=== PATIENT | female | born 1960 | race Caucasian/White ===

== ENCOUNTER 2018-03-01 08:02 | Inpatient (IN) | payer MEDICARE, OTHER ==
[2018-03-01] VITALS (7 sets, daily range): BP systolic 99–124; BP diastolic 62–69
[~2018-03-01] VITALS: Ht 335.3 cm; Wt 79.4 kg
[~2018-03-01 08:02] MED LIST: GABAPENTIN400 MG PO; ISORDIL40 MG PO; LOPRESSOR25 MG PO; METFORMIN HCL500 M2 PO; ZESTRIL10 MG PO
--- OUTSIDE RECORDS SUMMARY | 2018-03-01 08:05 | XMS REPORT | Continuity of Care Document ---
Author Author [facility] Interface Address Unknown Phone Unavailable Problems Problem Status Onset Date Classification Date Reported Comments Source UNK Active 12/04/2016 [facility] N32.1 CT ABD/PEL WITH IV Active 10/27/2016 [facility] SEPTIC SHOCK DUE TO URINARY TRACT INFECT Active 09/15/2016 [facility] ABNORMAL LABS Active 09/15/2016 [facility] CVA Active 08/02/2016 [facility] Anemia Active Problem 10/10/2017 [facility] Anxiety Active Problem 10/10/2017 [facility] Brain injury Active Problem 10/10/2017 [facility] 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 [facility] Stroke Active Problem 10/10/2017 [facility] Diabetes Active Problem 10/10/2017 [facility] GERD (<span ID="[id number]">Confirmed</span>) Active Problem 10/10/2017 [facility] Hypotension Active Problem 10/10/2017 [facility] Presence of indwelling urinary catheter Active Problem 10/10/2017 [facility] Colovesical fistula Active Problem 10/10/2017 [facility] SEVERE SEPSIS WITH SEPTIC SHOCK Active [facility] GASTROINTESTINAL HEMORRHAGE, UNSPECIFIED Active [facility] ACUTE KIDNEY FAILURE, UNSPECIFIED Active [facility] Medications Medication Details Route Status Patient Instructions Ordering Provider Order Date Source Rocephin 1,000 mg, Route: IM, ONCE, Dosing Weight 75, kg, Start date: 09/20/17 13:50:00 CDT, Stop date: 09/20/17 13:50:00 CDT Inactive 09/[facility] sugammadex (ANES) Route: IV, Drug form: SOLN, ONCE, Stop date: 01/24/17 9:43:00 CDT Inactive 01/24/2017 [facility] ondansetron (ANES) Route: IV, Drug form: INJ, ONCE, Stop date: 01/24/17 9:24:00 CDT Inactive 01/24/2017 [facility] neostigmine (ANES) Route: IV, Drug form: INJ, ONCE, Stop date: 01/24/17 9:24:00 CDT Inactive 01/24/2017 [facility] glycopyrrolate (ANES) Route: IV, Drug form: INJ, ONCE, Stop date: 01/24/17 9:24:00 CDT Inactive 01/24/2017 [facility] rocuronium (ANES) Route: IV, Drug form: INJ, ONCE, Stop date: 01/24/17 9:24:00 CDT Inactive 01/24/2017 [facility] lidocaine (ANES) Route: IV, Drug form: INJ, ONCE, Stop date: 01/24/17 9:24:00 CDT Inactive 01/24/2017 [facility] propofol (ANES) Route: IV, Drug form: INJ, ONCE, Stop date: 01/24/17 9:24:00 CDT Inactive 01/24/2017 [facility] fentaNYL (ANES) Route: IV, Drug form: INJ, ONCE, Stop date: 01/24/17 9:24:00 CDT Inactive 01/24/2017 [facility] midazolam (ANES) Route: IV, Drug form: SOLN, ONCE, Stop date: 01/24/17 9:24:00 CDT Inactive 01/24/2017 [facility] famotidine (ANES) Route: IV, Drug form: INJ, ONCE, Stop date: 01/24/17 9:24:00 CDT Inactive 01/24/2017 [facility] Acetaminophen 300 MG / Codeine Phosphate 30 MG Oral Tablet [Tylenol with Codeine #3] 2 tab, PO, Q6H, PRN Pain Score 4-6, # 30 tab, 0 Refill(s) Active 01/24/2017 [facility] Acetaminophen 325 MG / Hydrocodone Bitartrate 5 MG Oral Tablet 1 tab, Route: PO, Dosing Weight 71.818, kg, Q4H, PRN Pain Score 4-6, Start date: 01/24/17 9:17:00 CDT, Duration: 30 day, Stop date: 02/23/17 9:16:00 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 Inactive 01/24/2017 [facility] Hydromorphone 0.3 mg, Route: IVP, Q3H, Dosing Weight 71.818, kg, PRN Pain Score 4-6, Start date: 01/24/17 9:17:00 CDT, Duration: 30 day, Stop date: 02/23/17 9:16:00 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 Inactive 01/24/2017 [facility] ceFAZolin (ANES) (ANES) Route: IV, Drug form: INJ, Start date: 01/24/17 8:40:00 CDT, Stop date: 01/24/17 9:40:00 CDT Inactive 01/24/2017 [facility] ciprofloxacin (ANES) (ANES) Route: IV, Drug form: INJ, Start date: 01/24/17 8:40:00 CDT, Stop date: 01/24/17 9:40:00 CDT Inactive 01/24/2017 [facility] LR 1000 mL INJ (ANES) Route: IV, Total Volume: 1,000, Start date: 01/24/17 8:30:00 CDT, Stop date: 01/24/17 9:30:00 CDT Inactive 01/24/2017 [facility] Albuterol 0.833 MG/ML / Ipratropium [place] 0.167 MG/ML Inhalant Solution 3 mL, Route: NEB, Dosing Weight 71.818, kg, ONCE, STAT, Start date: 01/24/17 8:30:00 CDT, Stop date: 01/24/17 8:30:00 CDT Inactive 01/24/2017 [facility] Calcium Chloride 0.0014 MEQ/ML / Potassium Chloride 0.004 MEQ/ML / Sodium Chloride 0.103 MEQ/ML / Sodium Lactate 0.028 MEQ/ML Injectable Solution 1,000 mL, Rate: 25 ml/hr, Infuse over: 40 hr, Route: IV, Dosing Weight 71.818 kg, Total Volume: 1,000, Start date: 01/24/17 8:30:00 CDT, Duration: 30 day, Stop date: 02/23/17 8:29:00 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 Inactive 01/24/2017 [facility] gabapentin 300 MG Oral Capsule 300 mg=1 cap, PO, TID, # 90 cap, 0 Refill(s) Active 01/22/2017 [facility] Omnipaque 300 100 mL, Route: IV, Drug Form: SOLN, ONCE, Start date: 11/08/16 9:28:00 CDT, Stop date: 11/08/16 9:28:00 CDTNotes: (Same as:Omnipaque 300). WASTE: F/P - Black; E - Municipal Trash Bin Inactive 11/08/2016 [facility] Sulfamethoxazole 400 MG / Trimethoprim 80 MG Oral Tablet [Bactrim] 1 tab, PO, BID, X 14 day, # 28 tab, 0 Refill(s) Active 09/22/2016 [facility] Sulfamethoxazole 800 MG / Trimethoprim 160 MG Oral Tablet [Bactrim] 1 tab, PO, BID, drink plenty of fluids take w/ food, X 14 day, # 28 tab, 0 Refill(s) Inactive 09/22/2016 [facility] potassium chloride 20 mEq, 100 mL, Route: IVPB, Drug form: INJ, Q2H, Dosing Weight 71, kg, Total dose=40 mEq, Start date: 09/22/16 6:00:00 CDT, Duration: 2 doses or times, Stop date: 09/22/16 8:00:00 CDTNotes: (Same as : KCL) Infuse no faster than 10 mEq/hr if given peripherally. Inactive 09/22/2016 [facility] Magnesium Sulfate 3 gm, 6 mL, Route: IV, ONCE, Dosing Weight 71, kg, Start date: 09/22/16 5:20:00 CDT, Stop date: 09/22/16 5:20:00 CDTNotes: (Same as: MgSO4) WASTE: F/P - Sink; E - Municipal Trash Bin MEDICATION W ASTE Product Size: 1000 mg Product Wasted: ___ mg Inactive 09/22/2016 [facility] potassium chloride 20 mEq, 100 mL, Route: IVPB, Drug form: INJ, Q2H, Dosing Weight 71, kg, Total dose=40 mEq, Start date: 09/21/16 8:00:00 CDT, Duration: 2 doses or times, Stop date: 09/21/16 10:00:00 CDTNotes: (Same a s: KCL) Infuse no faster than 10 mEq/hr if given peripherally. Inactive 09/21/2016 [facility] Sodium Chloride 0.154 MEQ/ML Injectable Solution 1,000 mL, Rate: 25 ml/hr, Infuse over: 40 hr, Route: IV, Dosing Weight 71 kg, Total Volume: 1,000, Start date: 09/21/16 7:45:00 CDT, Duration: 30 day, Stop date: 10/21/16 7:44:00 CDT Inactive 09/21/2016 [facility] Miguelytely 4,000 ml, Route: PO, Drug Form: PDR/REC, Dosing Weight 71, kg, ONCE, Start date: 09/20/16 15:00:00 CDT, Duration: 1 doses or times, Stop date: 09/20/16 15:00:00 CDTNotes: (polyethylene glycol electrolyte solution 4 Liter bottle) (Same as: Dustin Colyte) Inactive 09/20/2016 [facility] Docusate Sodium 100 MG Oral Capsule [Colace] 100 mg, 1 cap, Route: PO, Drug form: CAP, BID, Dosing Weight 71, kg, Start date: 09/20/16 9:00:00 CDT, Duration: 30 day, Stop date: 10/19/16 17:00:00 CDTNotes: (Same as: Colace) (Do Not Crush) No Longer Active 09/20/2016 [facility] Magnesium Sulfate 2 gm, 50 mL, Route: IVPB, Drug form: INJ, ONCE, Dosing Weight 71, kg, Start date: 09/20/16 5:32:00 CDT, Stop date: 09/20/16 5:32:00 CDTNotes: WASTE: F/P - Sink; E - Municipal Trash Bin Inactive 09/20/2016 [facility] Golytely 4,000 ml, Route: PO, Drug Form: PDR/REC, Dosing Weight 71, kg, ONCE, Start date: 09/19/16 13:10:00 CDT, Duration: 1 doses or times, Stop date: 09/19/16 13:10:00 CDTNotes: (polyethylene glycol electrolyte solution 4 Liter bottle) (Same as: Juaquinly, Colyte) Inactive 09/19/2016 [facility] Lovenox 40 mg, 0.4 mL, Route: SUB-Q, Drug form: INJ, [id number], Dosing Weight 71, kg, Start date: 09/19/16 12:00:00 CDT, Duration: 30 day, Stop date: 10/18/16 12:00:00 CDTNotes: (Same as: Lovenox) No Longer Active 09/19/2016 [facility] Magnesium Sulfate 2 gm, Route: IVPB, Drug form: INJ, ONCE, Dosing Weight 71, kg, Start date: 09/19/16 11:29:00 CDT, Duration: 2 hr, Stop date: 09/19/16 11:29:00 CDT Inactive 09/19/2016 [facility] magnesium sulfate 1 gm, 100 mL, Route: IVPB, Drug form: INJ, Q1H, Start date: 09/19/16 11:00:00 CDT, Duration: 3 doses or times, Stop date: 09/19/16 13:00:00 CDTNotes: WASTE: F/P - Sink; E - Municipal Trash Bin Inactive 09/19/2016 [facility] Potassium Chloride 1.33 MEQ/ML Oral Solution 40 mEq, 2 tab, Route: PO, Drug form: ERTAB, ONCE, Dosing Weight 71, kg, Start date: 09/19/16 8:55:00 CDT, Stop date: 09/19/16 8:55:00 CDT Inactive 09/19/2016 [facility] Magnesium Sulfate 3 gm, Route: IV, ONCE, Dosing Weight 71, kg, Start date: 09/19/16 8:55:00 CDT, Stop date: 09/19/16 8:55:00 CDT Inactive 09/19/2016 [facility] Lipitor 10 mg, 1 tab, Route: PO, Drug form: TAB, Bedtime, Dosing Weight 71, kg, Start date: 09/18/16 21:00:00 CDT, Duration: 30 day, Stop date: 10/17/16 21:00:00 CDTNotes: (Same As: Lipitor) No Longer Active 09/19/2016 [facility] pantoprazole 40 mg, 1 tab, Route: PO, Drug form: ECTAB, Before Dinner, Dosing Weight 71, kg, Start date: 09/18/16 16:30:00 CDT, Duration: 30 day, Stop date: 10/17/16 16:30:00 CDTNotes: Tablet should not be chewed or crushed. (Same as: Protonix) No Longer Active 09/18/2016 [facility] Restoril 15 mg, 1 cap, Route: PO, Drug form: CAP, Bedtime, Dosing Weight 71, kg, PRN Sleep, Start date: 09/18/16 16:24:00 CDT, Duration: 30 day, Stop date: 10/18/16 16:23:00 CDTNotes: (Same As: Restoril) No Longer Active 09/18/2016 [facility] Ceftriaxone 1 gm, Route: IVPB, Drug form: PDR/INJ, [id number], Dosing Weight 71, kg, Start date: 09/18/16 10:00:00 CDT, Duration: 8 day, Stop date: 09/25/16 10:00:00 CDT, ABX Indication: Urinary Tract Infection Inactive 09/18/2016 [facility] Keflex 500 mg, Route: PO, Drug form: CAP, [id number], Dosing Weight 71, kg, Start date: 09/18/16 10:00:00 CDT, Duration: 8 day, Stop date: 09/25/16 22:00:00 CDT Inactive 09/18/2016 [facility] sodium chloride 0.9% 1000 ml INJ 1,000 mL 1,000 mL, Rate: 70 ml/hr, Infuse over: 14.3 hr, Route: IV, Dosing Weight 71 kg, Total Volume: 1,000, Start date: 09/18/16 9:23:00 CDT, Stop date: 10/18/16 9:22:00 CDT No Longer Active 09/18/2016 [facility] Aspirin 81 mg, 1 tab, Route: PO, Drug form: ECTAB, Daily, Dosing Weight 71, kg, Priority: NOW, Start date: 09/18/16 9:17:00 CDT, Duration: 30 day, Stop date: 10/18/16 9:00:00 CDTNotes: Do not crush or chew. (Same As: Ecotrin) No Longer Active 09/18/2016 [facility] Famotidine 20 mg, 1 tab, Route: PO, Drug form: TAB, Q12H, Dosing Weight 71, kg, Start date: 09/18/16 9:00:00 CDT, Duration: 30 day, Stop date: 10/17/16 21:00:00 CDTNotes: (Same as: Pepcid) Inactive 09/18/2016 [facility] Morphine 2 mg, 1 mL, Route: IVP, Drug form: INJ, Q3H, Dosing Weight 71, kg, PRN Pain Score 7-10, Start date: 09/17/16 21:42:00 CDT, Duration: 30 day, Stop date: 10/17/16 21:41:00 CDT, pain score 1-3 if po pain m eds fail or pt not tolerating poNotes: (Same as:MORPhine Sulfate) No Longer Active 09/18/2016 [facility] Acetaminophen 325 MG / Hydrocodone Bitartrate 10 MG Oral Tablet 1 tab, Route: PO, Drug Form: TAB, Dosing Weight 71, kg, Q4H, PRN Pain Score 6-10, Start date: 09/17/16 21:42:00 CDT, Duration: 30 day, Stop date: 10/17/16 21:41:00 CDTNotes: Do not exceed 4gm/day of acetaminophen. (Same as: Tyrone 325/10) No Longer Active 09/18/2016 [facility] Acetaminophen 325 MG / Hydrocodone Bitartrate 5 MG Oral Tablet 1 tab, Route: PO, Drug Form: TAB, Dosing Weight 71, kg, Q4H, PRN Pain Score 1-5, Start date: 09/17/16 21:42:00 CDT, Duration: 30 day, Stop date: 10/17/16 21:41:00 CDTNotes: (Same as: Tyrone 325/5) Do not exceed 4gm/day of acetaminophen. No Longer Active 09/18/2016 [facility] Ondansetron 4 mg, 2 mL, Route: IVP, Drug form: INJ, Q6H, Dosing Weight 71, kg, PRN Nausea & Vomiting, Start date: 09/17/16 21:42:00 CDT, Duration: 30 day, Stop date: 10/17/16 21:41:00 CDTNotes: (Same as: Zofran) MEDICATION WASTE Product Size: 4 mg Product Wasted: ___ mg No Longer Active 09/18/2016 [facility] Magnesium Oxide 800 mg, 2 tab, Route: PO, Drug form: TAB, PRN, Dosing Weight 71, kg, PRN Abnormal Lab Result, FOR ICU USE ONLY, Start date: 09/17/16 8:43:00 CDT, Duration: 30 day, Stop date: 10/17/16 8:42:00 CDTNotes: (Same as: Mag-Ox 400) Magnesium oxide [id number] elemental magnesium Dose=____mg magnesium oxide (___mg elemental magnesium) No Longer Active 09/17/2016 [facility] Calcium Carbonate 500 MG Chewable Tablet 500 mg, 1 tab, Route: PO, Drug form: CHEWTAB, PRN, Dosing Weight 71, kg, PRN Abnormal Lab Result, FOR ICU USE ONLY, Start date: 09/17/16 8:43:00 CDT, Duration: 30 day, Stop date: 10/17/16 8:42:00 CDTNotes: (Same As: Tums) Calcium Carbonate 500 fh=068 mg elemental calcium Dose= mg calcium carbonate ( mg elemental calcium) No Longer Active 09/17/2016 [facility] Calcium Gluconate 1 gm, 50 mL, Route: IVPB, Drug form: INJ, PRN, Dosing Weight 71, kg, PRN Abnormal Lab Result, Start date: 09/17/16 8:43:00 CDT, Duration: 30 day, Stop date: 10/17/16 8:42:00 CDT, FOR ICU USE ONLYNotes: WASTE: F/P - Sink; E - Municipal Trash Bin No Longer Active 09/17/2016 [facility] potassium phosphate + sodium chloride 0.9% INJ 250 mL 45 mmol, 15 mL, Route: IVPB, PRN, Dosing Weight 71, kg, PRN Abnormal Lab Result, Start date: 09/17/16 8:43:00 CDT, Duration: 30 day, Stop date: 10/17/16 8:42:00 CDT, FOR ICU USE ONLYNotes: (Same as: K Phosphate.) 1 mMol phoshate has 1.47 mEq potassium Infuse over 4 hours No Longer Active 09/17/2016 [facility] potassium phosphate-sodium phosphate 250 mg-280 mg-160 mg oral powder for reconstitution 2 pkt, Route: PO, Drug Form: PDR/REC, Dosing Weight 71, kg, PRN, PRN Abnormal Lab Result, FOR ICU USE ONLY, Start date: 09/17/16 8:43:00 CDT, Duration: 30 day, Stop date: 10/17/16 8:42:00 CDTNotes: (Same as: Phos-NaK) Each 1.5 gm pkt has 250mg phosphorous. Mix w/2.5oz water and stir. No Longer Active 09/17/2016 [facility] Magnesium Sulfate 2 gm, 50 mL, Route: IVPB, Drug form: INJ, PRN, Dosing Weight 71, kg, PRN Abnormal Lab Result, Start date: 09/17/16 8:43:00 CDT, Duration: 30 day, Stop date: 10/17/16 8:42:00 CDT, FOR ICU USE ONLYNotes: WASTE: F/P - Sink; E - Municipal Trash Bin No Longer Active 09/17/2016 [facility] sodium phosphate + D5W 250 mL 30 mmol, 10 mL, Route: IVPB, PRN, Dosing Weight 71, kg, PRN Abnormal Lab Result, Start date: 09/17/16 8:43:00 CDT, Duration: 30 day, Stop date: 10/17/16 8:42:00 CDT, FOR ICU USE ONLY No Longer Active 09/17/2016 [facility] potassium chloride 20 mEq, 15 mL, Route: NJ, Drug form: LIQ, PRN, Dosing Weight 71, kg, PRN Abnormal Lab Result, Start date: 09/17/16 8:43:00 CDT, Duration: 30 day, Stop date: 10/17/16 8:42:00 CDT, FOR ICU USE ONLYNotes: (Same as: Potassium Chloride) No Longer Active 09/17/2016 [facility] cefepime 1 gm, Route: IVPB, [id number], Dosing Weight 72.727, kg, (CrCl 10 - 29 ml/min), Start date: 09/16/16 22:00:00 CDT, Duration: 10 day, Stop date: 09/25/16 22:00:00 CDT, ABX Indication: Genital Tract InfectionNotes: (Same As: Maxipime) MEDICATION WASTE Product Size: 1000 mg Product Wasted: ___ mg No Longer Active 09/17/2016 [facility] Zofran 4 mg, 2 mL, Route: IVP, Drug form: INJ, Q8H, Dosing Weight 71, kg, PRN Nausea, Start date: 09/16/16 18:17:00 CDT, Duration: 30 day, Stop date: 10/16/16 18:16:00 CDTNotes: (Same as: Zofran) MEDICATION WASTE Product Size: 4 mg Product Wasted: ___ mg No Longer Active 09/16/2016 [facility] Saline Flush 0.9% 10 ml, Route: IVP, Drug Form: INJ, Dosing Weight 72.727, kg, Q12H, Start date: 09/16/16 9:00:00 CDT, Duration: 30 day, Stop date: 10/15/16 21:00:00 CDTNotes: (Same as: BD Posiflush) No Longer Active 09/16/2016 [facility] Aspirin 300 mg, 1 supp, Route: NH, Drug form: SUPP, Q24H, Dosing Weight 72.727, kg, Start date: 09/16/16 0:00:00 CDT, Duration: 30 day, Stop date: 10/15/16 0:00:00 CDTNotes: Refrigerate. No Longer Active 09/16/2016 [facility] Saline Flush 0.9% 10 ml, Route: IVP, Drug Form: INJ, Dosing Weight 72.727, kg, PRN, PRN Line Flush, Start date: 09/15/16 23:37:00 CDT, Duration: 30 day, Stop date: 10/15/16 23:36:00 CDTNotes: (Same as: BD Posiflush) No Longer Active 09/16/2016 [facility] Nystatin 100 UNT/MG Topical Powder 1 appl, Route: TOP, PRN, Drug form: PWDR, PRN For Fungal Prophylaxis, Start date: 09/15/16 23:37:00 CDT, Duration: 30 day, Stop date: 10/15/16 23:36:00 CDTNotes: (Same as:Mycostatin, Nilstat) For external use only. No Longer Active 09/16/2016 [facility] Metformin hydrochloride 500 MG Oral Tablet 500 mg=1 tab, PO, BID, 0 Refill(s) Active 09/16/2016 [facility] Senna 8.6 mg oral tablet 17.2 mg=2 tab, PO, BID, PRN as needed for constipation, 0 Refill(s) Active 09/16/2016 [facility] Ondansetron 4 MG Oral Tablet [Zofran] 4 mg=1 tab, PO, Q6H, PRN Nausea & Vomiting, 0 Refill(s) Active 09/16/2016 [facility] Acetaminophen 300 MG / Codeine Phosphate 30 MG Oral Tablet [Tylenol with Codeine #3] 2 tab, PO, Q6H, PRN Pain Score 4-6, 0 Refill(s) Active 09/16/2016 [facility] Temazepam 15 MG Oral Capsule [Restoril] 15 mg=1 cap, PO, Bedtime, PRN as needed for sleep, 0 Refill(s) Active 09/16/2016 [facility] pantoprazole 40 mg oral enteric coated tablet 40 mg=1 tab, PO, Daily, 0 Refill(s) Active 09/16/2016 [facility] lisinopril 5 mg oral tablet 5 mg=1 tab, PO, Daily, 0 Refill(s) Active 09/16/2016 [facility] atorvastatin 10 MG Oral Tablet [Lipitor] 10 mg=1 tab, PO, Bedtime, 0 Refill(s) Active 09/16/2016 [facility] Insulin Lispro 100 UNT/ML Injectable Solution See Special Instructions, SUB-Q, TID-Before Meals, Check blood sugar before breakfast, lunch, and dinner, and inject correction doses: Inject 2 unit if Sugar 150-199, Inject 4 units if Sugar 200-249, Inject 6 units if Sugar 250-299, Inject 8 units if... Active 09/16/2016 [facility] bisacodyl 10 mg rectal suppository 10 mg=1 supp, NH, Daily, 0 Refill(s) Active 09/16/2016 [facility] citalopram 20 mg oral tablet 20 mg=1 tab, PO, Bedtime, 0 Refill(s) Active 09/16/2016 [facility] baclofen 10 mg oral tablet 10 mg=1 tab, PO, TID, 0 Refill(s) Active 09/16/2016 [facility] Aspirin 81 MG Chewable Tablet 81 mg=1 tab, PO, Daily, 0 Refill(s) Active 09/16/2016 [facility] Acetaminophen 650 mg, PO, Q6H, PRN Pain 1-3/Temp > 100.4 F, 0 Refill(s) Active 09/16/2016 [facility] sodium bicarbonate 8.4% additive 150 mEq + D5W 1,000 mL 1,000 mL, Rate: 150 ml/hr, Infuse over: 7.7 hr, Route: IV, Dosing Weight 72.727 kg, Total Volume: 1,150, Priority: STAT, Start date: 09/15/16 22:52:00 CDT, Duration: 30 day, Stop date: 10/15/16 22:51:00 CDTNotes: (sodium bicarb 8.4% (1 mEq/ml) 50 ml VL) No Longer Active 09/16/2016 [facility] Fentanyl 50 microgram, Route: IV, ONCE, Dosing Weight 72.727, kg, Start date: 09/15/16 22:45:00 CDT, Stop date: 09/15/16 22:45:00 CDT Inactive 09/16/2016 [facility] Norepinephrine 8 mg, 8 mL, Rate: Titrate, Start Dose: 0.1 microgram/kg/min, Titration: 0.05 microgram/kg/min every 2 - 5 minutes, Goal(s): MAP >=65 mmHg, Max Dose: 1 microgram/kg/min, Route: IV, Dosing Weight 72.727 kg, Total Volume: 250, Start date: 09/15/16 21:52...Notes: Not for direct administration - DILUTE. Protect from light. (Same as:Levophed). Administer by either central venous catheter or peripherally-inserted central catheter (PICC) line. No Longer Active 09/16/2016 [facility] Sodium Chloride 0.154 MEQ/ML Injectable Solution 1,000 mL, 1,000 ml/hr, Infuse Over: 1 hr, Route: IV, 1,000, Drug form: INJ, ONCE, Priority: STAT, Dosing Weight 72.727 kg, Start date: 09/15/16 21:39:00 CDT, Duration: 1 doses or times, Stop date: 09/15/16 21:39:00 CDT Inactive 09/16/2016 [facility] Sodium Chloride 0.154 MEQ/ML Injectable Solution 500 mL, 500 ml/hr, Infuse Over: 1 hr, Route: IV, 500, Drug form: INJ, ONCE, Priority: STAT, Dosing Weight 72.727 kg, Start date: 09/15/16 21:11:00 CDT, Duration: 1 doses or times, Stop date: 09/15/16 21:11:00 CDT Inactive 09/16/2016 [facility] Aspirin 81 mg, 1 tab, Route: PO, Drug form: ECTAB, ONCE, Dosing Weight 72.727, kg, Priority: STAT, Start date: 09/15/16 20:57:00 CDT, Stop date: 09/15/16 20:57:00 CDTNotes: Do not crush or chew. (Same As: Ecotrin) Inactive 09/16/2016 [facility] cefepime 1 gm, Route: IVPB, ONCE, Dosing Weight 72.727, kg, Priority: STAT, Start date: 09/15/16 20:57:00 CDT, Duration: 1 doses or times, Stop date: 09/15/16 20:57:00 CDT, ABX Indication: Urinary Tract Infectio nNotes: (Same As: Maxipime) MEDICATION WASTE Product Size: 1000 mg Product Wasted: ___ mg Inactive 09/16/2016 [facility] Sodium Chloride 0.154 MEQ/ML Injectable Solution 500 mL, 500 ml/hr, Infuse Over: 1 hr, Route: IV, 500, Drug form: INJ, ONCE, Priority: STAT, Dosing Weight 72.727 kg, Start date: 09/15/16 20:48:00 CDT, Duration: 1 doses or times, Stop date: 09/15/16 20:48:00 CDT Inactive 09/16/2016 [facility] sodium chloride 0.9% INJ 250 mL 250 mL, Rate: Sleeping Car Porter for use with blood product administration., Dosing Weight 72.727, kg, Route: IV, Total Volume: 250, Priority: Routine, Start Date: 09/15/16 19:59:00 CDT, Duration: 1 day, Stop date: 09/16/16 19:58:00 CDT, Replace Every: 24 hr No Longer Active 09/16/2016 [facility] pantoprazole 80 mg, Route: IVP, Drug form: INJ, ONCE, Dosing Weight 72.727, kg, Priority: STAT, Start date: 09/15/16 19:57:00 CDT, Stop date: 09/15/16 19:57:00 CDTNotes: For IV push reconstitute with 10 ml 0.9% sodi um chloride and push over 2 minutes. (Same as: Protonix) Inactive 09/16/2016 [facility] Sodium Chloride 0.154 MEQ/ML Injectable Solution 100 mL, Rate: 10 ml/hr, Infuse over: 10 hr, Route: IV, Dosing Weight 72.727 kg, Total Volume: 100, Start date: 09/15/16 19:57:00 CDT, Duration: 72 hr, Stop date: 09/18/16 19:56:00 CDT No Longer Active 09/16/2016 [facility] Saline Flush 0.9% 10 mL, Route: IVP, Drug Form: INJ, Dosing Weight 72.727, kg, PRN, PRN Line Flush, Start date: 09/15/16 19:57:00 CDT, Duration: 30 day, Stop date: 10/15/16 19:56:00 CDTNotes: (Same as: BD Posiflush) No Longer Active 09/16/2016 [facility] {3 (5000 MG Miconazole Nitrate 40 MG/ML Prefilled Applicator) / 1 (9000 MG) (Miconazole Nitrate 20 MG/ML Vaginal Cream) } Pack 1 appl, VAG, Bedtime, 0 Refill(s) Active 09/15/2016 [facility] Fluconazole 150 MG Oral Tablet [Diflucan] 150 mg=1 tab, PO, Daily, 0 Refill(s) Active 09/14/2016 [facility] Allergies, Adverse Reactions, Alerts Substance Category Reaction Severity Reaction type Status Date Reported Comments Source Immunizations Immunization Date Given Site Status Last Updated Comments Source Results Order Name Results Value Reference Range Date Interpretation Comments Source ELECTROLYTES AGAP 11.1 meq/L 10.0 - 20.0 01/22/2017 [facility] ELECTROLYTES eGFR 102 mL/min/1.73m2 01/22/2017 Result Comment: The eGFR is calculated using the CKD-EPI formula. In most young, healthy individuals the eGFR will be >90 mL/min/1.73m2. The eGFR declines with age. An eGFR of 60-89 may be normal in some populations, particularly the elderly, for whom the CKD-EPI formula has not been extensively validated. Use of the eGFR is not recommended in the following populations: Individuals with unstable creatinine concentrations, including patients and those with serious co-morbid conditions. Patients with extremes in muscle mass or diet. The data above are obtained from the National Kidney Disease Education Program (NKDEP) which additionally recommends that when the eGFR is used in patients with extremes of body mass index for purposes of drug dosing, the eGFR should be multiplied by the estimated BMI. [facility] ELECTROLYTES Chloride Lvl 104 meq/L 95 - 109 01/22/2017 [facility] ELECTROLYTES Potassium Lvl 4.1 meq/L 3.5 - 5.1 01/22/2017 [facility] ELECTROLYTES Calcium Lvl 9.3 mg/dL 8.5 - 10.5 01/22/2017 [facility] ELECTROLYTES CO2 28 meq/L 24 - 32 01/22/2017 [facility] ELECTROLYTES Glucose Lvl 119 mg/dL 70 - 99 01/22/2017 [facility] ELECTROLYTES BUN 10 mg/dL 7 - 22 01/22/2017 [facility] ELECTROLYTES Sodium Lvl 139 meq/L 135 - 145 01/22/2017 [facility] ELECTROLYTES Creatinine Lvl 0.61 mg/dL 0.50 - 1.40 01/22/2017 [facility] HEMATOLOGY Monocytes # 0.3 K/CMM 0.0 - 0.8 01/22/2017 [facility] HEMATOLOGY Segs-Bands # 4.0 K/CMM 1.5 - 8.1 01/22/2017 [facility] HEMATOLOGY Lymphocytes # 1.8 K/CMM 1.0 - 5.5 01/22/2017 [facility] HEMATOLOGY Eosinophils # 0.3 K/CMM 0.0 - 0.5 01/22/2017 [facility] HEMATOLOGY Basophils # 0.1 K/CMM 0.0 - 0.2 01/22/2017 [facility] HEMATOLOGY Basophils 1.1 % 0.0 - 1.0 01/22/2017 [facility] HEMATOLOGY Eosinophils 5.3 % 0.0 - 4.0 01/22/2017 [facility] HEMATOLOGY Lymphocytes 27.0 % 20.0 - 40.0 01/22/2017 [facility] HEMATOLOGY Monocytes 5.1 % 2.0 - 12.0 01/22/2017 [facility] HEMATOLOGY Segs 61.5 % 45.0 - 75.0 01/22/2017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 Hg) 76 01/24/2017 [facility] Respitory Rate 16 01/24/2017 [facility] Heart Rate 60 01/24/2017 [facility] Systolic (mm Hg) 132 01/24/2017 [facility] Diastolic (mm Hg) 68 01/24/2017 [facility] Respitory Rate 15 01/24/2017 [facility] Systolic (mm Hg) 123 01/24/2017 [facility] Diastolic (mm Hg) 57 01/24/2017 [facility] Heart Rate 72 01/22/2017 [facility] Temperature Oral (F) 97.4 F 01/22/2017 [facility] Height 180.34 cm 01/22/2017 [facility] Weight 71.818 01/22/2017 [facility] BMI Calculated 22.08 01/22/2017 [facility] Heart Rate 90 09/22/2016 [facility] Respitory Rate 18 09/22/2016 [facility] Systolic (mm Hg) 107 09/22/2016 [facility] Diastolic (mm Hg) 66 09/22/2016 [facility] Temperature Oral (F) 98.3 F 09/22/2016 [facility] Respitory Rate 18 09/22/2016 [facility] Heart Rate 101 09/22/2016 [facility] Systolic (mm Hg) 114 09/22/2016 [facility] Diastolic (mm Hg) 74 09/22/2016 [facility] Temperature Oral (F) 98.9 F 09/22/2016 [facility] Temperature Oral (F) 98.1 F 09/22/2016 [facility] Systolic (mm Hg) 127 09/22/2016 [facility] Diastolic (mm Hg) 74 09/22/2016 [facility] Heart Rate 100 09/22/2016 [facility] Respitory Rate 18 09/22/2016 [facility] Weight 71 09/16/2016 [facility] BMI Calculated 24.57 09/16/2016 [facility] Height 170 cm 09/16/2016 [facility] BMI Calculated 25.11 09/16/2016 [facility] Weight 72.727 09/16/2016 [facility] Height 170.18 cm 09/16/2016 [facility] Encounters Location Location Details Encounter Type Encounter Number Reason For Visit Attending Provider ADM Date DC Date Status Source [facility] Inpatient [id number] Manuel Maynardlaura 09/16/2016 09/23/2016 [facility] Outpatient [id number] Nareshjordana Foremanchad 11/08/2016 11/09/2016 [facility] Day Surgery [id number] Cole Jenningsrodo 01/24/2017 01/24/2017 [facility] Outpatient [id number] [facility] 07/04/2017 [facility] U[facility] Outpatient [id number] [facility] 07/04/2017 07/05/2017 [facility] Out[facility] [id number] PROCEDURE ROOM 2 08/09/2017 Active [facility] [id number] PROCEDURE ROOM 1 08/09/2017 Active [facility] Outpatient [id number] [facility] 08/09/2017 Active [facility] U[facility] Outpatient [id number] [facility] 08/09/2017 08/10/2017 [facility] Urology [facility] Outpatient [id number] [facility] 08/09/2017 08/10/2017 [facility] U[facility] Outpatient [id number] [facility] 08/09/2017 08/10/2017 [facility] Outpatient [id number] PROCEDURE ROOM 2 09/20/2017 Active [facility] Outpatient [id number] PROCEDURE ROOM 1 09/20/2017 Active [facility] Outpatient [id number] [facility] 09/20/2017 Active [facility] [id number] [facility] 09/20/2017 09/21/2017 [facility] Urology [facility] Outpatient [id number] [facility] 09/20/2017 09/21/2017 [facility] [id number] [facility] 09/20/2017 09/21/2017 [facility] Outpatient [id number] [facility] 11/29/2017 [facility] [id number] [facility] 12/06/2017 Active [facility] Outpatient [id number] [facility] 12/06/2017 Active [facility] Outpatient [id number] [facility] 03/14/2018 Active [facility] Procedures Procedure Code Date Perfomer Comments Source Colonoscopy [id number] [facility] Cystoscopy [id number] [facility] Esophagogastroduodenoscopy [id number] [facility] Hysterectomy [id number] [facility] Insertion of coronary artery stent [id number] [facility] Placement of stent [id number] [facility] Tonsillectomy [id number] [facility] Colonoscopy [id number] [facility] [id number] [facility] Esophagogastroduodenoscopy [id number] [facility] Hysterectomy [id number] [facility] Insertion of coronary artery stent [id number] [facility] Placement of stent [id number] [facility] Tonsillectomy [id number] [facility]
--- OUTSIDE RECORDS SUMMARY | 2018-03-01 08:06 | XMS REPORT ---
Author Author [facility] Address Unknown Phone Unavailable Care Team Providers Care An/Syq 13 Nav/C2 Operator Name Role Phone Unavailable Unavailable Problems This patient has no known problems. Allergies, Adverse Reactions, Alerts This patient has no known allergies or adverse reactions. Medications This patient has no known medications. Encounters Start Date/Time End Date/Time Encounter Type Admission Type Attending [facility] Care Facility Care Department Encounter ID 2016-08-02 14:23:00 Inpatient [facility] [id number] 2016-08-29 00:00:00 2016-08-29 00:00:00 Outpatient [facility] [id number] 2016-07-28 01:01:19 2016-07-28 01:01:19 Emergency [facility] [id number]
--- OUTSIDE RECORDS SUMMARY | 2018-03-01 08:06 | XMS REPORT | Summary of Care ---
Author Author [facility] Organization [facility] Address Unknown Phone Unavailable Encounter HQ Chandanr_amor(FIN) [id number] Date(s): 08/09/17 - 08/09/17 [facility] [address], [address] [place] [address] [phone] Discharge Disposition: Home or Self Care Attending Physician: Sven Dove MD Vital Signs No data available for this section Problem List Condition Effective Dates Status Health Status Informant Anemia(Confirmed) Active Anxiety(Confirmed) Active 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 Stroke(Confirmed) Active Diabetes(Confirmed) Active GERD Active (gastroesophageal reflux disease)(Confirmed) Hypotension(Confirme Active d) Presence of Active indwelling urinary catheter(Confirmed) Colovesical Active fistula(Confirmed) 1left side Allergies, Adverse Reactions, Alerts Substance Reaction Severity Status NKDA Active Medications No data available for this section Results No data available for this section Immunizations No data available for this section Procedures Procedure Date Related Diagnosis Body Site Status Colonoscopy Completed Cystoscopy Completed Esophagogastroduodenoscopy Completed Hysterectomy Completed Insertion of coronary artery stent Completed Placement of stent Completed Tonsillectomy Completed Social History Social History Type Response Alcohol Past Smoking Status Never smoker; Exposure to Tobacco Smoke None; Cigarette Smoking Last 365 Days No; Reg Smoking Cessation Counseling No entered on: 07/04/17 Assessment and Plan No data available for this section
--- OUTSIDE RECORDS SUMMARY | 2018-03-01 08:06 | XMS REPORT | Summary of Care ---
Author Author [facility] Organization [facility] Address Unknown Phone Unavailable Encounter BRENDA Healy(PEACE) [id number] Date(s): 01/24/17 - 01/24/17 [facility] [address] [place] [address]- [phone] Discharge Disposition: Home or Self Care Attending Physician: Naresh Barksdale MD Referring Physician: Cole Tyson MD Vital Signs 1 2 3 Most recent to oldest [Reference Range]: 180.34 cm (01/22/17 9:33 AM) Height 97.4 DegF (01/22/17 11:16 AM) Temperature Oral [96.4-99.1 DegF] 135/76 mmHg (01/24/17 11:00 AM) 132/68 mmHg (01/24/17 10:15 AM) 123/57 mmHg (01/24/17 10:05 AM) Blood Pressure [90-140/60-90 mmHg] 14 BRMIN (01/24/17 11:00 AM) 16 BRMIN (01/24/17 10:15 AM) 15 BRMIN (01/24/17 10:05 AM) Respiratory Rate [14-20 BRMIN] 62 bpm (01/24/17 11:00 AM) 60 bpm (01/24/17 10:15 AM) 72 bpm (01/22/17 11:16 AM) Peripheral Pulse Rate [60-100 bpm] 71.818 kg (01/22/17 9:33 AM) Weight 22.08 m2 (01/22/17 9:33 AM) Body Mass Index Problem List Condition Effective Dates Status Health Status Informant Anemia(Confirmed) Active Anxiety(Confirmed) Active 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 Stroke(Confirmed) Active Diabetes(Confirmed) Active GERD Active (gastroesophageal reflux disease)(Confirmed) Hypotension(Confirme Active d) Presence of Active indwelling urinary catheter(Confirmed) Colovesical Active fistula(Confirmed) 1left side Allergies, Adverse Reactions, Alerts Substance Reaction Severity Status NKDA Active Medications acetaminophen-hydrocodone 325 mg-5 mg oral tablet 1 tab, Route: PO, Dosing Weight 71.818, kg, Q4H, PRN Pain Score 4-6, Start date: 01/24/17 9:17:00 CDT, Duration: 30 day, Stop date: 02/23/17 9:16:00 N[employer]PER GR[employer]ER Start Date: 01/24/17 Stop Date: 01/24/17 Status: Discontinued albuterol-ipratropium 2.5-0.5 mg inhalation solution 3 mL, Route: NEB, Dosing Weight 71.818, kg, ONCE, STAT, Start date: 01/24/17 8:3 0:00 CDT, Stop date: 01/24/17 8:30:00 CDT Start Date: 01/24/17 Stop Date: 01/24/17 Status: Discontinued ceFAZolin (ANES) (ANES) Route: IV, Drug form: INJ, Start date: 01/24/17 8:40:00 CDT, Stop date: 01/24/17 9:40:00 CDT Start Date: 01/24/17 Stop Date: 01/24/17 Status: Completed ciprofloxacin (ANES) (ANES) Route: IV, Drug form: INJ, Start date: 01/24/17 8:40:00 CDT, Stop date: 01/24/17 9:40:00 CDT Start Date: 01/24/17 Stop Date: 01/24/17 Status: Completed famotidine (ANES) Route: IV, Drug form: INJ, ONCE, Stop date: 01/24/17 9:24:00 CDT Start Date: 01/24/17 Stop Date: 01/24/17 Status: Completed fentaNYL (ANES) Route: IV, Drug form: INJ, ONCE, Stop date: 01/24/17 9:24:00 CDT Start Date: 01/24/17 Stop Date: 01/24/17 Status: Completed gabapentin 300 mg oral capsule 300 mg=1 cap, PO, TID, # 90 cap, 0 Refill(s) Start Date: 01/22/17 Status: Ordered glycopyrrolate (ANES) Route: IV, Drug form: INJ, ONCE, Stop date: 01/24/17 9:24:00 CDT Start Date: 01/24/17 Stop Date: 01/24/17 Status: Completed hydromorphone 0.3 mg, Route: IVP, Q3H, Dosing Weight 71.818, kg, PRN Pain Score 4-6, Start ida e: 01/24/17 9:17:00 CDT, Duration: 30 day, Stop date: 02/23/17 9:16:00 NAPPER GRINDER Start Date: 01/24/17 Stop Date: 01/24/17 Status: Discontinued Lactated Ringers Injection IV 1000 mL 1,000 mL, Rate: 25 ml/hr, Infuse over: 40 hr, Route: IV, Dosing Weight 71.818 kg , Total Volume: 1,000, Start date: 01/24/17 8:30:00 CDT, Duration: 30 day, Stop date: 02/23/17 8:29:00 N[employer]PER GRINDER Start Date: 01/24/17 Stop Date: 01/24/17 Status: Discontinued lidocaine (ANES) Route: IV, Drug form: INJ, ONCE, Stop date: 01/24/17 9:24:00 CDT Start Date: 01/24/17 Stop Date: 01/24/17 Status: Completed LR 1000 mL INJ (ANES) Route: IV, Total Volume: 1,000, Start date: 01/24/17 8:30:00 CDT, Stop date: 03/02 9:30:00 CDT Start Date: 01/24/17 Stop Date: 01/24/17 Status: Completed midazolam (ANES) Route: IV, Drug form: SOLN, ONCE, Stop date: 01/24/17 9:24:00 CDT Start Date: 01/24/17 Stop Date: 01/24/17 Status: Completed neostigmine (ANES) Route: IV, Drug form: INJ, ONCE, Stop date: 01/24/17 9:24:00 CDT Start Date: 01/24/17 Stop Date: 01/24/17 Status: Completed ondansetron (ANES) Route: IV, Drug form: INJ, ONCE, Stop date: 01/24/17 9:24:00 CDT Start Date: 01/24/17 Stop Date: 01/24/17 Status: Completed propofol (ANES) Route: IV, Drug form: INJ, ONCE, Stop date: 01/24/17 9:24:00 CDT Start Date: 01/24/17 Stop Date: 01/24/17 Status: Completed rocuronium (ANES) Route: IV, Drug form: INJ, ONCE, Stop date: 01/24/17 9:24:00 CDT Start Date: 01/24/17 Stop Date: 01/24/17 Status: Completed sugammadex (ANES) Route: IV, Drug form: SOLN, ONCE, Stop date: 01/24/17 9:43:00 CDT Start Date: 01/24/17 Stop Date: 01/24/17 Status: Completed Tylenol with Codeine #3 oral tablet 2 tab, PO, Q6H, PRN Pain Score 4-6, # 30 tab, 0 Refill(s) Start Date: 01/24/17 Stop Date: 02/01/17 Status: Ordered Results BLOOD BANK RESULTS Most recent to 1 oldest [Reference Range]: ABO/Rh B POS *Unknown* (01/22/17 10:14 AM) Antibody Scrn Negative (01/22/17 10:14 AM) ELECTROLYTES Most recent to 1 oldest [Reference Range]: Sodium Lvl [135-145 139 mEq/L mEq/L] (01/22/17 10:15 AM) Potassium Lvl 4.1 mEq/L [3.5-5.1 mEq/L] (01/22/17 10:15 AM) Chloride Lvl [95-109 104 mEq/L mEq/L] (01/22/17 10:15 AM) CO2 [24-32 mEq/L] 28 mEq/L (01/22/17 10:15 AM) AGAP [10.0-20.0 11.1 mEq/L mEq/L] (01/22/17 10:15 AM) CHEM PANEL Most recent to 1 oldest [Reference Range]: Creatinine Lvl 0.61 mg/dL [0.50-1.40 mg/dL] (01/22/17 10:15 AM) eGFR 102 mL/min/1.73m2 1 *NA* (01/22/17 10:15 AM) BUN [7-22 mg/dL] 10 mg/dL (01/22/17 10:15 AM) Glucose Lvl [70-99 119 mg/dL mg/dL] *HI* (01/22/17 10:15 AM) Calcium Lvl 9.3 mg/dL [8.5-10.5 mg/dL] (01/22/17 10:15 AM) 1Result Comment: The eGFR is calculated using the [...] from the National Kidney Disease Education Program ( NKDEP) which additionally recommends that when the eGFR is used in patients with extremes of body mass index for purposes of drug dosing, the eGFR should be mul tiplied by the estimated BMI. URINE AND STOOL Most recent to 1 oldest [Reference Range]: UA Turbidity [Clear] Marked *ABN* (01/22/17 10:15 AM) UA Color [Yellow] Yellow *NA* (01/22/17 10:15 AM) UA pH [5.0-8.0] 5.0 (01/22/17 10:15 AM) UA Spec Grav 1.017 [<=1.030] (01/22/17 10:15 AM) UA Glucose [Negative Negative mg/dL mg/dL] *NA* (01/22/17 10:15 AM) UA Blood [Negative] Small *ABN* (01/22/17 10:15 AM) UA Ketones [Negative Negative mg/dL mg/dL] *NA* (01/22/17 10:15 AM) UA Protein [Negative 30 mg/dL mg/dL] *ABN* (01/22/17 10:15 AM) UA Urobilinogen <=1.0 mg/dL [0.1-1.0 mg/dL] *NA* (01/22/17 10:15 AM) UA Bili [Negative] Negative *NA* (01/22/17 10:15 AM) UA Leuk Est Large [Negative] *ABN* (01/22/17 10:15 AM) UA Nitrite Negative [Negative] (01/22/17 10:15 AM) UA WBC [0-5 /HPF] >182 /HPF *HI* (01/22/17 10:15 AM) UA RBC [0-2 /HPF] 22 /HPF *HI* (01/22/17 10:15 AM) UA Sq Epi [Few /LPF] Occasional /LPF *NA* (01/22/17 10:15 AM) UA Hyal Cast [0-2 3 /LPF /LPF] *HI* (01/22/17 10:15 AM) UA Mucus [None Seen Few /LPF /LPF] *NA* (01/22/17 10:15 AM) UA [place] Yeast [None Occasional /HPF Seen /HPF] *ABN* (01/22/17 10:15 AM) HEMATOLOGY Most recent to 1 oldest [Reference Range]: WBC [3.7-10.4 K/CMM] 6.6 K/CMM (01/22/17 10:15 AM) RBC [4.20-5.40 4.10 M/CMM M/CMM] *LOW* (01/22/17 10:15 AM) Hgb [12.0-16.0 g/dL] 11.2 g/dL *LOW* (01/22/17 10:15 AM) Hct [36.0-48.0 %] 32.8 % *LOW* (01/22/17 10:15 AM) MCV [80.0-98.0 fL] 79.9 fL *LOW* (01/22/17 10:15 AM) MCH [27.0-31.0 pg] 27.3 pg (01/22/17 10:15 AM) MCHC [32.0-36.0 34.2 g/dL g/dL] (01/22/17 10:15 AM) RDW [11.5-14.5 %] 13.8 % (01/22/17 10:15 AM) Platelet [133-450 270 K/CMM K/CMM] (01/22/17 10:15 AM) MPV [7.4-10.4 fL] 7.8 fL (01/22/17 10:15 AM) Segs [45.0-75.0 %] 61.5 % (01/22/17 10:15 AM) Lymphocytes 27.0 % [20.0-40.0 %] (01/22/17 10:15 AM) Monocytes [2.0-12.0 5.1 % %] (01/22/17 10:15 AM) Eosinophils [0.0-4.0 5.3 % %] *HI* (01/22/17 10:15 AM) Basophils [0.0-1.0 1.1 % %] *HI* (01/22/17 10:15 AM) Segs-Bands # 4.0 K/CMM [1.5-8.1 K/CMM] (01/22/17 10:15 AM) Lymphocytes # 1.8 K/CMM [1.0-5.5 K/CMM] (01/22/17 10:15 AM) Monocytes # [0.0-0.8 0.3 K/CMM K/CMM] (01/22/17 10:15 AM) Eosinophils # 0.3 K/CMM [0.0-0.5 K/CMM] (01/22/17 10:15 AM) Basophils # [0.0-0.2 0.1 K/CMM K/CMM] (01/22/17 10:15 AM) PT [12.0-14.7 14.6 seconds seconds] (01/22/17 10:15 AM) INR [0.85-1.17] 1.12 (01/22/17 10:15 AM) PTT [22.9-35.8 35.4 seconds seconds] (01/22/17 10:15 AM) Immunizations No data available for this section Procedures Procedure Date Related Diagnosis Body Site Colonoscopy Cystoscopy Esophagogastroduodenoscopy Hysterectomy Insertion of coronary artery stent Placement of stent Tonsillectomy Social History Social History Type Response Alcohol Past Smoking Status Former smoker; Exposure to Tobacco Smoke None; Cigarette Smoking Last 365 Days No; Reg Smoking Cessation Counseling No Assessment and Plan No data available for this section
--- OUTSIDE RECORDS SUMMARY | 2018-03-01 08:06 | XMS REPORT | Summary of Care ---
Demographics Address [address] [place] [address] Preferred Language Unknown Marital Status Unknown Latter Day Affiliation Zoroastrianism Race Other Additional Race(s) Ethnic Group Non- Author Author [facility] Organization [facility] Address Unknown Phone Unavailable Encounter HQ Monet(FIN) [id number] Date(s): 07/04/17 - 07/04/17 [facility] [address] [facility], [address] [place] [address] [phone] Discharge Disposition: Home or Self Care Attending Physician: Sven Dove MD Vital Signs Most recent to 1 oldest [Reference Range]: Height 180.34 cm (07/04/17 2:13 PM) Blood Pressure 125/65 mmHg [90-140/60-90 mmHg] (07/04/17 2:13 PM) Peripheral Pulse 80 bpm Rate [60-100 bpm] (07/04/17 2:13 PM) Weight 75 kg (07/04/17 2:13 PM) Body Mass Index 23.06 m2 (07/04/17 2:13 PM) Problem List Condition Effective Dates Status Health [...]
--- OUTSIDE RECORDS SUMMARY | 2018-03-01 08:06 | XMS REPORT | Summary of Care ---
Author Author [facility] Organization [facility] Address Unknown Phone Unavailable Encounter HQ Chandanr_amor(FIN) [id number] Date(s): 09/20/17 - 09/20/17 [facility] [address], [address] [place] [address] [phone] Discharge Disposition: Home or Self Care Attending [...]
--- OUTSIDE RECORDS SUMMARY | 2018-03-01 08:06 | XMS REPORT | Summary of Care ---
Demographics Address [address] [place] [address]- Preferred Language Tajik Marital Status Single Christian Affiliation Scientologist Race Other Ethnic Group /Latin Author Author [facility] Organization [facility] Address Unknown Phone Unavailable Encounter BRENDA Healy(PEACE) [id number] Date(s): 09/15/16 - 09/22/16 [facility] [address] [place] [address]- [phone] Discharge Disposition: [facility] Attending Physician: Manuel Farley MD Admitting Physician: Manuel Farley MD Vital Signs 1 2 3 Most recent to oldest [Reference Range]: 170 cm (09/16/16 1:09 AM) 170.18 cm (09/15/16 7:24 PM) Height 79.864 kg (09/22/16 4:54 AM) 74.4 kg (09/17/16 8:02 AM) 71 kg (09/16/16 6:38 AM) Current Weight 98.3 DegF (09/22/16 4:02 PM) 98.9 DegF (09/22/16 12:28 PM) 98.1 DegF (09/22/16 8:17 AM) Temperature Oral [96.4-99.1 DegF] 107/66 mmHg (09/22/16 4:02 PM) 114/74 mmHg (09/22/16 12:28 PM) 127/74 mmHg (09/22/16 8:17 AM) Blood Pressure [90-140/60-90 mmHg] 18 BRMIN (09/22/16 4:02 PM) 18 BRMIN (09/22/16 12:28 PM) 18 BRMIN (09/22/16 8:17 AM) Respiratory Rate [14-20 BRMIN] 90 bpm (09/22/16 4:02 PM) 101 bpm *HI* (09/22/16 12:28 PM) 100 bpm (09/22/16 8:17 AM) Peripheral Pulse Rate [60-100 bpm] 71 kg (09/16/16 1:09 AM) 72.727 kg (09/15/16 7:24 PM) Weight 24.57 m2 (09/16/16 1:09 AM) 25.11 m2 (09/15/16 7:24 PM) Body Mass Index Problem List Condition Effective Dates Status Health Status Informant Anemia(Confirmed) Active Anxiety(Confirmed) Resolved Brain Resolved injury(Confirmed) Stroke(Confirmed) Active Diabetes(Confirmed) Resolved GERD Resolved (gastroesophageal reflux disease)(Confirmed) Hypotension(Confirme Active d) Allergies, Adverse Reactions, Alerts Substance Reaction Severity Status NKDA Active Medications acetaminophen 650 mg, PO, Q6H, PRN Pain 1-3/Temp > 100.4 F, 0 Refill(s) Start Date: 09/15/16 Status: Ordered acetaminophen-hydrocodone 325 mg-10 mg oral tablet 1 tab, Route: PO, Drug Form: TAB, Dosing Weight 71, kg, Q4H, PRN Pain Score 6-10 , Start date: 09/17/16 21:42:00 CDT, Duration: 30 day, Stop date: 10/17/16 21:41 :00 CDT Notes: Do not exceed 4gm/day of acetaminophen. (Same as: [place] 325/10) Start Date: 09/17/16 Stop Date: 09/22/16 Status: Discontinued acetaminophen-hydrocodone 325 mg-5 mg oral tablet 1 tab, Route: PO, Drug Form: TAB, Dosing Weight 71, kg, Q4H, PRN Pain Score 1-5, Start date: 09/17/16 21:42:00 CDT, Duration: 30 day, Stop date: 10/17/16 21:41: 00 CDT Notes: (Same as: [place] 325/5) Do not exceed 4gm/day of acetaminophen. Start Date: 09/17/16 Stop Date: 09/22/16 Status: Discontinued aspirin 300 mg, 1 supp, Route: NE, Drug form: SUPP, Q24H, Dosing Weight 72.727, kg, Star t date: 09/16/16 0:00:00 CDT, Duration: 30 day, Stop date: 10/15/16 0:00:00 CDT Notes: Refrigerate. Start Date: 09/16/16 Stop Date: 09/18/16 Status: Discontinued aspirin 81 mg, 1 tab, Route: PO, Drug form: ECTAB, Daily, Dosing Weight 71, kg, Priority : NOW, Start date: 09/18/16 9:17:00 CDT, Duration: 30 day, Stop date: 10/18/16 9 :00:00 CDT Notes: Do not crush or chew.(Same As: Ecotrin) Start Date: 09/18/16 Stop Date: 09/22/16 Status: Discontinued aspirin 81 mg, 1 tab, Route: PO, Drug form: ECTAB, ONCE, Dosing Weight 72.727, kg, Prior ity: STAT, Start date: 09/15/16 20:57:00 CDT, Stop date: 09/15/16 20:57:00 CDT Notes: Do not crush or chew.(Same As: Ecotrin) Start Date: 09/15/16 Stop Date: 09/15/16 Status: Completed aspirin 81 mg tablet, chewable 81 mg=1 tab, PO, Daily, 0 Refill(s) Start Date: 09/15/16 Status: Ordered baclofen 10 mg oral tablet 10 mg=1 tab, PO, TID, 0 Refill(s) Start Date: 09/15/16 Status: Ordered Bactrim DS 800 mg- 160 mg oral tablet 1 tab, PO, BID, drink plenty of fluids take w/ food, X 14 day, # 28 tab, 0 Refi ll(s) Start Date: 09/22/16 Stop Date: 09/22/16 Status: Discontinued Bactrim SS 400 mg-80 mg oral tablet 1 tab, PO, BID, X 14 day, # 28 tab, 0 Refill(s) Start Date: 09/22/16 Stop Date: 10/06/16 Status: Ordered bisacodyl 10 mg rectal suppository 10 mg=1 supp, NE, Daily, 0 Refill(s) Start Date: 09/15/16 Status: Ordered calcium carbonate 500 mg (200 mg elemental calcium) oral tablet 500 mg, 1 tab, Route: PO, Drug form: CHEWTAB, PRN, Dosing Weight 71, kg, PRN Abn ormal Lab Result, FOR ICU USE ONLY, Start date: 09/17/16 8:43:00 CDT, Duration: 30 day, Stop date: 10/17/16 8:42:00 CDT Notes: (Same As: Tums)Calcium Carbonate 500 hm=579 mg elemental calcium Dose=_ mg calcium carbonate ( mg elemental calcium) Start Date: 09/17/16 Stop Date: 09/18/16 Status: Discontinued calcium carbonate 500 mg (200 mg elemental calcium) oral tablet 1,000 mg, 2 tab, Route: PO, Drug form: CHEWTAB, PRN, Dosing Weight 71, kg, PRN A bnormal Lab Result, FOR ICU USE ONLY, Start date: 09/17/16 8:43:00 CDT, Duration : 30 day, Stop date: 10/17/16 8:42:00 CDT Notes: (Same As: Tums)Calcium Carbonate 500 bb=446 mg elemental calcium Dose=_ mg calcium carbonate ( mg elemental calcium) Start Date: 09/17/16 Stop Date: 09/18/16 Status: Discontinued calcium gluconate 1 gm, 50 mL, Route: IVPB, Drug form: INJ, PRN, Dosing Weight 71, kg, PRN Abnorma l Lab Result, Start date: 09/17/16 8:43:00 CDT, Duration: 30 day, Stop date: 07/31 8:42:00 CDT, FOR ICU USE ONLY Notes: WASTE: F/P - Sink; E - Municipal Trash Bin Start Date: 09/17/16 Stop Date: 09/18/16 Status: Discontinued cefepime + sodium chloride 0.9% INJ 100 mL 1 gm, Route: IVPB, [id number], Dosing Weight 72.727, kg, (CrCl 10 - 29 ml/min), Sta rt date: 09/16/16 22:00:00 CDT, Duration: 10 day, Stop date: 09/25/16 22:00:00 C DT, ABX Indication: Genital Tract Infection Notes: (Same As: Maxipime) MEDICATION WASTE Product Size: 1000 mgProduc t Wasted: ___ mg Start Date: 09/16/16 Stop Date: 09/18/16 Status: Discontinued cefepime + sodium chloride 0.9% INJ 100 mL 1 gm, Route: IVPB, ONCE, Dosing Weight 72.727, kg, Priority: STAT, Start date: 0 09/15/16 20:57:00 CDT, Duration: 1 doses or times, Stop date: 09/15/16 20:57:00 C DT, ABX Indication: Urinary Tract Infection Notes: (Same As: Maxipime) MEDICATION WASTE Product Size: 1000 mgProduc t Wasted: ___ mg Start Date: 09/15/16 Stop Date: 09/15/16 Status: Completed cefTRIAXone 1 gm, Route: IVPB, Drug form: PDR/INJ, [id number], Dosing Weight 71, kg, Start date : 09/18/16 10:00:00 CDT, Duration: 8 day, Stop date: 09/25/16 10:00:00 CDT, ABX Indication: Urinary Tract Infection Start Date: 09/18/16 Stop Date: 09/18/16 Status: Canceled cefTRIAXone + sodium chloride 0.9% INJ 100 mL 1 gm, Route: IVPB, [id number], Dosing Weight 71, kg, Start date: 09/18/16 10:00:00 CDT, Duration: 8 day, Stop date: 09/25/16 10:00:00 CDT, ABX Indication: Urinary Tract Infection Notes: (Same As: Rocephin).Use with 100 mL NS and infuse over 30 min MEDICA TION WASTE Product Size: 1000 mgProduct Wasted: ___ mg Start Date: 09/18/16 Stop Date: 09/22/16 Status: Discontinued citalopram 20 mg oral tablet 20 mg=1 tab, PO, Bedtime, 0 Refill(s) Start Date: 09/15/16 Status: Ordered Colace 100 mg oral capsule 100 mg, 1 cap, Route: PO, Drug form: CAP, BID, Dosing Weight 71, kg, Start date: 09/20/16 9:00:00 CDT, Duration: 30 day, Stop date: 10/19/16 17:00:00 CDT Notes: (Same as: Colace) (Do Not Crush) Start Date: 09/20/16 Stop Date: 09/22/16 Status: Discontinued Diflucan 150 mg oral tablet 150 mg=1 tab, PO, Daily, 0 Refill(s) Start Date: 09/14/16 Stop Date: 09/19/16 Status: Ordered famotidine 20 mg, 1 tab, Route: PO, Drug form: TAB, Q12H, Dosing Weight 71, kg, Start date: 09/18/16 9:00:00 CDT, Duration: 30 day, Stop date: 10/17/16 21:00:00 CDT Notes: (Same as: Pepcid) Start Date: 09/18/16 Stop Date: 09/18/16 Status: Discontinued fentaNYL 50 microgram, Route: IV, ONCE, Dosing Weight 72.727, kg, Start date: 09/15/16 22 :45:00 CDT, Stop date: 09/15/16 22:45:00 CDT Start Date: 09/15/16 Stop Date: 09/15/16 Status: Completed GoLYTELY 4,000 ml, Route: PO, Drug Form: PDR/REC, Dosing Weight 71, kg, ONCE, Start date: 09/19/16 13:10:00 CDT, Duration: 1 doses or times, Stop date: 09/19/16 13:10:00 CDT Notes: (polyethylene glycol electrolyte solution 4 Liter bottle) (Same as: Bull Kee) Start Date: 09/19/16 Stop Date: 09/19/16 Status: Completed GoLYTELY 4,000 ml, Route: PO, Drug Form: PDR/REC, Dosing Weight 71, kg, ONCE, Start date: 09/20/16 15:00:00 CDT, Duration: 1 doses or times, Stop date: 09/20/16 15:00:00 CDT Notes: (polyethylene glycol electrolyte solution 4 Liter bottle) (Same as: Col Vidhyayte) Start Date: 09/20/16 Stop Date: 09/20/16 Status: Completed Humalog 100 units/mL - (Medium CD) See Special Instructions, SUB-Q, TID-Before Meals, Check blood sugar before bryson kfast, lunch, and dinner, and inject correction doses: Inject 2 unit if Sugar 15 0-199, Inject 4 units if Sugar 200-249, Inject 6 units if Sugar 250-299, Inject 8 units if... Start Date: 09/15/16 Status: Ordered Keflex 500 mg, Route: PO, Drug form: CAP, [id number], Dosing Weight 71, kg, Start date: 10:00:00 CDT, Duration: 8 day, Stop date: 09/25/16 22:00:00 CDT Start Date: 09/18/16 Stop Date: 09/18/16 Status: Canceled Lipitor 10 mg, 1 tab, Route: PO, Drug form: TAB, Bedtime, Dosing Weight 71, kg, Start da te: 09/18/16 21:00:00 CDT, Duration: 30 day, Stop date: 10/17/16 21:00:00 CDT Notes: (Same As: Lipitor) Start Date: 09/18/16 Stop Date: 09/22/16 Status: Discontinued Lipitor 10 mg oral tablet 10 mg=1 tab, PO, Bedtime, 0 Refill(s) Start Date: 09/15/16 Status: Ordered lisinopril 5 mg oral tablet 5 mg=1 tab, PO, Daily, 0 Refill(s) Start Date: 09/15/16 Status: Ordered Lovenox 40 mg, 0.4 mL, Route: SUB-Q, Drug form: INJ, [id number], Dosing Weight 71, kg, Sta rt date: 09/19/16 12:00:00 CDT, Duration: 30 day, Stop date: 10/18/16 12:00:00 C DT Notes: (Same as: Lovenox) Start Date: 09/19/16 Stop Date: 09/22/16 Status: Discontinued magnesium oxide 800 mg, 2 tab, Route: PO, Drug form: TAB, PRN, Dosing Weight 71, kg, PRN Abnorma l Lab Result, FOR ICU USE ONLY, Start date: 09/17/16 8:43:00 CDT, Duration: 30 d ay, Stop date: 10/17/16 8:42:00 CDT Notes: (Same as: Mag-Ox 400)Magnesium oxide [id number] elemental magnesiumDose= ____mg magnesium oxide (___mg elemental magnesium) Start Date: 09/17/16 Stop Date: 09/18/16 Status: Discontinued magnesium sulfate 1 gm, 100 mL, Route: IVPB, Drug form: INJ, Q1H, Start date: 09/19/16 11:00:00 CD T, Duration: 3 doses or times, Stop date: 09/19/16 13:00:00 CDT Notes: WASTE: F/P - Sink; E - Municipal Trash Bin Start Date: 09/19/16 Stop Date: 09/19/16 Status: Completed magnesium sulfate 2 gm, 50 mL, Route: IVPB, Drug form: INJ, PRN, Dosing Weight 71, kg, PRN Abnorma l Lab Result, Start date: 09/17/16 8:43:00 CDT, Duration: 30 day, Stop date: 07/31 8:42:00 CDT, FOR ICU USE ONLY Notes: WASTE: F/P - Sink; E - Municipal Trash Bin Start Date: 09/17/16 Stop Date: 09/18/16 Status: Discontinued magnesium sulfate 2 gm in Water 50 ml 2 gm, 50 mL, Route: IVPB, Drug form: INJ, ONCE, Dosing Weight 71, kg, Start date : 09/20/16 5:32:00 CDT, Stop date: 09/20/16 5:32:00 CDT Notes: WASTE: F/P - Sink; E - Municipal Trash Bin Start Date: 09/20/16 Stop Date: 09/20/16 Status: Completed magnesium sulfate 2 gm in Water 50 ml 3 gm, Route: IV, ONCE, Dosing Weight 71, kg, Start date: 09/19/16 8:55:00 CDT, S top date: 09/19/16 8:55:00 CDT Start Date: 09/19/16 Stop Date: 09/19/16 Status: Deleted magnesium sulfate 2 gm in Water 50 ml + sodium chloride 0.9% INJ 100 mL 3 gm, 6 mL, Route: IV, ONCE, Dosing Weight 71, kg, Start date: 09/22/16 5:20:00 CDT, Stop date: 09/22/16 5:20:00 CDT Notes: (Same as: MgSO4)WASTE: F/P - Sink; E - Municipal Trash Bin MEDICATIO N WASTE Product Size: 1000 mgProduct Wasted: ___ mg Start Date: 09/22/16 Stop Date: 09/22/16 Status: Completed magnesium sulfate 2gm / NS 50ml (premixed) 2 gm, Route: IVPB, Drug form: INJ, ONCE, Dosing Weight 71, kg, Start date: 09/19 11:29:00 CDT, Duration: 2 hr, Stop date: 09/19/16 11:29:00 CDT Start Date: 09/19/16 Stop Date: 09/19/16 Status: Discontinued metFORMIN 500 mg oral tablet 500 mg=1 tab, PO, BID, 0 Refill(s) Start Date: 09/15/16 Status: Ordered miconazole 4%-2% vaginal cream 1 appl, VAG, Bedtime, 0 Refill(s) Start Date: 09/14/16 Stop Date: 09/17/16 Status: Ordered morphine Sulfate 2 mg, 1 mL, Route: IVP, Drug form: INJ, Q3H, Dosing Weight 71, kg, PRN Pain Scor e 7-10, Start date: 09/17/16 21:42:00 CDT, Duration: 30 day, Stop date: 10/17/16 21:41:00 CDT, pain score 1-3 if po pain meds fail or pt not tolerating po Notes: (Same as:MORPhine Sulfate) Start Date: 09/17/16 Stop Date: 09/22/16 Status: Discontinued norepinephrine 4 mg/4 ml inj 8 mg + D5W 242 mL 8 mg, 8 mL, Rate: Titrate, Start Dose: 0.1 microgram/kg/min, Titration: 0.05 pradeep rogram/kg/min every 2 - 5 minutes, Goal(s): MAP >=65 mmHg, Max Dose: 1 microgram/kg/min, Route: IV, Dosing Weight 72.727 kg, Total Volume: 250, Start date: 09/15/16 21:52... Notes: Not for direct administration - DILUTE. Protect from light. (Same as:Levo phed). Administer by either central venous catheter or peripherally-inserted jason tral catheter (PICC) line. Start Date: 09/15/16 Stop Date: 09/18/16 Status: Discontinued NS (Bolus) IV 1,000 mL, 1,000 ml/hr, Infuse Over: 1 hr, Route: IV, 1,000, Drug form: INJ, ONCE , Priority: STAT, Dosing Weight 72.727 kg, Start date: 09/15/16 21:39:00 CDT, Du ration: 1 doses or times, Stop date: 09/15/16 21:39:00 CDT Start Date: 09/15/16 Stop Date: 09/15/16 Status: Completed NS (Bolus) IV 500 mL, 500 ml/hr, Infuse Over: 1 hr, Route: IV, 500, Drug form: INJ, ONCE, Prio rity: STAT, Dosing Weight 72.727 kg, Start date: 09/15/16 20:48:00 CDT, Duration : 1 doses or times, Stop date: 09/15/16 20:48:00 CDT Start Date: 09/15/16 Stop Date: 09/15/16 Status: Completed NS (Bolus) IV 500 mL, 500 ml/hr, Infuse Over: 1 hr, Route: IV, 500, Drug form: INJ, ONCE, Prio rity: STAT, Dosing Weight 72.727 kg, Start date: 09/15/16 21:11:00 CDT, Duration : 1 doses or times, Stop date: 09/15/16 21:11:00 CDT Start Date: 09/15/16 Stop Date: 09/15/16 Status: Completed nystatin topical 100,000 units/g powder 1 appl, Route: TOP, PRN, Drug form: PWDR, PRN For Fungal Prophylaxis, Start date : 09/15/16 23:37:00 CDT, Duration: 30 day, Stop date: 10/15/16 23:36:00 CDT Notes: (Same as:Mycostatin, Nilstat) For external use only. Start Date: 09/15/16 Stop Date: 09/22/16 Status: Discontinued ondansetron 4 mg, 2 mL, Route: IVP, Drug form: INJ, Q6H, Dosing Weight 71, kg, PRN Nausea & Vomiting, Start date: 09/17/16 21:42:00 CDT, Duration: 30 day, Stop date: 10/17 21:41:00 CDT Notes: (Same as: Zofran) MEDICATION WASTE Product Size: 4 mgProduct Was kin: ___ mg Start Date: 09/17/16 Stop Date: 09/22/16 Status: Discontinued pantoprazole 80 mg, Route: IVP, Drug form: INJ, ONCE, Dosing Weight 72.727, kg, Priority: STA T, Start date: 09/15/16 19:57:00 CDT, Stop date: 09/15/16 19:57:00 CDT Notes: For IV push reconstitute with 10 ml 0.9% sodium chloride and push over 2 minutes. (Same as: Protonix) Start Date: 09/15/16 Stop Date: 09/15/16 Status: Completed pantoprazole 40 mg, 1 tab, Route: PO, Drug form: ECTAB, Before Dinner, Dosing Weight 71, kg, Start date: 09/18/16 16:30:00 CDT, Duration: 30 day, Stop date: 10/17/16 16:30:0 0 CDT Notes: Tablet should not be chewed or crushed.(Same as: Protonix) Start Date: 09/18/16 Stop Date: 09/22/16 Status: Discontinued pantoprazole 40 mg oral enteric coated tablet 40 mg=1 tab, PO, Daily, 0 Refill(s) Start Date: 09/15/16 Status: Ordered pantoprazole 80 mg + sodium chloride 0.9% INJ 100 mL 100 mL, Rate: 10 ml/hr, Infuse over: 10 hr, Route: IV, Dosing Weight 72.727 kg, Total Volume: 100, Start date: 09/15/16 19:57:00 CDT, Duration: 72 hr, Stop date : 09/18/16 19:56:00 CDT Start Date: 09/15/16 Stop Date: 09/18/16 Status: Discontinued potassium chloride 20 mEq, 100 mL, Route: IVPB, Drug form: INJ, Q2H, Dosing Weight 71, kg, Total do se=40 mEq, Start date: 09/22/16 6:00:00 CDT, Duration: 2 doses or times, Stop da te: 09/22/16 8:00:00 CDT Notes: (Same as: KCL) Infuse no faster than 10 mEq/hr if given peripherally. Start Date: 09/22/16 Stop Date: 09/22/16 Status: Completed potassium chloride 20 mEq, 100 mL, Route: IVPB, Drug form: INJ, Q2H, Dosing Weight 71, kg, Total do se=40 mEq, Start date: 09/21/16 8:00:00 CDT, Duration: 2 doses or times, Stop da te: 09/21/16 10:00:00 CDT Notes: (Same as: KCL) Infuse no faster than 10 mEq/hr if given peripherally. Start Date: 09/21/16 Stop Date: 09/21/16 Status: Completed potassium chloride 20 mEq, 15 mL, Route: NJ, Drug form: LIQ, PRN, Dosing Weight 71, kg, PRN Abnorma l Lab Result, Start date: 09/17/16 8:43:00 CDT, Duration: 30 day, Stop date: 07/31 8:42:00 CDT, FOR ICU USE ONLY Notes: (Same as: Potassium Chloride) Start Date: 09/17/16 Stop Date: 09/18/16 Status: Discontinued potassium chloride 20 mEq, 1 tab, Route: PO, Drug form: ERTAB, PRN, Dosing Weight 71, kg, PRN Abnor mal Lab Result, Start date: 09/17/16 8:43:00 CDT, Duration: 30 day, Stop date: 0 10/17/16 8:42:00 CDT, FOR ICU USE ONLY Notes: (Same as: K-Dur 20)"Do Not Crush" With food and full glass of water Start Date: 09/17/16 Stop Date: 09/18/16 Status: Discontinued potassium chloride 20 mEq, 100 mL, Route: IVPB, Drug form: INJ, PRN, Dosing Weight 71, kg, PRN Abno rmal Lab Result, Via central line, Start date: 09/17/16 8:43:00 CDT, Duration: 3 0 day, Stop date: 10/17/16 8:42:00 CDT, FOR ICU USE ONLY Notes: (Same as: KCL) Infuse no faster than 10 mEq/hr if given peripherally. Start Date: 09/17/16 Stop Date: 09/18/16 Status: Discontinued potassium chloride 10 mEq, 100 mL, Route: IVPB, Drug form: INJ, PRN, Dosing Weight 71, kg, PRN Abno rmal Lab Result, Via peripheral line, Start date: 09/17/16 8:43:00 CDT, Duration : 30 day, Stop date: 10/17/16 8:42:00 CDT, FOR ICU USE ONLY Notes: Infuse at a rate of 10 mEq/hr.(Same as: KCL) Start Date: 09/17/16 Stop Date: 09/18/16 Status: Discontinued potassium chloride 20 mEq oral tablet, extended release 40 mEq, 2 tab, Route: PO, Drug form: ERTAB, ONCE, Dosing Weight 71, kg, Start da te: 09/19/16 8:55:00 CDT, Stop date: 09/19/16 8:55:00 CDT Start Date: 09/19/16 Stop Date: 09/19/16 Status: Completed potassium phosphate + sodium chloride 0.9% INJ 250 mL 45 mmol, 15 mL, Route: IVPB, PRN, Dosing Weight 71, kg, PRN Abnormal Lab Result, Start date: 09/17/16 8:43:00 CDT, Duration: 30 day, Stop date: 10/17/16 8:42:00 CDT, FOR ICU USE ONLY Notes: (Same as: K Phosphate.) 1 mMol phoshate has 1.47 mEq potassium Infuse o irma 4 hours Start Date: 09/17/16 Stop Date: 09/18/16 Status: Discontinued potassium phosphate + sodium chloride 0.9% INJ 250 mL 15 mmol, 5 mL, Route: IVPB, PRN, Dosing Weight 71, kg, PRN Abnormal Lab Result, Start date: 09/17/16 8:43:00 CDT, Duration: 30 day, Stop date: 10/17/16 8:42:00 CDT, FOR ICU USE ONLY Notes: (Same as: K Phosphate.) 1 mMol phoshate has 1.47 mEq potassium Infuse o irma 4 hours Start Date: 09/17/16 Stop Date: 09/18/16 Status: Discontinued potassium phosphate + sodium chloride 0.9% INJ 250 mL 30 mmol, 10 mL, Route: IVPB, PRN, Dosing Weight 71, kg, PRN Abnormal Lab Result, Start date: 09/17/16 8:43:00 CDT, Duration: 30 day, Stop date: 10/17/16 8:42:00 CDT, FOR ICU USE ONLY Notes: (Same as: K Phosphate.) 1 mMol phoshate has 1.47 mEq potassium Infuse o irma 4 hours Start Date: 09/17/16 Stop Date: 09/18/16 Status: Discontinued potassium phosphate-sodium phosphate 250 mg-280 mg-160 mg oral powder for recons titution 2 pkt, Route: PO, Drug Form: PDR/REC, Dosing Weight 71, kg, PRN, PRN Abnormal La b Result, FOR ICU USE ONLY, Start date: 09/17/16 8:43:00 CDT, Duration: 30 day, Stop date: 10/17/16 8:42:00 CDT Notes: (Same as: Phos-NaK) Each 1.5 gm pkt has 250mg phosphorous. Mix w/2.5oz w ater and stir. Start Date: 09/17/16 Stop Date: 09/18/16 Status: Discontinued Restoril 15 mg, 1 cap, Route: PO, Drug form: CAP, Bedtime, Dosing Weight 71, kg, PRN Slee p, Start date: 09/18/16 16:24:00 CDT, Duration: 30 day, Stop date: 10/18/16 16:2 3:00 CDT Notes: (Same As: Restoril) Start Date: 09/18/16 Stop Date: 09/22/16 Status: Discontinued Restoril 15 mg oral capsule 15 mg=1 cap, PO, Bedtime, PRN as needed for sleep, 0 Refill(s) Start Date: 09/15/16 Status: Ordered Saline Flush 0.9% 10 mL, Route: IVP, Drug Form: INJ, Dosing Weight 72.727, kg, PRN, PRN Line Flush , Start date: 09/15/16 19:57:00 CDT, Duration: 30 day, Stop date: 10/15/16 19:56 :00 CDT Notes: (Same as: BD Posiflush) Start Date: 09/15/16 Stop Date: 09/22/16 Status: Discontinued Saline Flush 0.9% 10 ml, Route: IVP, Drug Form: INJ, Dosing Weight 72.727, kg, Q12H, Start date: 0 09/16/16 9:00:00 CDT, Duration: 30 day, Stop date: 10/15/16 21:00:00 CDT Notes: (Same as: BD Posiflush) Start Date: 09/16/16 Stop Date: 09/22/16 Status: Discontinued Saline Flush 0.9% 10 ml, Route: IVP, Drug Form: INJ, Dosing Weight 72.727, kg, PRN, PRN Line Flush , Start date: 09/15/16 23:37:00 CDT, Duration: 30 day, Stop date: 10/15/16 23:36 :00 CDT Notes: (Same as: BD Posiflush) Start Date: 09/15/16 Stop Date: 09/22/16 Status: Discontinued Senna 8.6 mg oral tablet 17.2 mg=2 tab, PO, BID, PRN as needed for constipation, 0 Refill(s) Start Date: 09/15/16 Status: Ordered sodium bicarbonate 8.4% additive 150 mEq + D5W 1,000 mL 1,000 mL, Rate: 150 ml/hr, Infuse over: 7.7 hr, Route: IV, Dosing Weight 72.727 kg, Total Volume: 1,150, Priority: STAT, Start date: 09/15/16 22:52:00 CDT, Dura tion: 30 day, Stop date: 10/15/16 22:51:00 CDT Notes: (sodium bicarb 8.4% (1 mEq/ml) 50 ml VL) Start Date: 09/15/16 Stop Date: 09/18/16 Status: Discontinued Sodium Chloride 0.9% (Bolus) IV 1,000 mL, 1000 ml/hr, Infuse Over: 1 hr, Route: IV, 1,000, Drug form: INJ, ONCE, Priority: STAT, Dosing Weight 72.727 kg, Start date: 09/15/16 19:57:00 CDT, Dur ation: 1 doses or times, Stop date: 09/15/16 19:57:00 CDT Start Date: 09/15/16 Stop Date: 09/15/16 Status: Completed sodium chloride 0.9% 1000 ml INJ 1,000 mL 1,000 mL, Rate: 25 ml/hr, Infuse over: 40 hr, Route: IV, Dosing Weight 71 kg, To jimmie Volume: 1,000, Start date: 09/21/16 7:45:00 CDT, Duration: 30 day, Stop date : 10/21/16 7:44:00 CDT Start Date: 09/21/16 Stop Date: 09/21/16 Status: Discontinued sodium chloride 0.9% 1000 ml INJ 1,000 mL 1,000 mL, Rate: 70 ml/hr, Infuse over: 14.3 hr, Route: IV, Dosing Weight 71 kg, Total Volume: 1,000, Start date: 09/18/16 9:23:00 CDT, Stop date: 10/18/16 9:22: 00 CDT Start Date: 09/18/16 Stop Date: 09/21/16 Status: Voided With Results sodium chloride 0.9% INJ 250 mL 250 mL, Rate: Manuscript Reader for use with blood product administration., Dosing Weight 72.727, kg, Route: IV, Total Volume: 250, Priority: Routine, Start Date: 7 19:59:00 CDT, Duration: 1 day, Stop date: 09/16/16 19:58:00 CDT, Replace Every : 24 hr Start Date: 09/15/16 Stop Date: 09/16/16 Status: Completed sodium phosphate + D5W 250 mL 30 mmol, 10 mL, Route: IVPB, PRN, Dosing Weight 71, kg, PRN Abnormal Lab Result, Start date: 09/17/16 8:43:00 CDT, Duration: 30 day, Stop date: 10/17/16 8:42:00 CDT, FOR ICU USE ONLY Start Date: 09/17/16 Stop Date: 09/18/16 Status: Discontinued sodium phosphate + D5W 250 mL 45 mmol, 15 mL, Route: IVPB, PRN, Dosing Weight 71, kg, PRN Abnormal Lab Result, Start date: 09/17/16 8:43:00 CDT, Duration: 30 day, Stop date: 10/17/16 8:42:00 CDT, FOR ICU USE ONLY Start Date: 09/17/16 Stop Date: 09/18/16 Status: Discontinued sodium phosphate + D5W 250 mL 15 mmol, 5 mL, Route: IVPB, PRN, Dosing Weight 71, kg, PRN Abnormal Lab Result, Start date: 09/17/16 8:43:00 CDT, Duration: 30 day, Stop date: 10/17/16 8:42:00 CDT, FOR ICU USE ONLY Start Date: 09/17/16 Stop Date: 09/18/16 Status: Discontinued Tylenol with Codeine #3 oral tablet 2 tab, PO, Q6H, PRN Pain Score 4-6, 0 Refill(s) Start Date: 09/15/16 Status: Ordered Zofran 4 mg, 2 mL, Route: IVP, Drug form: INJ, Q8H, Dosing Weight 71, kg, PRN Nausea, S tart date: 09/16/16 18:17:00 CDT, Duration: 30 day, Stop date: 10/16/16 18:16:00 CDT Notes: (Same as: Zofran) MEDICATION WASTE Product Size: 4 mgProduct Was kin: ___ mg Start Date: 09/16/16 Stop Date: 09/17/16 Status: Voided With Results Zofran 4 mg oral tablet 4 mg=1 tab, PO, Q6H, PRN Nausea & Vomiting, 0 Refill(s) Start Date: 09/15/16 Status: Ordered Results BLOOD BANK RESULTS 1 2 3 Most recent to oldest [Reference Range]: B POS *Unknown* (09/15/16 8:12 PM) ABO/Rh Negative (09/15/16 8:12 PM) Antibody Scrn Product available (09/15/16 10:59 PM) Product available 1 (09/15/16 7:59 PM) RBC product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 09/15 21:30----[id number]--- 09/15 21:00----[id number]--- 09/15 20:59----[id number]--- 24 Hr Tmax: 98.6F (37.00c) at 09/15 19:39Vital Signs are the last 5 in the past 48 hours. Gen: mild dstress HEENT: protecting airway Neuro:lethargy Cardio: [id number] Pulm: LCTAB Abd: nonspecific TTP : gold with very cloudy urine Ext: contracture RUE 24hr Labs 09/15 2153 Lactic Acid Lvl0.6 09/15 2056 Occult Bld StlPositive UA ColorGreen UA TurbidityMarked UA Spec Grav1.014 UA pH7.0 UA Mabqhnj185 UA GlucoseNegative UA KetonesTrace UA BiliNegative UA BloodModerate UA Urobilinogen<=1.0 UA NitritePositive UA Leuk EstSmall UA RBC32 H UA AGU957 H UA BacteriaFew UA Sq EpiOccasional 09/16 2011 ABO/RhB POS Antibody ScrnNegative XM EXM InterpCompatible XM EXM InterpCompatible Sodium Wdg514 L Potassium Lvl5.5 H Chloride Lvl97 CO216 L AGAP21.5 H Glucose Lvl95 Creatinine Lvl2.50 H BUN64 H B/C Ratio26 H Total Protein7.1 Albumin Lvl2.3 L Globulin4.8 H A/G Ratio0.5 L Calcium Lvl8.9 ALT31 AST34 Alk Lzvm167 Bili Total0.5 eGFR21 Lipase Gma183 Troponin-I0.48 H WBC14.2 H RBC2.82 L Hgb7.4 L Hct22.1 L MCV78.6 L MCH26.2 L MCHC33.3 RDW16.6 H Kihyfgtx741 MPV7.1 L Segs84.3 H Monocytes7.0 Lymphocytes7.3 L Eosinophils1.1 Basophils0.3 Segs-Bands #11.9 H Lymphocytes #1.0 Monocytes #1.0 H Eosinophils #0.2 Microcyte1+ PT17.0 H INR1.36 H PTT36.7 H 09/15 1958 RBC productProduct available Impression 1. Septic shock 2. UTI 3. Metabolic encephalopathy 4. Trop release probably type 2 NSTEMI 5. LILI with hyperkalemia 6. Anemia with + FOB 7. Acidosis Plan - ICU care - start bicarb gtt - pressors to maintain MAP>=65mmHg - panculture and start braod spectrum abx - ASA NE, serial trop, echo - PPI gtt - transfuse 2 units PRBCs - propylactic measures CCM time exclusive of procedures is 42 min
--- OUTSIDE RECORDS SUMMARY | 2018-03-01 08:06 | XMS REPORT | Summary of Care ---
Author Author [facility] Organization [facility] Address Unknown Phone Unavailable Encounter HQ Chandanr_amor(FIN) [id number] Date(s): 09/20/17 - 09/20/17 [facility] U[facility] [address], [address] [place] [address] [phone] Discharge Disposition: Home or Self Care Attending [...]
--- OUTSIDE RECORDS SUMMARY | 2018-03-01 08:06 | XMS REPORT | Summary of Care ---
Author Author [facility] Organization [facility] U[facility] Address Unknown Phone Unavailable Encounter HQ Monet(FIN) [id number] Date(s): 09/20/17 - 09/20/17 [facility] [address] [facility] [address], [address] [place] [phone] Discharge Disposition: Home or Self Care Attending [...] Substance Reaction Severity Status NKDA Active Medications Rocephin 1,000 mg, Route: IM, ONCE, Dosing Weight 75, kg, Start date: 09/20/17 13:50:00 C DT, Stop date: 09/20/17 13:50:00 CDT Start Date: 09/20/17 Stop Date: 09/20/17 Status: Completed Results No data available for this section [...]
--- OUTSIDE RECORDS SUMMARY | 2018-03-01 08:06 | XMS REPORT | Summary of Care ---
Author Author [facility] Urology [facility] Organization [facility] Urology [facility] Address Unknown Phone Unavailable Encounter HQ Chandanr_amor(FIN) [id number] Date(s): 08/09/17 - 08/09/17 [facility] Urology [facility] [address], [address] [place] [address] [phone] Discharge Disposition: Home or Self Care Attending [...]
--- OUTSIDE RECORDS SUMMARY | 2018-03-01 08:06 | XMS REPORT | Summary of Care ---
Author Author [facility] Unknown Address [facility] Phone Unavailable Care Team Providers Care Board Worker Name Role Phone RAMYA GARCÍA M.D. Unavailable Unavailable DIANELYS TRAMMELL MD Unavailable Unavailable Unavailable Unavailable Functional Status Name Dates Details Functional status health issues are not documented Status: Name Dates Details Cognitive status health issues are not documented Status: Problems Name Dates Details Peripheral vascular disease (443.9, I73.9) Status: Active Extremity pain (729.5, M79.609) Status: Active Peripheral vascular disease (443.9, I73.9) Status: Active Medications Name Dates Details Insulin Purified Lente (Pork) 100 U/ML SUSP Active MetFORMIN HCl - 500 MG Oral Tablet * Refills: 0 Active Pravastatin Sodium 40 MG Oral Tablet * Refills: 0 Active Lisinopril 10 MG Oral Tablet * Refills: 0 Active Gabapentin 800 MG Tab (OR) - 61186_Deactivated * Refills: 0 Active Tricor 48 MG Oral Tablet * Refills: 0 Active Citalopram Hydrobromide 20 MG Oral Tablet * Refills: 0 Active Allergies and Adverse Reactions Name Dates Details No Known Drug Allergies (Allergy) Status: Active Past Medical History Name Dates Details History of Diabetes mellitus (250.00, E11.9) Status: Resolved 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 History of hyperlipidemia (V12.29, Z86.39) Status: Resolved History of Stroke syndrome Status: Resolved Past myocardial infarction (412, I25.2) Status: Resolved Procedures Procedure Dates Details History of Hysterectomy Completed History of Tonsillectomy Completed Immunization Name Dates Details Immunizations not documented Social History Name Dates Details - Status: Name Dates Details Current every day smoker Vital Signs Date Test Result Details No Known Vitals to report Results Date Description Value Details Results not documented Plan of Care Name Dates Details Planned Observations Planned Goals not documented Planned Encounters Appointment; RAMYA GARCÍA M.D. On: 19-Feb-2018 9:30 Interventions Provided Instructions* Patient Specific Education Given; Done: 19 Feb 2018 Plan* I evaluated Ms. Thompson today for Instructions Name Dates Details Instructions not documented Encounters Appointment; ASKENASY, RADHA Encounter Diagnosis: Problem not documented On: 19-Sep-2016 17:00 Appointment; ASKENASY, RADHA Encounter Diagnosis: Problem not documented On: 20-Sep-2016 14:30 Appointment; ASKENASY, RADHA Encounter Diagnosis: Problem not documented On: 21-Sep-2016 16:45 Appointment; ASKENASY, RADHA Encounter Diagnosis: Problem not documented On: 24-Oct-2016 10:45 Appointment; ASKENASY, RADHA Encounter Diagnosis: Problem not documented On: 28-Nov-2016 10:15 Appointment; ASKENASY, RADHA Encounter Diagnosis: Problem not documented On: 24-Jan-2017 8:30 Appointment; RAMYA GARCÍA M.D. Encounter Diagnosis: Problem not documented On: 19-Feb-2018 9:30
--- OUTSIDE RECORDS SUMMARY | 2018-03-01 08:06 | XMS REPORT | Summary of Care ---
Author Author [facility] Urology [facility] Organization [facility] Urology [facility] Address Unknown Phone Unavailable Encounter HQ Maximo_amor(FIN) [id number] Date(s): 08/09/17 - 08/09/17 [facility] Urology [facility] [address], [address] [place] [address] [phone] Discharge Disposition: Home or Self Care Attending [...]
--- OUTSIDE RECORDS SUMMARY | 2018-03-01 08:06 | XMS REPORT | Summary of Care ---
Author Author [facility] Organization [facility] Address Unknown Phone Unavailable Encounter BRENDA Healy(PEACE) [id number] Date(s): 11/08/16 - 11/08/16 [facility] [address] [place] [address]- Discharge Disposition: Home or Self Care Attending Physician: Naresh Barksdale MD Referring Physician: Naresh Barksdale MD Vital Signs No data available for this section Problem List Condition Effective Dates Status Health Status Informant Anemia(Confirmed) Active Anxiety(Confirmed) Resolved Brain Resolved injury(Confirmed) Stroke(Confirmed) Active Diabetes(Confirmed) Resolved GERD Resolved (gastroesophageal reflux disease)(Confirmed) Hypotension(Confirme Active d) Allergies, Adverse Reactions, Alerts Substance Reaction Severity Status NKDA Active Medications Omnipaque 300 100 mL, Route: IV, Drug Form: SOLN, ONCE, Start date: 11/08/16 9:28:00 CDT, Stop date: 11/08/16 9:28:00 CDT Notes: (Same as:Omnipaque 300).WASTE: F/P - Black; E - Municipal Trash Bin Start Date: 11/08/16 Stop Date: 11/08/16 Status: Completed Results CHEM PANEL Most recent to 1 oldest [Reference Range]: eGFR 103 mL/min/1.73m2 1 *NA* (11/08/16 8:56 AM) POC Creatinine 0.6 mg/dL [0.5-1.4 mg/dL] (11/08/16 8:56 AM) 1Result Comment: The eGFR is calculated [...] be mul tiplied by the estimated BMI. Immunizations No data available for this section Procedures No data available for this section Social History Social History Type Response Smoking Status Never smoker; Exposure to Tobacco Smoke None; Cigarette Smoking Last 365 Days No; Reg Smoking Cessation Counseling No Assessment and Plan No data available for this section
[2018-03-01] MEDS ORDERED: METOPROLOL TARTRATE INJ 1 MG/ML VIAL ONE (08:36)
[2018-03-01] MEDS ORDERED: ONDANSETRON HCL INJ 2 MG/ML VIAL ONE ×2 (08:38→17:22)
[2018-03-01] MEDS ORDERED: MORPHINE SULFATE 2 MG/ML SYR ONE (08:38)
[2018-03-01] MEDS ORDERED: MORPHINE SULFATE 2 MG/ML SYR IV STA (08:47)
[2018-03-01] MEDS ORDERED: ONDANSETRON HCL INJ 2 MG/ML VIAL IV STA (08:47)
[2018-03-01] MEDS ORDERED: SODIUM CHLORIDE 0.9% 1000ML 1,000 ML IV STA (09:00)
[2018-03-01] MEDS ORDERED: METOPROLOL TARTRATE INJ 1 MG/ML VIAL IV ONE (09:00)
[2018-03-01 09:12] LABS: BASOPHILS # (AUTO) 0.1 (0.0-0.1); BASOPHILS % 0.4 % (0.0-1.0); EOSINOPHILS # (AUTO) 0.3 (0.0-0.4); EOSINOPHILS % 2.2 % (0.0-6.0); LYMPHOCYTES # (AUTO) 2.3 (1.0-3.2); LYMPHOCYTES % 14.5 % (18.0-39.1); MEAN CORPUSCULAR HEMOGLOBIN 25.1 pg (28-32); MEAN CORPUSCULAR VOLUME 80.9 fL (81-99); MONOCYTES # (AUTO) 0.7 (0.2-0.8); MONOCYTES % 4.3 % (4.4-11.3); NEUTROPHILS # (AUTO) 12.3 (2.1-6.9); NEUTROPHILS % 78.2 % (38.7-80.0); PLATELET COUNT 535 x10e3/uL (140-360); RED BLOOD COUNT 3.83 x10e6/uL (3.6-5.1); RED CELL DISTRIBUTION WIDTH 15.3 % (11.7-14.4)
[2018-03-01 09:15] LABS: HEMOGLOBIN 9.6 g/dL (12.0-16.0)
[2018-03-01 09:26] LABS: ALANINE AMINOTRANSFERASE 10 IU/L (0-55); ALBUMIN 3.3 g/dL (3.5-5.0); ALBUMIN/GLOBULIN RATIO 0.6 (0.8-2.0); ALKALINE PHOSPHATASE 93 IU/L (40-150); ANION GAP 20.2 mmol/L (8-16); BLOOD UREA NITROGEN 26 mg/dL (7-26); BUN/CREATININE RATIO 31 (6-25); CALCIUM 9.7 mg/dL (8.4-10.2); CARBON DIOXIDE 22 mmol/L (22-29); CHLORIDE 102 mmol/L (98-107); CREATINE KINASE 28 IU/L (29-168); CREATININE, SERUM 0.84 mg/dL (0.57-1.11); EST GLOMERULAR FILTRATION RATE > 60 ML/MIN (60-); GLUCOSE 212 mg/dL (74-118); POTASSIUM 4.2 mmol/L (3.5-5.1); SODIUM 140 mmol/L (136-145)
[2018-03-01] MEDS: CEFTRIAXONE SOD 1 GM VIAL IV SCH (09:26)
[2018-03-01] MEDS ORDERED: LORAZEPAM INJ 2 MG/ML VIAL ONE (10:13)
[2018-03-01] MEDS ORDERED: LORAZEPAM INJ 2 MG/ML VIAL IV ONE (10:15)
[2018-03-01] MEDS ORDERED: CEFTRIAXONE SOD 1 GM VIAL IV SCH ×3 (11:00→21:00)
--- NOTE | 2018-03-01 11:36 | Diagnostic Imaging Report ---
EXAM: CT of the abdomen and pelvis WITH contrast HISTORY: Hematuria COMPARISON: None available. TECHNIQUE: The abdomen and pelvis were scanned utilizing a multidetector helical scanner. Coronal and sagittal reformats are provided. PROTOCOL: Routine IV CONTRAST: 100 cc of Isovue-370. ORAL CONTRAST: None, which limits sensitivity and specificity of the exam. RADIATION DOSE: Total DLP: 700.15 mGy*cm Estimated effective dose: (DLP x 0.015 x size factor) Dose modulation, iterative reconstruction, and/or weight based adjustment of the mA/kV was utilized to reduce the radiation dose to as low as reasonably achievable. COMPLICATIONS: None FINDINGS: The left upper extremity overlies the left lower thorax, which partially limits the evaluation due to beam prescott artifact. LOWER THORAX: Unremarkable. HEPATOBILIARY: No focal hepatic lesions. No biliary ductal dilatation. The gallbladder is unremarkable. SPLEEN: No splenomegaly. PANCREAS: No focal masses or ductal dilatation. ADRENALS: No discrete adrenal nodule. KIDNEYS/URETERS: Mild bilateral hydroureteronephrosis. No stone or renal mass. PELVIC ORGANS/BLADDER: A Peraza catheter within the urinary bladder. Heterogeneous increased density within the bladder lumen measuring up to 60 Hounsfield units with intermixed air foci. At the superior and right aspect of the bladder, a diverticulum containing a focus of air is possible. The superior bladder wall particularly is slightly ill-defined with adjacent fat stranding, lateral with nonspecific inflammatory changes. PERITONEUM / RETROPERITONEUM: No free air or fluid. LYMPH NODES: No pathologically enlarged lymph node. VESSELS: Scattered atherosclerotic vascular calcifications, including the coronary arteries. GI TRACT: No distention or wall thickening identified. The stomach is predominantly decompressed, which limits evaluation. The appendix is normal. BONES: No aggressive osseous lesion or acute fracture. Right convex curvature of the thoracolumbar spine. The level mild to severe degenerative changes, most notably at L4-5. SOFT TISSUES: Unremarkable. IMPRESSION: 1. Increased density within the lumen of the urinary bladder, the differential considerations include blood clot and/or bladder carcinoma. 2. Mild bilateral hydroureteronephrosis. Signed by: Dr. Nicko Alicea D.O., M.M.M. on 03/01/2018 11:33 AM
[2018-03-01] MEDS ORDERED: HYDROMORPHONE 2MG/ML 2 MG/ML ML IV ONE ×2 (12:00→17:30)
[2018-03-01] MEDS ORDERED: ONDANSETRON HCL INJ 2 MG/ML VIAL IV PRN (12:30)
[2018-03-01] MEDS ORDERED: SODIUM CHLORIDE FLUSH 10 ML SYR INJ PRN (12:30)
[2018-03-01] MEDS ORDERED: HYDROMORPHONE 1MG/1ML INJ IV PRN ×2 (12:30→15:45)
[2018-03-01] MEDS ORDERED: HYDROMORPHONE 2MG/ML 2 MG/ML ML IV PRN (12:45)
--- OUTSIDE RECORDS SUMMARY | 2018-03-01 12:52 | XMS REPORT | Summary of Care ---
Author Author [facility] Unknown Address [facility] Phone Unavailable Care Team Providers Care Avian Keeper Name Role Phone RAMYA GARCÍA M.D. Unavailable [...] Planned Encounters Appointment; RAMYA GARCÍA M.D. On: 01-Mar-2018 9:15 Interventions Provided Instructions* Patient Specific Education Given; Done: 01 Mar 2018 Plan* I evaluated Ms. Thompson today for Instructions Name Dates Details Instructions not documented Encounters Appointment; ASKENASY, RADHA Encounter Diagnosis: Problem not documented On: 19-Sep-2016 17:00 Appointment; ASKENASY, RADAH Encounter Diagnosis: Problem not documented On: 20-Sep-2016 [...] Diagnosis: Problem not documented On: 19-Feb-2018 9:30 Appointment; RAMYA GARCÍA M.D. Encounter Diagnosis: Problem not documented On: 01-Mar-2018 9:15
[2018-03-01] MEDS ORDERED: BISACODYL5 MG PR (14:26)
[2018-03-01] MEDS ORDERED: ACETAMINOPHEN325 M1 PO (14:26)
[2018-03-01] MEDS ORDERED: ASPIR 8181 MG PO (14:26)
[2018-03-01] MEDS ORDERED: BACLOFEN10 MG PO (14:26)
[2018-03-01] MEDS ORDERED: LANTUS 3ML100 UNITS/ SQ (14:39)
[2018-03-01] MEDS ORDERED: DOCUSATE SODIU100 MG PO (14:39)
[2018-03-01] MEDS ORDERED: CELEXA10 MG PO (14:39)
[2018-03-01] MEDS ORDERED: TIZANIDINE HCL4 MG PO (14:39)
[2018-03-01] MEDS ORDERED: B-121000 MCG PO (14:39)
[2018-03-01] MEDS ORDERED: SENNA LAX8.6 MG PO (14:39)
[2018-03-01] MEDS ORDERED: NEURONTIN400 MG PO (14:39)
[2018-03-01] MEDS ORDERED: NEURONTIN300 MG PO (14:39)
[2018-03-01] MEDS ORDERED: LIPITOR20 MG PO (14:39)
[2018-03-01] MEDS ORDERED: FERROUS SULFAT325 MG PO (14:39)
[2018-03-01] MEDS: SODIUM CHLORIDE 0.9% 1000ML 1,000 ML IV SCH (15:45)
[2018-03-01] MEDS ORDERED: MORPHINE SULFATE 2 MG/ML SYR IV PRN (15:45)
[2018-03-01] MEDS ORDERED: PROMETHAZINE HCL (IM) 25 MG/ML VIAL IM PRN (15:45)
[2018-03-01] MEDS ORDERED: DEXTROSE 50% SYRINGE 50 ML IV PRN (15:45)
--- NOTE | 2018-03-01 16:37 | History and Physical ---
CHIEF COMPLAINT: Hematuria. HPI: This is a 58-year-old female with known history of CVA in the past, who is bedbound and who requires antispasmodic medication, hyperlipidemia, iron deficiency anemia, and type-2 diabetes, who comes into the ED from the assisted after having significant gross hematuria ongoing since this morning. According to the family at bedside, the patient has been having significant amount of gross hematuria that began the first thing this morning. She has never experienced this before. They deny any trauma. Patient is bedbound at baseline and requires transfer to a wheelchair for mobilization. The patient apparently has a history of smoking in the past. Also has a history of type-2 diabetes that is well controlled. Patient currently denies any other symptoms at this time. Patient then presented to the ED with a significant amount of clots coming out of the bladder after CBI and had some excruciating pain. The patient was seen and evaluated at bedside on the medical floor. Currently doing well with no other issues at this time. REVIEW OF SYSTEMS: Pertinent positives: Gross hematuria, suprapubic abdominal pain. Pertinent negatives: Denies any chest pain, palpitations, nausea, vomiting, diarrhea, dysuria, frequency, urgency, lightheadedness, dizziness, abdominal pain, headache, shortness of breath, cough, congestion, fever or any other complaints. The rest of the 14-point review of systems have been reviewed with the patient and are negative. ALLERGIES: NO KNOWN DRUG ALLERGIES. HOME MEDICATIONS 1. Aspirin 81 mg daily. 2. Lipitor 20 mg daily. 3. Bisacodyl 5 mg daily. 4. Docusate 100 mg daily. 5. Iron tablets 325 mg p.o. b.i.d. 6. Gabapentin 400 mg p.o. b.i.d. 7. Lantus 10 units subcutaneous at bedtime. 8. Tizanidine 4 mg p.o. q.12 h. p.r.n. for muscle spasms. 9. Citalopram 15 mg at bedtime. PAST MEDICAL HISTORY: She has a history of a CVA with residual left-sided weakness, bedbound, wheelchair ambulatory. Type-2 diabetes, hypertension. Lives in a assisted. Iron deficiency anemia and chronic muscle spasms. PAST SURGICAL HISTORY: Reports none. FAMILY HISTORY: Hypertension, diabetes. SOCIAL HISTORY: Lives in a assisted. Good social support. No drugs. No alcohol. Unsure about smoking history. VITAL SIGNS: Temperature is 97.8, pulse 106, respiratory rate 20, blood pressure 99/62, pulse ox 99% on room air. LAB FINDINGS: White count 15.7, hemoglobin 9.6, hematocrit 31, platelets 335. Sodium 140, potassium 4.2, chloride 102, bicarb 22, anion gap 20, BUN 26, creatinine 0.8, glucose 212, calcium 9.7. Total bilirubin 0.3, AST 11, ALT 10, alkaline phosphatase 73. CK 48, CK-MB 2, troponin is 0.11. Total protein 8.5, albumin 3.3. There is no UA, but the patient has a significant amount of gross hematuria. MICROBIOLOGY: None. IMAGING STUDIES: CT of the abdomen and pelvis showed increased density within the lumen of the urinary bladder. Differential diagnosis includes blood clot versus bladder carcinoma. There is mild bilateral hydronephrosis. PHYSICAL EXAMINATION GENERAL: Not in acute distress. Alert and oriented times 3. Cooperative on examination. HEENT: Head is normocephalic and atraumatic. Eyes: Pupils are equal, round and reactive to light bilaterally. The extraocular movements are intact bilaterally. NECK: Supple with good range of motion. THROAT: No evidence of any erythema or exudate in the posterior pharynx. Has poor dentition. PULMONARY: Clear to auscultation bilaterally. No wheezes, no rales, no rhonchi, no crackles appreciated. CARDIOVASCULAR: Positive S1 and S2. No murmurs, rubs or gallops appreciated. ABDOMEN: Soft, nondistended and nontender to palpation. Bowel sounds present. MUSCULOSKELETAL: The patient has left-sided weakness, 3/5. NEUROLOGIC: Left-sided weakness, 3/5. Cranial nerves II through XII are intact. SKIN: Intact. Warm to touch. Good cap refill. PSYCHIATRIC: Normal affect and mood. EXTREMITIES: No edema. Good range of motion throughout. IMPRESSION AND PLAN 1. Gross hematuria, unknown etiology, with blood clots. CT imaging was consistent with concerns of blood clot versus bladder mass. Urology was consulted and recommended no CBI at this time, according to the nursing staff. Continue the Peraza for now. Will hold blood thinners. Put on SCDs. 2. Anemia, likely due to gross hematuria. The hemoglobin is currently stable at 9.6. We will continue to monitor closely. 3. Sepsis with leukocytosis: The patient is afebrile. Does have leukocytosis. Could be reactive elevated white count; but at this time, we are going to continue with IV Rocephin in the event the patient likely has a UTI. 4. History of cerebrovascular accident with residual left-sided weakness. 5. Type-2 diabetes. Insulin sliding scale with long-acting Lantus. 6. Bilateral heel ulcerations: Will get wound care nurse to eval and treat these wounds for further evaluation and management. 7. Prophylaxis: SCDs. 8. Fluids, electrolytes and nutrition: IV fluids, regular diet. 9. PT and OT eval and treat. 10. Disposition: Inpatient. Urology consulted. 11. Discharge planning: Will await urology recommendations. Will likely need a cystoscopy to evaluate hematuria. Will also get wound care team. Continue with antibiotics and pain control. I discussed the overall plan of care with the nurse present and with the family present as well and discussed the overall plan of care with them, and they were satisfied and verbalized an understanding. Job#: [id number]
[2018-03-01] MEDS: FERROUS SULFATE 325 MG TAB PO SCH (17:00)
[2018-03-01] MEDS ORDERED: LIDOCAINE HCL 2% LOCAL INJ 5 ML SDV VIAL INJ ONE (17:22)
[2018-03-01] MEDS ORDERED: DEXAMETHASONE SOD PHOS INJ 4 MG/ML VIAL ONE (17:22)
[2018-03-01] MEDS ORDERED: SEVOFLURANE INHAL SOLN 250 ML PEN BTL ONE (17:22)
[2018-03-01] MEDS ORDERED: EPHEDRINE SULFATE INJ 50 MG/10 ML SYR ONE (17:22)
[2018-03-01] MEDS ORDERED: PROPOFOL IV EMULSION 10 MG/ML 20 ML VIAL ONE (17:22)
[2018-03-01 17:33] LABS: CREATINE KINASE MB 22.6 ng/mL (0-5.0)
[2018-03-01] MEDS ORDERED: ASPIRIN 325 MG TAB PO NR (17:45)
[2018-03-01] MEDS ORDERED: ASPIRIN 325 MG TAB PO ONE (18:00)
[2018-03-01] MEDS: METOPROLOL TARTRATE 25 MG TAB PO SCH (18:56)
[2018-03-01] MEDS ORDERED: CITALOPRAM HYDROBROMIDE 15 MG PO SCH (21:00)
[2018-03-01] MEDS: GABAPENTIN 300 MG CAP PO SCH (21:00)
[2018-03-01] MEDS ORDERED: ATORVASTATIN 20 MG TAB PO SCH (21:00)
[2018-03-01] MEDS: INSULIN DETEMIR 100 UNIT/ML PEN SQ SCH (21:00)
[2018-03-01] MEDS ORDERED: IOPAMIDOL 370 MG/ML 200 ML INFUS..BTL INJ ONE ×2 (21:19→21:20)
[2018-03-01] MEDS ORDERED: SODIUM CHLORIDE 0.9% 50ML 50 ML ONE (21:19)
[2018-03-01] MEDS: TIZANIDINE HCL 4 MG TAB PO PRN (22:56)
[2018-03-01] MEDS: HYDROCODONE/APAP 5MG-325MG TAB PO PRN (22:56)
[2018-03-02] VITALS (9 sets, daily range): BP systolic 91–135; BP diastolic 52–79
[2018-03-02] MEDS: SODIUM CHLORIDE 0.9% 1000ML 1,000 ML IV SCH ×2 (01:59→11:45)
[2018-03-02 05:06] LABS: BASOPHILS % 0.4 % (0.0-1.0); EOSINOPHILS # (AUTO) 0.1 (0.0-0.4); EOSINOPHILS % 0.6 % (0.0-6.0); HEMOGLOBIN 7.6 g/dL (12.0-16.0); LYMPHOCYTES # (AUTO) 1.2 (1.0-3.2); MEAN CORPUSCULAR HEMOGLOBIN 25.2 pg (28-32); MEAN CORPUSCULAR HGB CONC 29.2 g/dL (31-35); MEAN CORPUSCULAR VOLUME 86.4 fL (81-99); MONOCYTES # (AUTO) 0.7 (0.2-0.8); MONOCYTES % 7.5 % (4.4-11.3); NEUTROPHILS # (AUTO) 7.7 (2.1-6.9); NEUTROPHILS % 79.1 % (38.7-80.0); PLATELET COUNT 401 x10e3/uL (140-360); RED BLOOD COUNT 3.01 x10e6/uL (3.6-5.1); RED CELL DISTRIBUTION WIDTH 15.9 % (11.7-14.4)
[2018-03-02 05:29] LABS: CREATINE KINASE MB 13.6 ng/mL (0-5.0)
[2018-03-02 05:49] LABS: ANION GAP 17.7 mmol/L (8-16); CALCIUM 8.3 mg/dL (8.4-10.2); CREATININE, SERUM 1.17 mg/dL (0.57-1.11); POTASSIUM 4.7 mmol/L (3.5-5.1)
[2018-03-02] MEDS ORDERED: SODIUM CHLORIDE 0.9% 250ML 250 ML IV ONE ×2 (07:30→14:40)
[2018-03-02] MEDS: METOPROLOL TARTRATE 25 MG TAB PO SCH ×2 (09:00→17:00)
[2018-03-02] MEDS: SENNOSIDES 8.6 MG TAB PO SCH (09:00)
[2018-03-02] MEDS: BISACODYL 5 MG TAB EC PO SCH (09:00)
[2018-03-02] MEDS: CYANOCOBALAMIN 1,000 MCG TAB PO SCH (09:00)
[2018-03-02] MEDS: DOCUSATE SODIUM 100 MG CAP PO SCH (09:00)
[2018-03-02] MEDS: GABAPENTIN 300 MG CAP PO SCH ×2 (09:00→20:12)
[2018-03-02] MEDS ORDERED: ASPIRIN 81 MG CHEW TAB PO SCH (09:00)
[2018-03-02] MEDS ORDERED: NON-FORMULARY MEDICATION (Cyanocobalamin (Vitamin B-12) (B-12) 1,000 MCG) PO SCH (09:00)
[2018-03-02] MEDS: CITALOPRAM HYDROBROMIDE 20 MG TAB PO SCH ×2 (09:00→20:12)
[2018-03-02] MEDS: FERROUS SULFATE 325 MG TAB PO SCH ×2 (09:00→17:00)
[2018-03-02] MEDS: CEFTRIAXONE SOD 1 GM VIAL IV SCH (09:19)
[2018-03-02] MEDS: TIZANIDINE HCL 4 MG TAB PO PRN (11:38)
[2018-03-02] MEDS: HYDROCODONE/APAP 5MG-325MG TAB PO PRN ×2 (13:45→20:12)
--- NOTE | 2018-03-02 17:08 | Progress Note ---
DATE: March 02, 2018 MEDICINE PROGRESS NOTE SUBJECTIVE: Patient is doing well today with no other issues. She still has a significant amount of hematuria and looks pretty pale on examination. Her troponin was elevated and cardiology was consulted. LAB FINDINGS: Show white count 9.7, hemoglobin is 7.6, hematocrit is 26, platelets of 401. Chemistry: Sodium 136, potassium 4.7, chloride 105, bicarb 18, anion gap of 17, BUN is 34, creatinine is 1.1, glucose is 170. Calcium is 8.3. Her CK is 190. Her CK-MB was 13.6. Her last troponin was 7.9. Albumin was 3.3. MICROBIOLOGY: Urine culture is pending. IMAGING STUDIES: None. PHYSICAL EXAMINATION VITAL SIGNS: Temperature is 97.6, pulse 87, respiratory rate is 80, blood pressure is 91/56, pulse ox is 96% on room air. GENERAL: Not in acute distress. Alert and oriented x3, cooperative on examination. HEENT: Head; normocephalic, atraumatic. Eyes: Pupils are equal, round, and reactive to light bilaterally. Extraocular movements intact bilaterally. Throat; no evidence of any erythema or exudates in the posterior pharynx. Has poor dentition. NECK: Supple with good range of motion. PULMONARY: Clear to auscultation bilaterally. No wheezing, no rales, no rhonchi, no crackles appreciated. CARDIOVASCULAR: Positive S1, S2. No murmurs, rubs or gallops appreciated. ABDOMEN: Soft, nondistended, nontender to palpation. Bowel sounds present. MUSCULOSKELETAL: Strength is 5/5 throughout. NEUROLOGICAL: No evidence of any neurological deficit on exam. SKIN: Intact. Warm to touch. Good capillary refill. PSYCHIATRIC: Normal affect and mood. EXTREMITIES: No edema. Good range of motion throughout. IMPRESSION 1. Gross hematuria of unknown etiology with blood clots - urology is following who is recommending eventually to do a cystoscopy in the next 1 to 2 days. Currently, her troponins are elevated, so we would need cardiac clearance in which cardiology has been consulted. 2. Yio-QD-wkdqjwmuw myocardial infarction - troponin peak was 7.9, unknown etiology, she was on aspirin, but now currently discontinued. We are having difficulty to heparinize her considering that she has hematuria. We will continue follow cardiology recommendations on this. 3. Sepsis with leukocytosis - she is currently afebrile. Her white count has improved. Continue with intravenous Rocephin. Urine culture will be very useful considering this purely gross hematuria. 4. History of cerebrovascular accident in the past with residual left-sided weakness at baseline. 5. Type2 diabetes - insulin sliding scale, Accu-Cheks, hemoglobin A1c, long-acting Lantus. 6. Bilateral heel ulcerations. We will get wound care nurse to evaluate her on Sunday. 7. Prophylaxis. Sequential compression devices. 8. Fluids, electrolytes and nutrients - IV fluids, regular diet. 9. PT and OT eval and treat. 10. Disposition. Inpatient. Urology and cardiology consulted. DISCHARGE PLANNING: Patient will now need cardiology clearance before any urological workup. She now has NSTEMI. Both consultants are on the case and we will discuss this with them together what is the appropriate next plan of care. At any of the issue, we will still need a cystoscopy to evaluate the hematuria. I also updated the patient's family, in which the patient requests for me to update her sister, Jazlyn, with which I discussed the overall plan of care over the phone and discussed with 2 consultants that are evaluating her. Job#: [id number] MARIO
--- NOTE | 2018-03-02 17:42 | Consultation ---
DATE OF CONSULTATION: March 02, 2018 UROLOGY CONSULTATION REASON FOR CONSULTATION: Gross hematuria. HISTORY OF PRESENT ILLNESS: Susanna Thompson is a 58-year-old woman with complicated urological history. The patient underwent what sounds like a laparoscopic correction of a colovesical fistula at [facility]. The patient has had hematuria once in the past. She has had recurrent urinary tract infections. She had a stroke 16 years ago and now her condition is deteriorated to the point where she lives at [facility]. She had gross hematuria and was brought to the hospital. She was evaluated and found to have elevated and rising troponin and her aspirin was continued. She normally takes aspirin and the emergency room physician told me he was going to stop it, but due to the elevated troponins, aspirin has been continued. Patient continues to have gross hematuria and has received 1 unit of blood transfusion. Patient denies any previous urolithiasis and does not recall the name of her previous urologist. PAST MEDICAL AND SURGICAL HISTORY 1. Hyperlipidemia. 2. Iron deficiency anemia. 3. Diabetes mellitus. 4. Status post CVA 16 years ago. 5. Status post total abdominal hysterectomy and bilateral salpingo-oophorectomy. 6. Left-sided hemiparesis. 7. Hypertension. 8. Chronic muscle spasms. 9. History of drug abuse. 10. Prior history of smoking. ALLERGIES: NONE KNOWN. CURRENT MEDICATIONS: Please refer to the MAR. 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 She used to use snorted cocaine. She also used to smoke. FAMILY HISTORY: Noncontributory to the active urological problems that includes hypertension and diabetes mellitus. REVIEW OF SYSTEMS: As discussed above in the history of present illness and past medical history, otherwise negative for all systems. PHYSICAL EXAMINATION GENERAL: Debilitated appearing woman, lying in bed, in no apparent distress, is currently afebrile. VITAL SIGNS: Currently stable. ABDOMEN: Soft, nondistended, nontender without costovertebral angle tenderness. Kidneys are not palpable without hepatosplenomegaly. GENITOURINARY: Has a Peraza catheter in place draining dark red urine out. For the remaining physical examination systems, please refer to the admission history and physical on chart. LABORATORY STUDIES: CT scan of the abdomen and pelvis showed mild bilateral hydroureteronephrosis. The radiologist was kind enough to provide us with differential diagnosis for increased density in the bladder. His creatinine is 1.17, which in relation from yesterday. Calcium is 8.3. Her troponins have risen from yesterday to today. White blood cell count is 9730 with [id number] yesterday. Her hemoglobin dropped from 9.6 yesterday to 7.6 today and her platelet counts 101,000. ASSESSMENT 1. Gross hematuria. 2. Urinary tract infection history. 3. Peraza catheter in situ. 4. Leukocytosis, improved. 5. Anemia. 6. Hypocalcemia. 7. Presumably acute renal insufficiency. PLAN 1. This is an actively bleeding patient. We will need to keep her hemoglobin above the 10. The patient's hemoglobin dropped 2 points from yesterday to today. I recommend transfusing 2 additional units of blood on top of the one she already received today. unit. 2. The patient has been on an aspirin daily. From a urological standpoint, we prefer the aspirin be stopped in order to help us control her hematuria as well as prepare for cystoscopy, retrograde pyelograms to indicate the procedures which may include a transurethral resection of a bladder tumor if present. 3. We have ordered for regular bladder irrigations. Thank you very much for involving us in the care of your patient. I will be able to follow her along with you as well as an outpatient. Job#: [id number] NUZHAT cc:DR. LAMAR
--- NOTE | 2018-03-02 17:44 | Consultation ---
DATE OF CONSULTATION: March 02, 2018 CARDIOLOGY CONSULTATION NOTE REASON FOR CONSULTATION: Dsq-TF-ydvtqpz elevation myocardial infarction. HISTORY OF PRESENT ILLNESS: Ms. Thompson is a 58-year-old female. She has had multiple coronary stents, last of which was done around 10 years ago. No recent chest pain. No recent symptoms. Comes into the hospital with marked hematuria. Dr. Hays plans on doing cystoscopy; however, she has had considerable bleeding with 2-gram hemoglobin drop. Cardiac enzymes are elevated consistent with myocardial infarction. Creatinine is 1.17. PAST MEDICAL HISTORY: Stroke, diabetes, hypertension, and iron-deficiency anemia. SOCIAL HISTORY: Patient lives in a fci. Does not smoke or drink. REVIEW OF SYSTEMS: Negative except as dictated in the history of present illness. PHYSICAL EXAMINATION VITAL SIGNS: Afebrile, heart rate is 87, blood pressure 91/57, and O2 sat is 96%. CARDIOVASCULAR: Regular rhythm. Systolic murmur. LUNGS: Clear to auscultation bilaterally. LABS: Cardiac troponin is 7, CPK is 190, CPK-MB 13.6. IMAGING: Abdomen CT was reviewed. ASSESSMENT 1. Lgl-TT-pefdqrm elevation myocardial infarction. 2. Massive urological bleeding. RECOMMENDATIONS: At this point, Ms. Thompson continues to bleed excessively. I will stop her aspirin. She is cleared from the cardiac standpoint for cystoscopy. We will initiate beta-andrea and a statin as tolerated by her blood pressure. Overall prognosis is poor and guarded. I thank Dr. Farley for this consultation. Job#: [id number] MAGDALENA
[2018-03-02] MEDS: FUROSEMIDE INJ 10 MG/ML 2 ML VIAL IV PRN ×2 (18:50→23:52)
[2018-03-02] MEDS: ATORVASTATIN 10 MG TAB PO SCH (20:12)
[2018-03-02] MEDS: INSULIN DETEMIR 100 UNIT/ML PEN SQ SCH (20:16)
[2018-03-02] MEDS ORDERED: SODIUM CHLORIDE 0.9% 250ML 250 ML ONE (20:56)
[2018-03-03] VITALS (8 sets, daily range): BP systolic 100–157; BP diastolic 65–85
[2018-03-03 05:07] LABS: BASOPHILS % 0.5 % (0.0-1.0); EOSINOPHILS # (AUTO) 0.2 (0.0-0.4); EOSINOPHILS % 2.1 % (0.0-6.0); HEMATOCRIT 30.5 % (34.2-44.1); HEMOGLOBIN 10.3 g/dL (12.0-16.0); LYMPHOCYTES # (AUTO) 1.2 (1.0-3.2); LYMPHOCYTES % 14.9 % (18.0-39.1); MEAN CORPUSCULAR HEMOGLOBIN 26.3 pg (28-32); MEAN CORPUSCULAR HGB CONC 33.8 g/dL (31-35); MONOCYTES # (AUTO) 0.5 (0.2-0.8); MONOCYTES % 6.4 % (4.4-11.3); NEUTROPHILS # (AUTO) 6.2 (2.1-6.9); NEUTROPHILS % 75.7 % (38.7-80.0); PLATELET COUNT 358 x10e3/uL (140-360); RED BLOOD COUNT 3.91 x10e6/uL (3.6-5.1); RED CELL DISTRIBUTION WIDTH 16.4 % (11.7-14.4)
[2018-03-03 05:23] LABS: ANION GAP 17.5 mmol/L (8-16); BLOOD UREA NITROGEN 20 mg/dL (7-26); BUN/CREATININE RATIO 26 (6-25); CALCIUM 8.5 mg/dL (8.4-10.2); CARBON DIOXIDE 22 mmol/L (22-29); CHLORIDE 104 mmol/L (98-107); CREATININE, SERUM 0.76 mg/dL (0.57-1.11); EST GLOMERULAR FILTRATION RATE > 60 ML/MIN (60-); GLUCOSE 139 mg/dL (74-118); POTASSIUM 3.5 mmol/L (3.5-5.1); SODIUM 140 mmol/L (136-145)
[2018-03-03] MEDS: SODIUM CHLORIDE 0.9% 1000ML 1,000 ML IV SCH ×3 (07:04→17:02)
[2018-03-03] MEDS: DOCUSATE SODIUM 100 MG CAP PO SCH (09:00)
[2018-03-03] MEDS: FERROUS SULFATE 325 MG TAB PO SCH ×2 (09:00→16:22)
[2018-03-03] MEDS: BISACODYL 5 MG TAB EC PO SCH (09:00)
[2018-03-03] MEDS: SENNOSIDES 8.6 MG TAB PO SCH (09:00)
[2018-03-03] MEDS: CYANOCOBALAMIN 1,000 MCG TAB PO SCH (09:00)
[2018-03-03] MEDS: METOPROLOL TARTRATE 25 MG TAB PO SCH ×2 (09:00→16:22)
[2018-03-03] MEDS: GABAPENTIN 300 MG CAP PO SCH ×2 (09:00→20:51)
[2018-03-03] MEDS: CEFTRIAXONE SOD 1 GM VIAL IV SCH (09:16)
--- NOTE | 2018-03-03 11:45 | Progress Note ---
DATE: March 03, 2018 CARDIOLOGY PROGRESS NOTE SUBJECTIVE: Ms. Thompson's hematuria is resolving. OBJECTIVE VITAL SIGNS: Afebrile. Heart rate 81, blood pressure 137/67. CARDIOVASCULAR: Regular rhythm. S4 gallop. LUNGS: Clear to auscultation bilaterally. ABDOMEN: Soft. Bowel sounds heard adequately. Ejection fraction is normal. Hemoglobin is 10.3. Serum creatinine is normal. ASSESSMENT: Non-ST segment elevation myocardial function in the setting of symptomatic hematuria. RECOMMENDATIONS: At this point, aspirin has been held and the patient is on metoprolol as well as a statin for medical therapy for a non-STEMI. Once surgical procedures are complete. We will reinitiate antiplatelets as well as consider a coronary angiography. Job#: [id number] RONALD
--- NOTE | 2018-03-03 16:12 | Progress Note ---
DATE: March 03, 2018 MEDICINE PROGRESS NOTE SUBJECTIVE: Patient is doing well today with no complaints. She still has hematuria. She is scheduled to have a cystoscopy done on Sunday or Sunday by urology, Dr. Hays. LABORATORY FINDINGS: Show white count is 8.2, hemoglobin 10.3, hematocrit 31, and platelets of 358. Chemistry; sodium 140, potassium 3.5, chloride 104, bicarb 22, anion gap of 17, BUN 20, creatinine is 0.76, glucose is 139, calcium is 8.5. MICROBIOLOGY: Urine culture is negative. IMAGING STUDIES: None. PHYSICAL EXAMINATION VITAL SIGNS: Temperature is 97.6, pulse 78, respiratory rate is 18, blood pressure is 144/71, pulse ox is 99%. She is on nasal cannula. GENERAL: Not in acute distress, alert and oriented x3, cooperative on examination. HEENT: Head: Normocephalic, atraumatic. Eyes: Pupils are equal, round, and reactive to light bilaterally. Extraocular movements intact bilaterally. Throat; no evidence of any erythema or exudates in the posterior pharynx. Has poor dentition. NECK: Supple with good range of motion. PULMONARY: Clear to auscultation bilaterally. No wheezing, no rales, no rhonchi, no crackles appreciated. CARDIOVASCULAR: Positive S1, S2. No murmurs, rubs, or gallops appreciated. ABDOMEN: Soft, nondistended, nontender to palpation. Bowel sounds present. MUSCULOSKELETAL: Strength is 5/5 throughout. No evidence of any musculoskeletal deficit on examination. No weakness appreciated. NEUROLOGIC: Cranial nerves II through XII are grossly intact. No evidence of any neurological deficit on exam. SKIN: Intact. Warm to touch. Good capillary refill. PSYCHIATRIC: Normal affect and mood. EXTREMITIES: No edema. Good range of motion throughout. IMPRESSION 1. Gross hematuria of unknown etiology with blood clots - scheduled for cystoscopy early this week. She is being held on antiplatelets per cardiology. Will like to do a left heart cath at some point during this hospital stay. Cardiology and urology is following. Her hemoglobin is much improved greater than 10 and patient had received 3 units of packed RBC yesterday. 2. Non-ST segment elevation myocardial infarction. Troponin is peaked at 7.9. Antiplatelets were held by cardiology. She will need some sort of left heart cath at some point during this hospital stay. We will continue to follow with cardiology. 3. Sepsis with leukocytosis, currently afebrile, doing well. White count is proved. Continue IV Rocephin. 4. History of cerebrovascular accident with residual left-sided weakness at baseline. 5. Type 2 diabetes. Continue with insulin sliding scale. Accu-Chek. Hemoglobin A1c is low and long acting Lantus. 6. Bilateral heel ulceration. Will get a wound care nurse in the morning to evaluate on Sunday. 7. Prophylaxis. SCDs. 8. Fluids, electrolytes and nutrients - IV fluids, regular diet. 9. PT and OT eval and treat. 10. Disposition - inpatient, urology and cardiology consulted. DISCHARGE PLANNING: Patient was scheduled to have a urological evaluation sometime this week with cystoscopy for the hematuria. At this time, patient will likely have left heart cath. It will be deferred until cystoscopy is performed. Job#: [id number] NUZHAT
[2018-03-03] MEDS: TIZANIDINE HCL 4 MG TAB PO PRN (17:19)
[2018-03-03] MEDS: CITALOPRAM HYDROBROMIDE 20 MG TAB PO SCH (20:51)
[2018-03-03] MEDS: HYDROCODONE/APAP 5MG-325MG TAB PO PRN (20:51)
[2018-03-03] MEDS: ATORVASTATIN 10 MG TAB PO SCH (20:51)
[2018-03-03] MEDS: INSULIN DETEMIR 100 UNIT/ML PEN SQ SCH (20:51)
[2018-03-04] VITALS (8 sets, daily range): BP systolic 122–184; BP diastolic 65–91
[2018-03-04] MEDS: SODIUM CHLORIDE 0.9% 1000ML 1,000 ML IV SCH ×3 (04:30→23:45)
[2018-03-04 04:40] LABS: BASOPHILS % 0.4 % (0.0-1.0); EOSINOPHILS # (AUTO) 0.2 (0.0-0.4); HEMATOCRIT 33.9 % (34.2-44.1); HEMOGLOBIN 11.1 g/dL (12.0-16.0); LYMPHOCYTES # (AUTO) 1.6 (1.0-3.2); LYMPHOCYTES % 18.7 % (18.0-39.1); MEAN CORPUSCULAR HEMOGLOBIN 26.1 pg (28-32); MEAN CORPUSCULAR HGB CONC 32.7 g/dL (31-35); MEAN CORPUSCULAR VOLUME 79.8 fL (81-99); MONOCYTES # (AUTO) 0.5 (0.2-0.8); MONOCYTES % 6.3 % (4.4-11.3); NEUTROPHILS # (AUTO) 6.1 (2.1-6.9); NEUTROPHILS % 72.1 % (38.7-80.0); PLATELET COUNT 374 x10e3/uL (140-360); RED BLOOD COUNT 4.25 x10e6/uL (3.6-5.1); RED CELL DISTRIBUTION WIDTH 16.3 % (11.7-14.4)
[2018-03-04 05:01] LABS: ANION GAP 15.4 mmol/L (8-16); BLOOD UREA NITROGEN 13 mg/dL (7-26); BUN/CREATININE RATIO 19 (6-25); CALCIUM 9.2 mg/dL (8.4-10.2); CARBON DIOXIDE 19 mmol/L (22-29); CHLORIDE 109 mmol/L (98-107); EST GLOMERULAR FILTRATION RATE > 60 ML/MIN (60-); GLUCOSE 126 mg/dL (74-118); POTASSIUM 3.4 mmol/L (3.5-5.1); SODIUM 140 mmol/L (136-145)
[2018-03-04 06:17] LABS: CLARITY,URINE CLOUDY (CLEAR); COLOR,URINE YELLOW (YELLOW)
[2018-03-04 06:18] LABS: LEUKOCYTE ESTERASE ,URINE 1+ (NEGATIVE); NITRITE,URINE NEGATIVE (NEGATIVE); PROTEIN,URINE DIPSTICK TRACE (NEGATIVE)
[2018-03-04 06:19] LABS: BILIRUBIN,URINE NEGATIVE (NEGATIVE); KETONES,URINE NEGATIVE (NEGATIVE); URINE UROBILINOGEN 0.2 mg/dL (0.2 - 1)
[2018-03-04 06:29] LABS: RBC,URINE >50 /HPF (0-5)
[2018-03-04 06:30] LABS: WBC,URINE (MAN) 21-50 /HPF (0-5)
[2018-03-04 06:31] LABS: BACTERIA,URINE FEW /HPF; EPITHELIAL CELLS,URINE FEW /LPF
[2018-03-04] MEDS: HYDRALAZINE HCL 20 MG/ML VIAL IV PRN (06:42)
[2018-03-04] MEDS: CYANOCOBALAMIN 1,000 MCG TAB PO SCH (09:21)
[2018-03-04] MEDS: BISACODYL 5 MG TAB EC PO SCH (09:21)
[2018-03-04] MEDS: SENNOSIDES 8.6 MG TAB PO SCH (09:21)
[2018-03-04] MEDS: GABAPENTIN 300 MG CAP PO SCH ×2 (09:21→21:25)
[2018-03-04] MEDS: METOPROLOL TARTRATE 25 MG TAB PO SCH ×2 (09:21→17:14)
[2018-03-04] MEDS: DOCUSATE SODIUM 100 MG CAP PO SCH (09:21)
[2018-03-04] MEDS: CEFTRIAXONE SOD 1 GM VIAL IV SCH (09:21)
[2018-03-04] MEDS: FERROUS SULFATE 325 MG TAB PO SCH ×2 (09:21→17:14)
--- NOTE | 2018-03-04 15:27 | Progress Note ---
DATE: March 04, 2018 CARDIOLOGY PROGRESS NOTE SUBJECTIVE: The patient feels well. Denies any chest pain or shortness of breath. No other events. OBJECTIVE VITAL SIGNS: Temperature 97.9, heart rate 66, respirations 18, blood pressure 122/65, oxygen saturation 95% on 2 liters nasal cannula. GENERAL: She is a contracted women in no apparent distress, lying in bed. CARDIOVASCULAR: Regular rate and rhythm with no murmurs. LUNGS: Clear to auscultation. ABDOMEN: Soft and nontender. EXTREMITIES: Contracted. LABORATORY DATA: Reviewed. Hemoglobin 11.1, creatinine 0.7. TELEMETRY: Monitoring reveals normal sinus rhythm. ASSESSMENT AND PLAN: Non-ST elevation myocardial infarction. This is in the setting of acute blood loss anemia. She is hemodynamically stable and asymptomatic at this point. Continue metoprolol and statin for her non-ST elevation myocardial infarction. Start aspirin if okay with surgical team. Once cystoscopy and any surgical procedures area completed, consider coronary angiography. Job#: [id number]
[2018-03-04] MEDS ORDERED: POTASSIUM CHLORIDE 20 MEQ TAB CR PO ONE (15:45)
--- NOTE | 2018-03-04 16:34 | Progress Note ---
DATE: March 04, 2018 MEDICINE PROGRESS NOTE SUBJECTIVE: Patient is doing well today with no complaints. Her urine actually cleared up though she had some blood and more gross hematuria. She is doing well. No other issues. Vital signs are stable. She is scheduled for cystoscopy tomorrow. OBJECTIVE VITAL SIGNS: Temperature 97.9, pulse 63, respiratory rate 18, blood pressure 123/65, pulse ox 95% on room air. GENERAL: Not in acute distress. Alert and oriented times 3. Cooperative on examination. HEENT: Head is normocephalic and atraumatic. Eyes: Pupils equal, round and reactive to light bilaterally. Extraocular movements intact bilaterally. NECK: Supple. Good range of motion. Throat with no evidence of any erythema or exudates in the posterior pharynx. Has poor dentition. PULMONARY: Clear to auscultation bilaterally. No wheezing. No rales. No rhonchi. No crackles appreciated. CARDIOVASCULAR: Positive S1 and S2. No murmurs, rubs or gallops appreciated. ABDOMEN: Soft, nondistended and nontender to palpation. Bowel sounds present. MUSCULOSKELETAL: Strength is 5/5 throughout. No evidence of any muscle deficit on examination. No weakness appreciated. NEUROLOGICAL: Cranial nerves II-XII are grossly intact. No evidence of any neurological deficits on exam. SKIN: Intact. Warm to touch. Good cap refill. PSYCHIATRIC: Normal affect and mood. EXTREMITIES: No edema. Good range of motion throughout. LAB FINDINGS: Show a white count of 8.4, hemoglobin of 11.1, hematocrit 34, and platelets of 374,000. Chemistry: Sodium 140, potassium 3.4, chloride 109, bicarb 19, anion gap 15, BUN 13, creatinine 0.7, glucose 126. Calcium 9.2. Urinalysis shows greater than 50 rbcs, 21-50 wbcs. MICROBIOLOGY: Urine culture final shows no growth. IMPRESSION 1. Gross hematuria of unknown etiology: Scheduled for cystoscopy tomorrow by urology. Hemoglobin is stable. Get a.m. labs today. 2. Bxz-OW-jcmmvgg elevation myocardial infarction: Continue with antiplatelets for now and cardioprotective meds. Per cardiology, the patient will likely need a left heart cath prior to being discharged home. 3. Sepsis with leukocytosis: Currently, doing well. White count is normal. Continue with intravenous antibiotics. 4. History of cerebrovascular accident with residual left-sided weakness: At baseline. 5. Type 2 diabetes, stable: Will continue with insulin sliding scale and long-acting Lantus. 6. Bilateral heel ulceration: Will have wound care evaluate the patient. 7. Prophylaxis: Sequential compression devices. 8. Fluid, electrolytes and nutrients: Continue intravenous fluids. Regular diet. 9. Physical therapy and occupational therapy to evaluate and treat. 10. Disposition: As per urology and cardiology involved. 11. Discharge planning: Patient is scheduled for cystoscopy tomorrow by urology. Once we are able to get a plan of care from urology, the next step will be left heart cath by cardiology. Patient is likely here through the rest of the week. Job#: [id number] YANICK
[2018-03-04] MEDS: ATORVASTATIN 10 MG TAB PO SCH (21:25)
[2018-03-04] MEDS: CITALOPRAM HYDROBROMIDE 20 MG TAB PO SCH (21:25)
[2018-03-04] MEDS: INSULIN DETEMIR 100 UNIT/ML PEN SQ SCH (21:31)
[2018-03-05] VITALS (8 sets, daily range): BP systolic 129–164; BP diastolic 67–95
[2018-03-05] MEDS: HYDROCODONE/APAP 5MG-325MG TAB PO PRN ×2 (00:08→20:30)
[2018-03-05 04:53] LABS: BASOPHILS % 0.6 % (0.0-1.0); EOSINOPHILS # (AUTO) 0.1 (0.0-0.4); HEMATOCRIT 38.1 % (34.2-44.1); LYMPHOCYTES # (AUTO) 1.4 (1.0-3.2); LYMPHOCYTES % 21.4 % (18.0-39.1); MEAN CORPUSCULAR HEMOGLOBIN 26.1 pg (28-32); MEAN CORPUSCULAR HGB CONC 31.5 g/dL (31-35); MONOCYTES # (AUTO) 0.4 (0.2-0.8); NEUTROPHILS # (AUTO) 4.4 (2.1-6.9); NEUTROPHILS % 69.7 % (38.7-80.0); PLATELET COUNT 294 x10e3/uL (140-360); RED CELL DISTRIBUTION WIDTH 16.8 % (11.7-14.4)
[2018-03-05 05:01] LABS: MEAN CORPUSCULAR VOLUME 82.8 fL (81-99)
[2018-03-05 05:19] LABS: ANION GAP 14.7 mmol/L (8-16); BLOOD UREA NITROGEN 13 mg/dL (7-26); BUN/CREATININE RATIO 18 (6-25); CALCIUM 9.2 mg/dL (8.4-10.2); CARBON DIOXIDE 18 mmol/L (22-29); CHLORIDE 107 mmol/L (98-107); CREATININE, SERUM 0.71 mg/dL (0.57-1.11); EST GLOMERULAR FILTRATION RATE > 60 ML/MIN (60-); GLUCOSE 138 mg/dL (74-118); POTASSIUM 3.7 mmol/L (3.5-5.1); SODIUM 136 mmol/L (136-145)
[2018-03-05] MEDS ORDERED: BELLADONNA/OPIUM 60 MG SUPP PR ONE (06:40)
[2018-03-05] MEDS ORDERED: IOPAMIDOL 610MG/1ML 300 MG/ML VIAL IV ONE ×2 (06:40→07:38)
[2018-03-05] MEDS: GABAPENTIN 300 MG CAP PO SCH ×3 (08:04→20:22)
[2018-03-05] MEDS: DOCUSATE SODIUM 100 MG CAP PO SCH ×2 (08:04→08:53)
[2018-03-05] MEDS: FERROUS SULFATE 325 MG TAB PO SCH ×3 (08:04→17:01)
[2018-03-05] MEDS: BISACODYL 5 MG TAB EC PO SCH ×2 (08:04→08:53)
[2018-03-05] MEDS: METOPROLOL TARTRATE 25 MG TAB PO SCH ×3 (08:04→17:01)
[2018-03-05] MEDS: CYANOCOBALAMIN 1,000 MCG TAB PO SCH ×2 (08:05→08:54)
[2018-03-05] MEDS: COLLAGENASE OINTMENT 30 GM TUBE TP SCH (08:05)
[2018-03-05] MEDS: SENNOSIDES 8.6 MG TAB PO SCH ×2 (08:05→08:54)
[2018-03-05] MEDS: SODIUM CHLORIDE 0.9% 1000ML 1,000 ML IV SCH (08:54)
[2018-03-05] MEDS: CEFTRIAXONE SOD 1 GM VIAL IV SCH (08:54)
[2018-03-05] MEDS ORDERED: SODIUM CHLORIDE 0.9% 500ML 500 ML ONE (09:29)
--- NOTE | 2018-03-05 09:33 | Operative Report ---
DATE OF PROCEDURE: March 05, 2018 PREOPERATIVE DIAGNOSIS: Gross hematuria. POSTOPERATIVE DIAGNOSES 1. Gross hematuria. 2. Bladder diverticula. 3. Severely atrophic (senile) vaginitis. PROCEDURES PERFORMED 1. Cystourethroscopy with cystogram. 2. Interpretation of cystography. 3. Cystourethroscopy with bilateral ureteral catheterization and retrograde ureteropyelography. 4. Interpretation of retrograde ureteropyelography. 5. Pelvic examination under anesthesia. ANESTHESIA: General. COMPLICATIONS: None. CLINICAL SUMMARY: Please refer to consultation from the same hospitalization. The disc ruler operator on the case has cleared the patient to undergo anesthesia and this procedure. OPERATIVE PROCEDURE IN DETAIL: Informed consent was verified. Susanna Thompson was properly identified, taken to the operating room and placed on the cystoscopy table in the supine position. Anesthesia was uneventfully begun. The patient was then carefully and gently repositioned in a modified lithotomy position with all pressure points carefully well padded. A 22-[place] Peraza catheter with a 30-mL balloon that was filled with 25 mL was removed, and her genitalia were prepared and draped in the usual sterile fashion. The 22.5-[place]se cystoscope sheath with the obturator in place was atraumatically inserted into the patient's urethra. Panendoscopy of the urinary bladder revealed blanching and a bladder neck that appeared relatively fixed. Normally positioned and configured ureteral orifices were identified. There were 2 diverticula, one on the right lateral wall cephalad to the ureteral orifice and another one more medial to the first. It seems there are several fistulous tracts extending from the more lateral diverticulum. Contrast was injected to perform a cystography. Interpretation of cystography: Contrast was injected. There was no evidence of vesicoureteric reflux. The diverticula were noted. It is difficult to assess any extravasation. There was no gross extravasation noted. An 8-[place]se catheter was used to cannulate each ureter, and retrograde ureteropyelography was performed. Interpretation of retrograde ureteropyelography: Contrast was instilled in retrograde fashion bilaterally. There were no tumors, no stones and no diverticula. Unobstructed drainage was observed bilaterally fluoroscopically. Careful panendoscopy was again performed. It revealed no lesions. There was erythema noted. Specific area where bleeding occurred could not be discerned, but it could be related to one of the diverticula. It is possible that at least one of these diverticula could be iatrogenic, but it could be related to one of these diverticula. The cystoscope was withdrawn. A 22-[place] Peraza with a 10-mL balloon was placed and 10 mL placed into the balloon. It was irrigated to and fro to ensure it worked properly. Pelvic examination under anesthesia revealed a severely atrophic vaginitis. There was no cystocele and no rectocele. No abnormal palpable pelvic masses could be appreciated. The vagina was foreshortened. The patient was then uneventfully reversed from anesthesia and taken to the recovery room in stable condition. There were no complications to the procedure. She tolerated the procedure well. PLANS 1. Order a CT cystogram to evaluate for extravasation. 2. Once the cystogram has been obtained and we know the report, the patient may be discharged with a Peraza catheter in place and then have outpatient followup cystoscopy electively to see whether these diverticula and the appearance of the bladder improve. Job#: [id number] MYRTLE YANG
--- NOTE | 2018-03-05 12:41 | Diagnostic Imaging Report ---
PROCEDURE:CT PELVIS WITH CONTRAST COMPARISON:[facility], DX, RETROGRADE PYELOGRAM, 03/05/2018, 7:35. INDICATIONS:FISTULA TECHNIQUE:After obtaining the patient's consent, CT images of the pelvis were obtained after administration of dilute contrast into the bladder. The bladder was then drained and repeat scanning obtained. Dose sparing technology was utilized. CONTRAST:50 cc of Isovue-370 intermixed with 500 cc of saline. DLP: 643.31 mGy-cm FINDINGS: Contrast present within the bladder. There is a fistulous communication in the right lateral aspect of the bladder to the sigmoid colon. Diffuse vascular calcification is present. Small focal lytic lucency of the left iliac wing and body of the iliac bone. These are nonspecific but could represent bony metastasis. CONCLUSION: 1. 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 2. Focal small lytic lucencies of the left iliac bone are non-specific. Augustin Bowden D.O. Dictated by: Augustin Bowden D.O. on 03/05/2018 at 12:51 Electronically approved by: Augustin Bowden D.O. on 03/05/2018 at 12:51
--- NOTE | 2018-03-05 15:17 | Progress Note ---
DATE: March 05, 2018 MEDICINE PROGRESS NOTE SUBJECTIVE: Patient is doing well today with no other issues. She did undergo a cystoscopy and was found to have diverticula. Urology ordered a CT cystogram that showed evidence of a colovesicular fistula. Apparently, the family knew about this in the past from a prior accident, according to the sister and the patient. I discussed this case with urology and recommended general surgery consultation with Dr. Penaloza. The general surgeon has been consulted. OBJECTIVE VITAL SIGNS: Temperature 96.6, pulse 73, respiratory rate 16, blood pressure 148/82, pulse ox 99% on room air. LAB FINDINGS: White count 6.3, hemoglobin 12, hematocrit 38, platelets 294. Chemistry: Sodium 136, potassium 3.7, chloride 107, bicarb 18, anion gap 14, BUN 13, creatinine 0.71, glucose 138, calcium 9.2. Urine cultures were negative. IMAGING STUDIES: CT cystogram shows a colovesicular fistula involving the right lateral aspect of the bladder to the sigmoid colon. Focal small lucencies of the left iliac bone are nonspecific. PHYSICAL EXAMINATION GENERAL: Not in acute distress. Alert and oriented times 3. Cooperative on examination. HEENT: Head is normocephalic and atraumatic. Eyes: Pupils are equal and reactive to light bilaterally. Extraocular muscles intact bilaterally. NECK: Supple. Good range of motion. THROAT: No evidence of any erythema or exudates in the posterior pharynx. Has poor dentition. PULMONARY: Clear to auscultation bilaterally. No wheezing. No rales. No rhonchi. No crackles appreciated. CARDIOVASCULAR: Positive S1 and S2. No murmurs, rubs or gallops appreciated. ABDOMEN: Soft, nondistended and nontender to palpation. Bowel sounds present. MUSCULOSKELETAL: Strength is 5/5 throughout. No evidence of any muscle deficit on examination. No weakness appreciated. NEUROLOGICAL: Cranial nerves II through XII are grossly intact. No evidence of any neurological deficits on exam. SKIN: Intact. Warm to touch. Good cap refill. PSYCHIATRIC: Normal affect and mood. EXTREMITIES: No edema. Good range of motion throughout. IMPRESSION AND RECOMMENDATIONS 1. Gross hematuria, unknown etiology, status post cystoscopy that should double diverticulum. Status post CT cystogram that showed evidence of a colovesicular fistula. I discussed this case with urology and recommended a general surgery consultation with Dr. Penaloza. I already consulted Dr. Penaloza. Will monitor very closely. I discussed this case again with urology and surgery. 2. Aqt-WT-hloipqg elevation myocardial infarction: Continue with cardioprotective meds and antiplatelets, pending cardiology's final recommendations. 3. Sepsis with leukocytosis: Her cultures were all negative. Continue IV antibiotics for now. 4. Right upper extremity swelling: Venous Doppler has been ordered to rule out DVT. 5. History of cerebrovascular accident with residual left-sided weakness: At baseline. 6. Type-2 diabetes, stable: Continue long-acting Lantus and insulin sliding scale. 7. Bilateral heel ulceration: Wound care eval. 8. Prophylaxis: SCDs. 9. Fluid, electrolytes and nutrients: Continue with regular diet. 10. Physical therapy and occupational therapy to evaluate and treat. 11. Disposition: Inpatient urology and cardiology and now general surgery have been consulted. 12. Discharge planning: Per urology, we recommend general surgery with Dr. Penaloza. He has been consulted. Would like to see his opinion based on this colovesicular fistula. Also, need final recommendation by cardiology. Hopefully, we can see what is the next plan of care from a cardiac standpoint. Job#: [id number]
--- NOTE | 2018-03-05 18:51 | Progress Note ---
DATE: March 05, 2018 CARDIOLOGY PROGRESS NOTE SUBJECTIVE: The patient feels overall better. She underwent cystoscopy today and was found to have bladder diverticula, which prompted a CT of the pelvis which showed a colovesicular fistula. She denies any chest pain or shortness of breath. OBJECTIVE VITAL SIGNS: Temperature 97.4, heart rate 84, respirations 18, blood pressure 129/85, oxygen saturation 99% on 2 liters nasal cannula. GENERAL: She is a chronically ill-appearing woman lying comfortably in bed in no apparent distress. CARDIOVASCULAR: Regular rate and rhythm. LUNGS: Clear to auscultation. ABDOMEN: Soft and nontender. EXTREMITIES: Contracted. NEUROLOGIC: Alert and oriented. LABORATORY DATA: Reviewed and notable for hemoglobin of 12. IMAGING DATA AND MEDICATIONS: Reviewed. IMPRESSION AND RECOMMENDATIONS: Non-ST elevation myocardial infarction. This is in the setting of acute blood loss anemia. No anticoagulation or aspirin is currently being used due to severe anemia at present on admission. If okay with surgical teams, start aspirin. She remains asymptomatic from a cardiovascular standpoint. Continue metoprolol and statin. Once all procedures are completed, may consider conventional coronary angiography. Job#: [id number]
[2018-03-05] MEDS ORDERED: FENTANYL CITRATE/PF 100MCG/2 ML INJ ONE (19:10)
[2018-03-05] MEDS: ATORVASTATIN 10 MG TAB PO SCH (20:22)
[2018-03-05] MEDS: CITALOPRAM HYDROBROMIDE 20 MG TAB PO SCH (20:22)
[2018-03-05] MEDS: INSULIN DETEMIR 100 UNIT/ML PEN SQ SCH ×2 (20:52→21:32)
[2018-03-06] VITALS (8 sets, daily range): BP systolic 138–161; BP diastolic 64–89
[2018-03-06] MEDS: SODIUM CHLORIDE 0.9% 1000ML 1,000 ML IV SCH ×3 (00:20→16:55)
[2018-03-06 04:35] LABS: BASOPHILS % 0.4 % (0.0-1.0); EOSINOPHILS # (AUTO) 0.1 (0.0-0.4); EOSINOPHILS % 2.1 % (0.0-6.0); HEMATOCRIT 34.8 % (34.2-44.1); HEMOGLOBIN 11.3 g/dL (12.0-16.0); LYMPHOCYTES # (AUTO) 1.8 (1.0-3.2); LYMPHOCYTES % 27.5 % (18.0-39.1); MEAN CORPUSCULAR HEMOGLOBIN 25.9 pg (28-32); MEAN CORPUSCULAR HGB CONC 32.5 g/dL (31-35); MONOCYTES # (AUTO) 0.4 (0.2-0.8); MONOCYTES % 6.3 % (4.4-11.3); NEUTROPHILS # (AUTO) 4.3 (2.1-6.9); NEUTROPHILS % 63.6 % (38.7-80.0); PLATELET COUNT 413 x10e3/uL (140-360); RED BLOOD COUNT 4.37 x10e6/uL (3.6-5.1); RED CELL DISTRIBUTION WIDTH 16.8 % (11.7-14.4)
[2018-03-06 04:44] LABS: MEAN CORPUSCULAR VOLUME 79.6 fL (81-99)
[2018-03-06 04:55] LABS: ANION GAP 12.4 mmol/L (8-16); BLOOD UREA NITROGEN 14 mg/dL (7-26); BUN/CREATININE RATIO 21 (6-25); CALCIUM 8.8 mg/dL (8.4-10.2); CARBON DIOXIDE 21 mmol/L (22-29); CHLORIDE 107 mmol/L (98-107); CREATININE, SERUM 0.68 mg/dL (0.57-1.11); EST GLOMERULAR FILTRATION RATE > 60 ML/MIN (60-); GLUCOSE 147 mg/dL (74-118); POTASSIUM 3.4 mmol/L (3.5-5.1); SODIUM 137 mmol/L (136-145)
[2018-03-06] MEDS: CYANOCOBALAMIN 1,000 MCG TAB PO SCH (08:58)
[2018-03-06] MEDS: METOPROLOL TARTRATE 25 MG TAB PO SCH ×2 (08:58→16:39)
[2018-03-06] MEDS: DOCUSATE SODIUM 100 MG CAP PO SCH (08:58)
[2018-03-06] MEDS: CEFTRIAXONE SOD 1 GM VIAL IV SCH (08:58)
[2018-03-06] MEDS: GABAPENTIN 300 MG CAP PO SCH ×2 (08:58→21:28)
[2018-03-06] MEDS: FERROUS SULFATE 325 MG TAB PO SCH ×2 (08:58→16:39)
[2018-03-06] MEDS: SENNOSIDES 8.6 MG TAB PO SCH (09:00)
[2018-03-06] MEDS: BISACODYL 5 MG TAB EC PO SCH (09:00)
--- NOTE | 2018-03-06 11:25 | Progress Note ---
DATE: March 06, 2018 CARDIOLOGY PROGRESS NOTE SUBJECTIVE: The patient feels well. Denies any chest pain, shortness of breath, palpitations. No further bleeding episodes. PHYSICAL EXAMINATION VITAL SIGNS: Temperature 98.2, heart rate 88, respirations 18, blood pressure 161/83, oxygen saturation 99% on 2 L nasal cannula. GENERAL: She is a chronically ill-appearing, contracted woman in no apparent distress. CARDIOVASCULAR: Regular rate and rhythm. Normal S1 and S2. LUNGS: Clear to auscultation. ABDOMEN: Soft and nontender. EXTREMITIES: Contracted. No edema. VASCULAR: Diminished pulses. LABORATORY DATA: Reviewed and notable for hemoglobin of 11.3 and creatinine 0.68. MEDICATIONS: Reviewed. TELEMETRY MONITORING: Revealed normal sinus rhythm. IMPRESSION 1. Scx-ZQ-nolmbvcsr myocardial infarction. 2. Anemia. 3. Hematuria. 4. Colovesicular fistula. 5. History of cerebrovascular accident. RECOMMENDATIONS: Continue current cardiovascular medications. She is mildly hypertensive, and we will initiate amlodipine. Her hemoglobin appears to remain stable. Treatment for her hematuria and colovesicular fistula per primary and surgical teams. If permitted by surgical team, would recommend reinitiation of aspirin. The patient may warrant conventional coronary angiography prior to discharge given her xpy-CX-zgzygvwht myocardial infarction. Job#: [id number]
[2018-03-06] MEDS: COLLAGENASE OINTMENT 30 GM TUBE TP SCH (11:44)
[2018-03-06] MEDS: TIZANIDINE HCL 4 MG TAB PO PRN (13:14)
--- NOTE | 2018-03-06 14:46 | Progress Note ---
DATE: March 06, 2018 MEDICINE PROGRESS NOTE SUBJECTIVE: The patient is doing well today with no complaints. . It was discussed with the patient concerns of her having her go to the jail in which she will get surgical intervention in the future. I discussed this case with cardiology and recommends the patient having heart cath prior to discharge, which will be arranged on Sunday. OBJECTIVE VITAL SIGNS: Temperature 96.2, pulse 74, respiratory rate 18, blood pressure 147/89, pulse ox 98% on room air. LAB FINDINGS: White count 6.3, hemoglobin 11.3, hematocrit 35, platelets 413,000. Microbiology: Urine cultures no growth. IMAGING STUDIES: None. PHYSICAL EXAMINATION GENERAL: Not in acute distress. Alert and oriented times 3. Cooperative on examination. HEENT: Head is normocephalic and atraumatic. Eyes: Pupils are equal and reactive to light bilaterally. Extraocular muscles intact bilaterally. NECK: Supple. Good range of motion. THROAT: No evidence of any erythema or exudates in the posterior pharynx. Has poor dentition. PULMONARY: Clear to auscultation bilaterally. No wheezing. No rales. No rhonchi. No crackles appreciated. CARDIOVASCULAR: Positive S1 and S2. No murmurs, rubs or gallops appreciated. ABDOMEN: Soft, nondistended and nontender to palpation. Bowel sounds present. MUSCULOSKELETAL: Strength is 5/5 throughout. No evidence of any muscle deficit on examination. No weakness appreciated. NEUROLOGICAL: Cranial nerves II through XII are grossly intact. No evidence of any neurological deficits on exam. SKIN: Intact. Warm to touch. Good cap refill. PSYCHIATRIC: Normal affect and mood. EXTREMITIES: No edema. Good range of motion throughout. IMPRESSION AND RECOMMENDATIONS 1. 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 A CT cystogram showing evidence of a colovesicular fistula -- urology and general surgery are following, will need heart cath on Sunday. She will likely be [facility]. 2. Tnc-CU-oqmuwje elevation myocardial infarction: Continue with cardioprotective meds and antiplatelets, cardiology following, will have a heart cath on Sunday after discussing this case with cardiology. 3. Sepsis with leukocytosis: Her cultures were all negative. Continue IV antibiotics for now. 4. Right upper extremity swelling: Venous Doppler was not performed and so it was ordered yesterday. Will await for that final result. 5. History of cerebrovascular accident with residual left-sided weakness, at baseline. 6. Type-2 diabetes, stable: Continue with Lantus and insulin sliding scale. 7. Bilateral heel ulceration: Wound care eval. 8. Prophylaxis: SCDs. 9. Fluid, electrolytes and nutrients: Continue with regular diet. 10. Physical therapy and occupational therapy to evaluate and treat. 11. Disposition: Inpatient urology and cardiology are following and so is general surgery. 12. Discharge planning: Will await findings from general surgery, but it seems that the patient can likely be discharged with a Peraza catheter and be monitored there. Eventually, she will be transferred back to the surgeon at a later date. Discussed with cardiology, and the patient will need a left heart catheterization which will likely occur on Sunday prior to discharge. Job#: [id number] GH
[2018-03-06] MEDS: CITALOPRAM HYDROBROMIDE 20 MG TAB PO SCH (21:28)
[2018-03-06] MEDS: ATORVASTATIN 10 MG TAB PO SCH (21:28)
[2018-03-07] VITALS (7 sets, daily range): BP systolic 109–177; BP diastolic 57–80
[2018-03-07] MEDS: HYDRALAZINE HCL 20 MG/ML VIAL IV PRN (05:45)
[2018-03-07] MEDS: DOCUSATE SODIUM 100 MG CAP PO SCH (08:46)
[2018-03-07] MEDS: CEFTRIAXONE SOD 1 GM VIAL IV SCH (08:46)
[2018-03-07] MEDS: BISACODYL 5 MG TAB EC PO SCH (08:46)
[2018-03-07] MEDS: METOPROLOL TARTRATE 25 MG TAB PO SCH ×2 (08:46→17:14)
[2018-03-07] MEDS: GABAPENTIN 300 MG CAP PO SCH ×2 (08:46→22:22)
[2018-03-07] MEDS: FERROUS SULFATE 325 MG TAB PO SCH ×2 (08:46→17:14)
[2018-03-07] MEDS: SENNOSIDES 8.6 MG TAB PO SCH (08:46)
[2018-03-07] MEDS: CYANOCOBALAMIN 1,000 MCG TAB PO SCH (08:46)
[2018-03-07] MEDS: COLLAGENASE OINTMENT 30 GM TUBE TP SCH (08:46)
--- NOTE | 2018-03-07 10:44 | Progress Note ---
DATE: March 07, 2018 MEDICINE PROGRESS NOTE SUBJECTIVE: Patient currently doing well with no complaints. Scheduled for a left heart cath tomorrow. OBJECTIVE VITAL SIGNS: Temperature is 96.9, pulse 106, respiratory rate is 18, blood pressure 143/71, pulse ox 96% on room air. LAB FINDINGS: None. PHYSICAL EXAMINATION GENERAL: Not in acute distress. Alert and oriented x3, cooperative on examination. HEENT: Head: Normocephalic, atraumatic. Eyes: Pupils equal, round, reactive to light bilaterally. Extraocular movements are intact bilaterally. Throat: No evidence of any erythema or exudates in the posterior pharynx. Has poor dentition. NECK: Supple with good range of motion. PULMONARY: Clear to auscultation bilaterally. No wheezing, no rales, no rhonchi, no crackles appreciated. CARDIOVASCULAR: Positive S1 and S2. No murmurs, rubs, or gallops appreciated. ABDOMEN: Soft, nondistended, nontender to palpation. Bowel sounds present. MUSCULOSKELETAL: Strength is 5/5 throughout. No evidence of any musculoskeletal deficit on examination. No weakness appreciated. NEUROLOGICAL: Cranial nerves II through XII are grossly intact. No evidence of any neurological deficit on exam. SKIN: Intact. Warm to touch. Good capillary refill. PSYCHIATRIC: Normal affect and mood. EXTREMITIES: No edema. Good range of motion throughout. IMPRESSION 1. Gross hematuria with unknown etiology, status post cystoscopy that showed double diverticulum with status post CT cystogram showed evidence of a colovesical fistula. General surgery and neurology are following. They agreed to be discharged back to follow up in their office. 2. Non-ST elevation myocardial infarction-she is on cardioprotective meds, antiplatelets. Cardiology following. Discussed with cardiology to have heart cath tomorrow, 03/08/2018. 3. Sepsis with leukocytosis. All cultures have been negative. Continue with IV antibiotics for now. 4. Right upper extremity swelling. Venous Doppler was not performed yesterday. Awaiting final results. 5. History of cerebrovascular accident in the past with residual left-sided weakness at baseline. 6. Type 2 diabetes, stable. Continue with Lantus and insulin sliding scale. 7. Bilateral heel ulceration. Continue with wound care. 8. Prophylaxis sequential compression devices. 9. Fluid, electrolytes, nutrients-continue with regular diet. 10. Physical therapy and occupational therapy to evaluate and treat. 11. Disposition-inpatient urology, cardiology, and general surgery are all following. 12. Discharge planning: Once the patient has a left heart cath, likely tomorrow, she could be discharged back to her [facility] and follow up as an outpatient with urology and general surgery. Job#: [id number] LPA
[2018-03-07] MEDS: SODIUM CHLORIDE 0.9% 1000ML 1,000 ML IV SCH (11:42)
[2018-03-07] MEDS: HYDROCODONE/APAP 5MG-325MG TAB PO PRN (13:50)
--- NOTE | 2018-03-07 18:43 | Progress Note ---
DATE: March 07, 2018 CARDIOLOGY PROGRESS NOTE SUBJECTIVE: No major events overnight. No shortness of breath or chest pain. OBJECTIVE VITAL SIGNS: Temperature 98.1, pulse 91, respiratory rate 18, blood pressure 132/64, and satting 98% on room air. GENERAL: female, in no acute distress. Left-sided contractures. CARDIOVASCULAR: Regular rate and rhythm. Holosystolic murmur at the base. Palpable carotid pulses. Palpable radial pulses. No lower extremity edema or varicosities. No ulcers. LUNGS: Clear to auscultation. ABDOMEN: Soft, nontender. No masses. NEURO AND PSYCH: Alert and oriented to person, place, and time. Normal affect. LABORATORY DATA: Reviewed. MEDICATIONS: Reviewed. TELEMETRY DATA: Reviewed shows normal sinus rhythm. ASSESSMENT 1. Non-ST elevation myocardial infarction. 2. Anemia. 3. Hematuria. 4. Colovesicular fistula. 5. History of cerebrovascular accident with left-sided contractures RECOMMENDATIONS: Continue current cardiovascular medications. Hematuria has now resolved. Treatment per urology and primary team. Please resume aspirin and if permitted, start Plavix for her recent non-STEMI. Patient's left hand is contractured right over where her heart would be if angiography is performed as she is currently stable. She is not a good candidate for coronary angiography or intervention given difficulty with fluoroscopy as her hand is in the way. Recommend managing with dual-antiplatelet therapy as well as high-intensity statin. Thank you for this consult. Will continue to follow. Job#: [id number] NUZHAT
[2018-03-07] MEDS: INSULIN DETEMIR 100 UNIT/ML PEN SQ SCH (22:00)
[2018-03-07] MEDS: CITALOPRAM HYDROBROMIDE 20 MG TAB PO SCH (22:22)
[2018-03-07] MEDS: ATORVASTATIN 10 MG TAB PO SCH (22:22)
[2018-03-07] MEDS: TIZANIDINE HCL 4 MG TAB PO PRN (22:28)
[2018-03-08] VITALS: BP_SYST 123; BP_SYST 133; BP_DIAS 63; BP_DIAS 75
[2018-03-08 04:00] VITALS: BP 127/66
[2018-03-08 04:49] LABS: BASOPHILS % 0.6 % (0.0-1.0); EOSINOPHILS # (AUTO) 0.2 (0.0-0.4); EOSINOPHILS % 3.1 % (0.0-6.0); HEMATOCRIT 28.7 % (34.2-44.1); HEMOGLOBIN 9.3 g/dL (12.0-16.0); LYMPHOCYTES # (AUTO) 1.9 (1.0-3.2); LYMPHOCYTES % 26.8 % (18.0-39.1); MEAN CORPUSCULAR HEMOGLOBIN 25.9 pg (28-32); MEAN CORPUSCULAR HGB CONC 32.4 g/dL (31-35); MEAN CORPUSCULAR VOLUME 79.9 fL (81-99); MONOCYTES # (AUTO) 0.5 (0.2-0.8); MONOCYTES % 7.2 % (4.4-11.3); NEUTROPHILS # (AUTO) 4.4 (2.1-6.9); NEUTROPHILS % 62.2 % (38.7-80.0); PLATELET COUNT 314 x10e3/uL (140-360); RED BLOOD COUNT 3.59 x10e6/uL (3.6-5.1); RED CELL DISTRIBUTION WIDTH 16.6 % (11.7-14.4)
[2018-03-08 05:09] LABS: BLOOD UREA NITROGEN 8 mg/dL (7-26); BUN/CREATININE RATIO 16 (6-25); CARBON DIOXIDE 20 mmol/L (22-29); CHLORIDE 115 mmol/L (98-107); CREATININE, SERUM 0.51 mg/dL (0.57-1.11); EST GLOMERULAR FILTRATION RATE > 60 ML/MIN (60-); GLUCOSE 107 mg/dL (74-118); SODIUM 141 mmol/L (136-145)
[2018-03-08 05:19] LABS: CALCIUM 7.4 mg/dL (8.4-10.2)
[2018-03-08 08:00] VITALS: BP 132/63
[2018-03-08] MEDS: SENNOSIDES 8.6 MG TAB PO SCH (09:00)
[2018-03-08] MEDS: BISACODYL 5 MG TAB EC PO SCH (09:00)
[2018-03-08 10:10] VITALS: BP 132/63
[2018-03-08] MEDS: DOCUSATE SODIUM 100 MG CAP PO SCH (10:26)
[2018-03-08] MEDS: FERROUS SULFATE 325 MG TAB PO SCH (10:27)
[2018-03-08] MEDS: GABAPENTIN 300 MG CAP PO SCH (10:27)
[2018-03-08] MEDS: METOPROLOL TARTRATE 25 MG TAB PO SCH (10:27)
[2018-03-08] MEDS: CYANOCOBALAMIN 1,000 MCG TAB PO SCH (10:28)
[2018-03-08] MEDS ORDERED: POTASSIUM CHLORIDE 20 MEQ TAB CR PO ONE (11:00)
[2018-03-08 12:00] VITALS: BP 134/67
--- NOTE | 2018-03-08 12:33 | Progress Note ---
DATE: March 08, 2018 CARDIOLOGY PROGRESS NOTE SUBJECTIVE: No major events overnight. No chest pain or shortness of breath. OBJECTIVE VITAL SIGNS: Temperature 97.4, pulse 79, respiratory rate 18, blood pressure 132/63, satting 97% on 2 liters nasal cannula. GENERAL: female in no acute distress. CARDIOVASCULAR: Regular rate and rhythm. No murmurs, rubs or gallops. LUNGS: Clear to auscultation bilaterally. No respiratory distress. ABDOMEN: Soft, nontender. No masses. NEURO AND PSYCH: Alert and oriented to person, place, and time. Normal affect. LABORATORY DATA: Reviewed. MEDICATIONS: Reviewed. TELEMETRY DATA: Reviewed, shows normal sinus rhythm. ASSESSMENT AND PLAN 1. Uwn-ZX-jgckiovyk myocardial infarction. 2. Anemia. 3. Hematuria. 4. Colovesicular fistula. 5. History of cerebrovascular accident with left-sided contractures. RECOMMENDATIONS: Continue medical therapy of non-STEMI with aspirin and Plavix. Patient's echocardiogram shows normal LV function. Given difficulties with performing cardiac catheterization due to her contractured left arm overlying her heart making fluoroscopy difficult, will defer invasive management at this time. Patient will be at moderate risk for perioperative events for moderate risk surgery if she requires surgery for her colovesicular fistula. Thank you for this consult. Will continue to follow. Job#: [id number] MYRTLE
[2018-03-08] MEDS: HYDROCODONE/APAP 5MG-325MG TAB PO PRN (14:45)
--- NOTE | 2018-03-08 15:49 | Discharge Summary ---
FINAL DISCHARGE DIAGNOSES 1. Gross hematuria status post cystoscopy that showed double diverticula and also evidence of a colovesicular fistula seen on computed tomography cystogram. 2. Bhq-DY-dgmqajslw myocardial infarction--cleared by Cardiology for discharge. 3. Sepsis with leukocytosis, ruled out. 4. Right upper extremity swelling--no evidence of any deep vein thrombosis. 5. History of cerebrovascular accident with residual left-sided weakness at baseline. 6. Type 2 diabetes. 7. Bilateral heel ulcerations. CONSULTANTS 1. Cardiology. 2. Urology. 3. General Surgery. VITAL SIGNS: Temperature is 97.5, pulse is 82, respiratory rate is 18, blood pressure 127/66, pulse ox 97% on room air. LAB FINDINGS: Show white count is 7.1, hemoglobin 9.3, hematocrit is 28.7, platelets of 314. CHEMISTRY: Sodium 141, potassium 3, chloride 115, bicarb is 20, anion gap of 9, BUN is 8, creatinine is 0.51, calcium is 7.4. LFTs were normal. Troponin on admission peaked at 7.9. Albumin 3.3. Urinalysis concerning for UTI, but urine culture was found to be negative. IMAGING STUDIES: CT abdomen and pelvis showed an increased density within the lumen of the urinary bladder, differential concerning for either blood clot or neuro bladder. Calices are normal with mild bilateral hydroureter nephrosis. CT pelvis cystogram shows colovesicular fistula involving the right lateral aspect of the bladder such as sigmoid colon. There is a small focus lytic lucency in the left iliac bone which is nonspecific. HOSPITAL COURSE: This is a 58-year-old female with known history of CVA with left-sided residual weakness, who comes into the ED with complaints of underlying gross hematuria from the assisted. Patient is a resident of the assisted. Patient has been having the gross hematuria 1 day prior to arrival to the ED. Patient was admitted, and Urology was consulted. Patient required blood transfusions while here in the hospital. Patient then developed NSTEMI in which Cardiology was consulted. Due to the fact that the patient had gross hematuria, the patient was not on any heparin drip, instead was on cardioprotective meds including aspirin and Plavix. A 2-D echo showed an EF of 60% to 65%. Patient underwent cystoscopy, found to have a double diverticula in which a CT cystogram was performed and showed evidence of a colovesicular fistula. Urology recommended general surgery consultation. per General Surgery, the patient will need to come back as an outpatient with Urology and General Surgery to co-manage together in the OR to operate on this particular colovesicular fistula. Patient reports that she was aware of this in the past but had not addressed this issue before. I discussed the case with Cardiology about clearance because of the fact that she could not get a left heart cath due to contraction. At this time he is going to clear the patient for a procedure and that she is probably going to be a moderate risk for surgery. The patient will be discharged on oral medications of cardioprotective medicines of aspirin and Plavix. Patient was also being treated for sepsis with leukocytosis, but all cultures were negative and it was ruled out. She also had right upper extremity swelling which was negative for any DVT. She also has a history of CVA in the past with residual left-sided weakness. She also has bilateral heel ulcerations in which she will follow up as an outpatient with Wound Care. Her diabetes was well managed and controlled, and she worked with PT and OT. On the day of discharge, vital signs stable, labs reviewed and stable. Patient seen and evaluated and examined thoroughly on the day of discharge with no other complaints. Patient verbalized understanding and agreed with the plan of care, to follow up accordingly as an outpatient with the primary care physician in 1 week and Urology and General Surgery in their offices in 1 week's time, Cardiology in 2 weeks' time. MEDICATIONS: See med reconciliation form including Plavix 75 mg 1 tab p.o. daily, lisinopril 2.5 mg p.o. daily, Lipitor 40 mg daily. DISPOSITION: To the assisted. CONDITION: Stable. DIET: Heart healthy. In the event of any worsening symptoms, the patient advised to come back to the ED for further evaluation. Discharge summary took greater than 35 minutes. RON KIM MD Job#: [id number] EV
--- NOTE | 2018-03-08 16:12 | Discharge Summary ---
ADDENDUM The patient on imaging studies was found to have a lytic lesion on CT pelvis. She was found to have a small focal lytic lesion seen on the left iliac bone which is nonspecific. Because of that, I recommended to the family and the patient to follow up as an outpatient with an oncologist. At that time, she may likely need a bone scan to totally evaluate. The patient verbalized understanding and will follow up accordingly as an outpatient RON KIM MD Job#: [id number] GH
== END 2018-03-08 16:43 | DRG 698 ==
LOC: ER 08:02 → ERHOLD 12:48 → MED/SURG2 13:22
PROVIDERS: ADMIT Internal Medicine; ATTEND Internal Medicine
PROC: 30233N1 Transfusion of Nonautologous Red Blood Cells into Peripheral Vein, Percutaneous Approach (ICD-10-PCS; principal; 2018-03-02)
PROC: 0T788ZZ Dilation of Bilateral Ureters, Via Natural or Artificial Opening Endoscopic (ICD-10-PCS; 2018-03-05)
PROC: BT141ZZ Fluoroscopy of Kidneys, Ureters and Bladder using Low Osmolar Contrast (ICD-10-PCS; 2018-03-05)
DX: N32.1 Vesicointestinal fistula (principal); I21.4 Non-ST elevation (NSTEMI) myocardial infarction; D62 Acute posthemorrhagic anemia; I69.354 Hemiplegia and hemiparesis following cerebral infarction affecting left non-dominant side; N17.9 Acute kidney failure, unspecified; L97.428 Non-pressure chronic ulcer of left heel and midfoot with other specified severity; L97.418 Non-pressure chronic ulcer of right heel and midfoot with other specified severity; R31.0 Gross hematuria; I25.10 Atherosclerotic heart disease of native coronary artery without angina pectoris; L89.629 Pressure ulcer of left heel, unspecified stage; L89.619 Pressure ulcer of right heel, unspecified stage; Z95.1 Presence of aortocoronary bypass graft; Z87.891 Personal history of nicotine dependence; E83.51 Hypocalcemia; M89.9 Disorder of bone, unspecified; E11.621 Type 2 diabetes mellitus with foot ulcer; Z79.4 Long term (current) use of insulin
CPT/HCPCS: 36415; 51700; 51703; 72193; 74177; 74420; 80048; 80053; 81001; 82550; 82553; 82948; 84484; 85025; 86850; 86900; 86920; 87086; 93005; 93306; 93970; 96361; 99284; J0360; J0696; J1100; J1940; J2001; J2060; J2270; J2405; J7030; J7040; J7050; P9016; Q9967

== ENCOUNTER → 2018-10-28 | Outpatient (CLI) | payer MEDICARE, OTHER ==
[~2018-10-28] MED LIST changes: +ACETAMINOPHEN325 M1 PO; +ASPIR 8181 MG PO; +B-121000 MCG PO; +BACLOFEN10 MG PO; +BISACODYL5 MG PR; +CELEXA10 MG PO; +DIATRIZOATE MEGL/DIATRIZOA SOD 30 ML BTL PO ONE; +DOCUSATE SODIU100 MG PO; +FERROUS SULFAT325 MG PO; +IOPAMIDOL 370 MG/ML 200 ML INFUS..BTL INJ ONE; +LANTUS 3ML100 UNITS/ SQ; +LIPITOR20 MG PO; +NEURONTIN300 MG PO; +NEURONTIN400 MG PO; +SENNA LAX8.6 MG PO; +TIZANIDINE HCL4 MG PO
--- NOTE | 2018-10-28 15:09 | Diagnostic Imaging Report ---
EXAM: CT Pelvis WITH intravenous contrast INDICATION: Hematuria, urinary retention COMPARISON: CT abdomen and pelvis of 03/01/2018 TECHNIQUE: The pelvis was scanned utilizing a multidetector helical scanner from the level of the aortic bifurcation to the pubic symphysis after administration of IV contrast. Coronal and sagittal reformations were obtained. Routine protocol was performed. Scan was performed when during late arterial phase. IV CONTRAST: 100 mL of Isovue-370 ORAL CONTRAST: Gastrografin COMPLICATIONS: None RADIATION DOSE: Total DLP: 332.39 mGy*cm Dose modulation, iterative reconstruction, and/or weight based adjustment of the mA/kV was utilized to reduce the radiation dose to as low as reasonably achievable. FINDINGS: PELVIC ORGANS/BLADDER: Peraza catheter terminates in the decompressed bladder. PERITONEUM / RETROPERITONEUM: Trace free fluid in the pelvis. LYMPH NODES: No lymphadenopathy. VESSELS: Diffuse atherosclerotic calcifications of the distal abdominal aorta and major branches. At least short segment occlusion at the proximal left superficial femoral artery. GI TRACT: No distention or wall thickening. Normal appendix. BONES AND SOFT TISSUES: Severe degenerative changes of the lower lumbar spine, most notably at L4-5 where there is severe disc space narrowing and osteophyte formation extending posteriorly, likely causing some element of spinal canal stenosis. IMPRESSION: Peraza catheter terminates in the decompressed bladder. Trace free fluid in the pelvis. Severe atherosclerotic disease involving aortoiliac and major branches. At least short segment total occlusion of the left superficial femoral artery. Severe lower lumbar spine degenerative changes Signed by: Susan Yates MD on 10/28/2018 3:06 PM
== END ==
LOC: CT 12:14
PROVIDERS: ATTEND Urology
DX: R31.0 Gross hematuria (principal); R33.9 Retention of urine, unspecified
CPT/HCPCS: 72193; Q9967

== ENCOUNTER → 2019-03-04 | Outpatient (CLI) | payer MEDICARE, OTHER ==
[~2019-03-04] MED LIST changes: -DIATRIZOATE MEGL/DIATRIZOA SOD 30 ML BTL PO ONE; +SODIUM CHLORIDE 0.9% 50ML 50 ML ONE
--- NOTE | 2019-03-04 13:08 | Diagnostic Imaging Report ---
EXAM: CT Pelvis with IV contrast INDICATION: Diverticulum of bladder COMPARISON: CT of the pelvis dated 10/28/2018, CT of the abdomen and pelvis dated 02/19/2019 TECHNIQUE: The pelvis was scanned utilizing a multidetector helical scanner from the level of the aortic bifurcation to the pubic symphysis after administration of IV contrast. Coronal and sagittal reformations were obtained. Routine protocol was performed. Scan was performed when during late arterial phase. Dose modulation, iterative reconstruction, and/or weight based adjustment of the mA/kV was utilized to reduce the radiation dose to as low as reasonably achievable. FINDINGS: The bladder is decompressed by a Peraza catheter. The uterus is surgically absent. The visualized portions of the large small bowel are nondistended. No bowel wall thickening is appreciated. There are scattered colonic diverticula without evidence of acute diverticulitis. No enlarged pelvic lymph nodes are identified. No pelvic free fluid is present. There are degenerative changes of the lumbar spine which are most pronounced at L4-L5. IMPRESSION: 1. The urinary bladder is decompressed by Peraza catheter. 2. Colonic diverticulosis without evidence of acute diverticulitis. 3. Degenerative changes of the lumbar spine. Signed by: Vinicius Currie MD on 03/04/2019 1:04 PM
== END ==
LOC: CT 09:43
PROVIDERS: ATTEND Urology
DX: N32.3 Diverticulum of bladder (principal)
CPT/HCPCS: 72193; Q9967

== ENCOUNTER → 2019-06-25 | Day surgery (SDC) | payer MEDICARE, OTHER ==
[~2019-06-25] MED LIST changes: +AMPICILLIN SOD INJ ONE; +B&O 60MG R/S 60 MG SUPP PR ONE; +CLOPIDOGREL75 MG PO; +DEXAMETHASONE SOD PHOS INJ 4 MG/ML VIAL ONE; +GENTAMICIN 80MG/NS 100 ML 200 ML IV ONE; +HUMULIN R100 UNIT/2; +INSULIN REGULAR, HUMAN 100 UNIT/1 ML 3ML VIAL ONE; +IOPAMIDOL 300MG/ML 50ML INFUS..BTL IV ONE; -IOPAMIDOL 370 MG/ML 200 ML INFUS..BTL INJ ONE; +LEVOTHYROXINE50 MCG PO; +LEXAPRO10 MG PO; +LIDOCAINE HCL 2% LOCAL INJ 5 ML SDV VIAL INJ ONE; +METFORMIN HCL500 MG PO; +MIDODRINE HCL2.5 MG PO; +MULTIVITAMINS1 EAC7; +ONDANSETRON HCL INJ 2MG/ML 2ML 2 MG/ML VIAL ONE; +ONDANSETRON ODT8 MG; +PROPOFOL IV EMULSION 10 MG/ML 20 ML VIAL ONE; +SEVOFLURANE INHAL SOLN 250 ML PEN BTL ONE; -SODIUM CHLORIDE 0.9% 50ML 50 ML ONE; +SODIUM CHLORIDE 0.9% INJ ONE; +TRADJENTA5 MG; +TYLENOL WITH C1 EACH PO; +VITD
[2019-06-25 09:15] LABS: BASOPHILS % 0.5 % (0.0-1.0); EOSINOPHILS # (AUTO) 0.2 (0.0-0.4); EOSINOPHILS % 3.2 % (0.0-6.0); HEMOGLOBIN 11.9 g/dL (12.0-16.0); LYMPHOCYTES # (AUTO) 1.6 (1.0-3.2); LYMPHOCYTES % 26.9 % (18.0-39.1); MEAN CORPUSCULAR HEMOGLOBIN 30.3 pg (28-32); MEAN CORPUSCULAR VOLUME 86.5 fL (81-99); MONOCYTES # (AUTO) 0.4 (0.2-0.8); MONOCYTES % 7.3 % (4.4-11.3); NEUTROPHILS # (AUTO) 3.7 (2.1-6.9); NEUTROPHILS % 61.9 % (38.7-80.0); PLATELET COUNT 187 x10e3/uL (140-360); RED BLOOD COUNT 3.93 x10e6/uL (3.6-5.1); RED CELL DISTRIBUTION WIDTH 12.5 % (11.7-14.4)
[2019-06-25 09:34] LABS: ANION GAP 10.9 mmol/L (8-16); BLOOD UREA NITROGEN 13 mg/dL (7-26); BUN/CREATININE RATIO 19 (6-25); CARBON DIOXIDE 27 mmol/L (22-29); CHLORIDE 106 mmol/L (98-107); CREATININE, SERUM 0.69 mg/dL (0.57-1.11); EST GLOMERULAR FILTRATION RATE > 60 ML/MIN (60-); GLUCOSE 228 mg/dL (74-118); POTASSIUM 3.9 mmol/L (3.5-5.1); SODIUM 140 mmol/L (136-145)
[2019-06-25 14:10] VITALS: BP 150/98
--- NOTE | 2019-07-13 20:06 | Operative Report ---
DATE OF PROCEDURE: 06/25/2019 SURGEON: Yann Hays MD PREOPERATIVE DIAGNOSES: 1. Urinary retention. 2. Bladder diverticulum. 3. Urinary tract infections. 4. Gross hematuria. POSTOPERATIVE DIAGNOSES: 1. Urinary retention. 2. Bladder diverticulum. 3. Urinary tract infections. 4. Gross hematuria. 5. Bladder lesion. 6. Atrophic (senile) vaginitis. TEST PERFORMED: 1. Cystourethroscopy with bilateral ureteral catheterization and retrograde ureteropyelography (separate procedure performed for the urinary tract infections and hematuria). 2. Interpretation of retrograde ureteropyelography. 3. Cystourethroscopy with transurethral resection of small bladder lesion (procedure performed for diagnosis of lesion). 4. Cystotomy and cystostomy (procedure performed to drain the bladder due to the chronic urinary retention). 5. Interpretation of cystography (procedure performed to evaluate the diverticulum previously present). 6. Pelvic examination under anesthesia. ANESTHESIA: General. COMPLICATIONS: None. CLINICAL: Susanna Thompson is a 59-year-old woman with incontinence and neurogenic bladder. She had a large diverticulum and actually had diverticular leak and had a fistula formation from her bladder. The patient has been managed with a chronic Peraza catheter which will begin to road her urethra. The patient was also offered urinary diversion with ileal conduit. She elected to proceed with suprapubic cystostomy, placed in hopes of avoiding any major surgery. She is aware of the risks of bleeding, infection, injury to adjacent structures, need for additional procedures and elected to proceed. OPERATIVE PROCEDURE IN DETAIL: Informed consent was verified. Susanna Thompson was properly identified, taken to the operating room, placed on the cystoscopy table in supine position. Anesthesia was uneventfully begun. The patient was then carefully gently repositioned in dorsal lithotomy position. All pressure points well padded. Her genitalia were prepared and draped in usual sterile fashion. The cystoscope sheath with obturator in place was atraumatically inserted into the patient's urethra and bladder was drained. Panendoscopy of the bladder revealed no suspicious mucosal lesions, no tumors, no stones, and no diverticula. There was a lesion noted on the right side of the bladder that I am not sure is suspicious, but definitely needed evaluation. An 8-Algerian catheter was used to cannulate each ureter and retrograde ureteral pyelograms were performed. Interpretation of retrograde ureteropyelography contrast was instilled in retrograde fashion bilaterally. There were no tumors, no stones, and no diverticula. Unobstructed drainage was observed bilaterally fluoroscopically. Cold cup biopsy forceps were then utilized to biopsy this lesion over in the right side of the bladder. We then utilized Bugbee electrode to fulgurate its base and some surrounding abnormal mucosa. We utilized Yana sound that was custom modified with a transverse hole near its tip and placed in the patient's urethra in utilized to tent up the anterior surface of the bladder towards the abdominal wall. We then made a small incision in the abdominal wall, carried this incision to the fascia. We incised the fascia minimally and then incised the bladder that tented up through it. We then able to pass this down through this hole that we created. We then utilized a heavy suture to attach a Peraza catheter to it. We then guided the Peraza catheter through this channel and through the bladder and out the urethral meatus. The suture was disconnected. The Peraza with allowed to retract into the bladder. We filled the balloon with 10 mL of sterile water, irrigated to and fro to control and work properly replaced the cystoscope, inserted to visualize the fact that there was no bleeding at the cystostomy site and the tube was in good position. The tube was secured to the skin with nylon sutures. We then injected contrast through the tube and performed cystography. Interpretation of cystography, the bladder wall relatively smooth a lot, exhibited some trabeculation. The previous fistula and diverticular type of formation from the right side of the bladder was no longer present. There was a small indentation in the bladder at that point, but it does not seem to be a fistula nor a diverticulum at this time. Pelvic examination under anesthesia revealed atrophic vaginitis. No abnormal palpable pelvic masses could be appreciated. There were no obvious mucosal lesions. The patient was then uneventfully reversed from anesthesia and taken to recovery room in stable condition. There were no complications during the procedure. She tolerated the procedure well. Plans will be to see the patient in the office in 5-6 weeks to change her cystostomy tube. Yann Hays MD OH/MODL /[id number]
== END | disposition home or self-care (01) ==
LOC: OR 08:01
PROVIDERS: ATTEND Urology
DX: N31.9 Neuromuscular dysfunction of bladder, unspecified (principal); N32.3 Diverticulum of bladder; R31.0 Gross hematuria; N95.2 Postmenopausal atrophic vaginitis; N32.9 Bladder disorder, unspecified; N39.0 Urinary tract infection, site not specified; N39.41 Urge incontinence; R33.9 Retention of urine, unspecified; K57.90 Diverticulosis of intestine, part unspecified, without perforation or abscess without bleeding; Z01.810 Encounter for preprocedural cardiovascular examination; Z01.812 Encounter for preprocedural laboratory examination; E11.9 Type 2 diabetes mellitus without complications; I69.354 Hemiplegia and hemiparesis following cerebral infarction affecting left non-dominant side; I10 Essential (primary) hypertension; E78.00 Pure hypercholesterolemia, unspecified
CPT/HCPCS: 36415; 51040; 52234; 74420; 80048; 82948; 85025; 87086; 87186; 88305; 93005; J1100; J1580; J2001; J2405; J2704; Q9967; J1817

== ENCOUNTER → 2020-10-29 | Day surgery (SDC) | payer MEDICARE, OTHER ==
[~2020-10-29] MED LIST changes: -AMPICILLIN SOD INJ ONE; +ASPIRIN81 MG PO; +BOTULINUM TOXIN TYPE A 100 UNIT VIAL IM ONE; +COLACE100 MG PO; +FENTANYL CITRATE/PF 100MCG/2 ML INJ ONE; -INSULIN REGULAR, HUMAN 100 UNIT/1 ML 3ML VIAL ONE; +MAGNESIUM OXID400 MG PO; +MELATONIN3 MG PO; +METOPROLOL TART25 MG PO; +MIDAZOLAM HCL 2 MG/2 ML VIAL ONE; +MIRALAX17 GM PO; -ONDANSETRON ODT8 MG; +ONDANSETRON ODT8 MG PO; +POVIDONE IODINE 0.05% 0.05 % ML PO ONE; +PROTONIX20 MG PO; -SODIUM CHLORIDE 0.9% INJ ONE; +TRAZODONE HCL50 MG PO
[2020-10-29 07:26] LABS: BASOPHILS # (AUTO) 0.1 (0.0-0.1); EOSINOPHILS # (AUTO) 0.3 (0.0-0.4); EOSINOPHILS % 6.5 % (0.0-6.0); HEMATOCRIT 30.7 % (34.2-44.1); HEMOGLOBIN 9.8 g/dL (12.0-16.0); LYMPHOCYTES # (AUTO) 1.4 (1.0-3.2); LYMPHOCYTES % 29.1 % (18.0-39.1); MEAN CORPUSCULAR HEMOGLOBIN 25.8 pg (28-32); MEAN CORPUSCULAR HGB CONC 31.9 g/dL (31-35); MEAN CORPUSCULAR VOLUME 80.8 fL (81-99); MONOCYTES # (AUTO) 0.4 (0.2-0.8); MONOCYTES % 7.5 % (4.4-11.3); NEUTROPHILS # (AUTO) 2.8 (2.1-6.9); NEUTROPHILS % 55.7 % (38.7-80.0); PLATELET COUNT 221 x10e3/uL (140-360); RED CELL DISTRIBUTION WIDTH 15.9 % (11.7-14.4)
[2020-10-29 07:40] LABS: ANION GAP 14.9 mmol/L (8-16); CALCIUM 9.2 mg/dL (8.4-10.2); CREATININE, SERUM 0.79 mg/dL (0.57-1.11); POTASSIUM 3.9 mmol/L (3.5-5.1)
[2020-10-29 10:08] VITALS: BP 127/61
== END | disposition home or self-care (01) ==
LOC: OR 06:44
PROVIDERS: ATTEND Urology
DX: N31.9 Neuromuscular dysfunction of bladder, unspecified (principal); N39.41 Urge incontinence; E11.9 Type 2 diabetes mellitus without complications; I10 Essential (primary) hypertension; E78.00 Pure hypercholesterolemia, unspecified; E78.5 Hyperlipidemia, unspecified; I25.10 Atherosclerotic heart disease of native coronary artery without angina pectoris; I25.2 Old myocardial infarction; G81.94 Hemiplegia, unspecified affecting left nondominant side; N95.2 Postmenopausal atrophic vaginitis; N39.0 Urinary tract infection, site not specified; Z95.5 Presence of coronary angioplasty implant and graft; Z01.810 Encounter for preprocedural cardiovascular examination; Z01.812 Encounter for preprocedural laboratory examination; Z01.818 Encounter for other preprocedural examination; Z93.50 Unspecified cystostomy status; Z79.4 Long term (current) use of insulin; Z79.82 Long term (current) use of aspirin
CPT/HCPCS: 36415; 51710; 52005; 52287; 71046; 74420; 80048; 82948; 85025; 93005; C1758; J0587; J1100; J1580; J2001; J2250; J2405; J2704; J3010; Q9967

== ENCOUNTER → 2021-04-04 | Day surgery (SDC) | payer MEDICARE, OTHER ==
[~2021-04-04] MED LIST changes: -B&O 60MG R/S 60 MG SUPP PR ONE; +BELLADONNA/OPIUM 30 MG SUPP RC ONE; -DEXAMETHASONE SOD PHOS INJ 4 MG/ML VIAL ONE; +EPHEDRINE SULFATE INJ 50 MG/ML VIAL ONE; -GENTAMICIN 80MG/NS 100 ML 200 ML IV ONE; +PIPERACILLIN/TAZOBACTAM 3.375 GM VIAL ONE; +SODIUM CHLORIDE 0.9% 250ML 250 ML ONE; +SODIUM CHLORIDE 0.9% 50ML 50 ML ONE; +Vancomycin IV 1 GM VIAL ONE
[2021-04-04 11:25] VITALS: BP 165/86
== END | disposition home or self-care (01) ==
LOC: OR 08:02
PROVIDERS: ATTEND Urology
DX: N39.41 Urge incontinence (principal); S37.39XA Other injury of urethra, initial encounter; N39.0 Urinary tract infection, site not specified; N95.2 Postmenopausal atrophic vaginitis; N31.9 Neuromuscular dysfunction of bladder, unspecified; N32.3 Diverticulum of bladder; E11.9 Type 2 diabetes mellitus without complications; I10 Essential (primary) hypertension; I25.10 Atherosclerotic heart disease of native coronary artery without angina pectoris; I25.2 Old myocardial infarction; X58.XXXA Exposure to other specified factors, initial encounter; Z46.6 Encounter for fitting and adjustment of urinary device; Z20.822 Contact with and (suspected) exposure to COVID-19; Z79.02 Long term (current) use of antithrombotics/antiplatelets; Z79.82 Long term (current) use of aspirin; Z79.4 Long term (current) use of insulin; Z79.899 Other long term (current) drug therapy; Z95.5 Presence of coronary angioplasty implant and graft; Z86.73 Personal history of transient ischemic attack (TIA), and cerebral infarction without residual deficits; Z87.891 Personal history of nicotine dependence; Z86.16 Personal history of COVID-19; Z85.42 Personal history of malignant neoplasm of other parts of uterus
CPT/HCPCS: 36415; 51705; 52005; 52287; 74420; 82948; 84132; 93005; J0587; J2001; J2250; J2405; J2543; J2704; J3010; J3370; J7050; Q9967; U0002

== ENCOUNTER → 2021-08-26 | Outpatient (CLI) | payer MEDICARE, OTHER ==
[~2021-08-26] MED LIST changes: -BELLADONNA/OPIUM 30 MG SUPP RC ONE; -BOTULINUM TOXIN TYPE A 100 UNIT VIAL IM ONE; +DIATRIZOATE MEGL/DIATRIZOA SOD 30 ML BTL PO ONE; -EPHEDRINE SULFATE INJ 50 MG/ML VIAL ONE; -FENTANYL CITRATE/PF 100MCG/2 ML INJ ONE; -IOPAMIDOL 300MG/ML 50ML INFUS..BTL IV ONE; +IOPAMIDOL 370 MG/ML 100 ML INFUS..BTL INJ ONE; -LIDOCAINE HCL 2% LOCAL INJ 5 ML SDV VIAL INJ ONE; -MIDAZOLAM HCL 2 MG/2 ML VIAL ONE; -ONDANSETRON HCL INJ 2MG/ML 2ML 2 MG/ML VIAL ONE; -PIPERACILLIN/TAZOBACTAM 3.375 GM VIAL ONE; -POVIDONE IODINE 0.05% 0.05 % ML PO ONE; -PROPOFOL IV EMULSION 10 MG/ML 20 ML VIAL ONE; -SEVOFLURANE INHAL SOLN 250 ML PEN BTL ONE; -SODIUM CHLORIDE 0.9% 250ML 250 ML ONE; -SODIUM CHLORIDE 0.9% 50ML 50 ML ONE; -Vancomycin IV 1 GM VIAL ONE
[2021-08-26 13:13] LABS: CREATININE, SERUM 0.78 mg/dL (0.57-1.11)
== END ==
LOC: CT 11:40
PROVIDERS: ATTEND Internal Medicine
DX: R10.2 Pelvic and perineal pain (principal)
CPT/HCPCS: 36415; 74177; 82565; 84520; Q9967

== ENCOUNTER → 2021-09-16 | Day surgery (SDC) | payer MEDICARE ==
[~2021-09-16] MED LIST changes: +BELLADONNA/OPIUM 30 MG SUPP RC ONE; +BOTULINUM TOXIN TYPE A 100 UNIT VIAL IM ONE; +CEFTRIAXONE 1 GM VIAL ONE; +CLOTRIMAZOLE-BE15 GM TOP; +CRANBERRY450 M2 PO; +CYCLOBENZAPRINE10 MG PO; +DEXAMETHASONE SOD PHOS INJ 4 MG/ML SDV ONE; -DIATRIZOATE MEGL/DIATRIZOA SOD 30 ML BTL PO ONE; +ELIQUIS5 MG PO; +FENTANYL CITRATE/PF 100MCG/2 ML INJ ONE; +GENTAMICIN 80MG/NS 100 ML 200 ML IV ONE; -IOPAMIDOL 370 MG/ML 100 ML INFUS..BTL INJ ONE; +IOPAMIDOL 610MG/1ML 300 MG/ML VIAL IV ONE; +LIDOCAINE HCL 2% LOCAL INJ 5 ML SDV VIAL INJ ONE; +ONDANSETRON HCL INJ 2MG/ML 2ML 2 MG/ML VIAL ONE; +OXYBUTYNIN CHLOR5 MG PO; +PHENAZOPYRIDINE HCL 100 MG TAB ONE; +POVIDONE IODINE 0.05% 0.05 % ML PO ONE; +SEVOFLURANE INHAL SOLN 250 ML PEN BTL ONE; +[UNRECOGNIZED DRUG - OTHER] TOP
[2021-09-16 13:15] LABS: BASOPHILS # (AUTO) 0.1 (0.0-0.1); BASOPHILS % 0.7 % (0.0-1.0); EOSINOPHILS # (AUTO) 0.3 (0.0-0.4); EOSINOPHILS % 3.5 % (0.0-6.0); HEMATOCRIT 41.1 % (34.2-44.1); HEMOGLOBIN 13.5 g/dL (12.0-16.0); LYMPHOCYTES # (AUTO) 1.6 (1.0-3.2); LYMPHOCYTES % 18.9 % (18.0-39.1); MEAN CORPUSCULAR HEMOGLOBIN 28.5 pg (28-32); MEAN CORPUSCULAR HGB CONC 32.8 g/dL (31-35); MEAN CORPUSCULAR VOLUME 86.9 fL (81-99); MONOCYTES # (AUTO) 0.6 (0.2-0.8); MONOCYTES % 7.6 % (4.4-11.3); NEUTROPHILS # (AUTO) 5.7 (2.1-6.9); NEUTROPHILS % 69.1 % (38.7-80.0); PLATELET COUNT 234 x10e3/uL (140-360); RED BLOOD COUNT 4.73 x10e6/uL (3.6-5.1); RED CELL DISTRIBUTION WIDTH 13.4 % (11.7-14.4)
[2021-09-16 13:28] LABS: ANION GAP 19.6 mmol/L (8-16); CALCIUM 10.2 mg/dL (8.4-10.2); CREATININE, SERUM 0.79 mg/dL (0.57-1.11); POTASSIUM 4.6 mmol/L (3.5-5.1)
[2021-09-16 16:10] VITALS: BP 148/81
== END | disposition home or self-care (01) ==
LOC: OR 12:15
PROVIDERS: ATTEND Urology
DX: N39.41 Urge incontinence (principal); N39.0 Urinary tract infection, site not specified; Z43.5 Encounter for attention to cystostomy; N31.9 Neuromuscular dysfunction of bladder, unspecified; N32.3 Diverticulum of bladder; N95.2 Postmenopausal atrophic vaginitis; N32.89 Other specified disorders of bladder; E11.9 Type 2 diabetes mellitus without complications; I10 Essential (primary) hypertension; E78.5 Hyperlipidemia, unspecified; I25.10 Atherosclerotic heart disease of native coronary artery without angina pectoris; I25.2 Old myocardial infarction; I95.9 Hypotension, unspecified; G81.94 Hemiplegia, unspecified affecting left nondominant side; G89.29 Other chronic pain; G62.9 Polyneuropathy, unspecified; F41.9 Anxiety disorder, unspecified; F32.A Depression, unspecified; K21.9 Gastro-esophageal reflux disease without esophagitis; E03.9 Hypothyroidism, unspecified; Z20.822 Contact with and (suspected) exposure to COVID-19; Z79.02 Long term (current) use of antithrombotics/antiplatelets; Z79.4 Long term (current) use of insulin; Z79.899 Other long term (current) drug therapy; Z89.512 Acquired absence of left leg below knee; Z95.5 Presence of coronary angioplasty implant and graft; Z86.73 Personal history of transient ischemic attack (TIA), and cerebral infarction without residual deficits
CPT/HCPCS: 36415; 51705; 52005; 52287; 74420; 80048; 82948; 85025; 93005; C1758; J0587; J0696; J1100; J1580; J2001; J2405; J3010; Q9967; U0002

== ENCOUNTER 2022-08-15 14:21 | Inpatient (IN) | payer MEDICARE, OTHER ==
[~2022-08-15] VITALS: Ht 177.8 cm; Wt 65.8 kg
[~2022-08-15 14:21] MED LIST changes: -BELLADONNA/OPIUM 30 MG SUPP RC ONE; +BENZONATATE100 MG PO; -BOTULINUM TOXIN TYPE A 100 UNIT VIAL IM ONE; -CEFTRIAXONE 1 GM VIAL ONE; +EPHEDRINE SULFATE INJ 50 MG/ML VIAL ONE; -FENTANYL CITRATE/PF 100MCG/2 ML INJ ONE; -GENTAMICIN 80MG/NS 100 ML 200 ML IV ONE; -IOPAMIDOL 610MG/1ML 300 MG/ML VIAL IV ONE; -PHENAZOPYRIDINE HCL 100 MG TAB ONE; +PROPOFOL IV EMULSION 10 MG/ML 20 ML VIAL ONE
[2022-08-15] MEDS ORDERED: SODIUM CHLORIDE 0.9% 1000ML 1,000 ML IV STA (14:37)
[2022-08-15] MEDS ORDERED: ACETAMINOPHEN 325 MG TAB PO ONE (14:45)
[2022-08-15] MEDS ORDERED: ASPIRIN 81 MG CHEW TAB PO ONE (14:45)
[2022-08-15 15:04] LABS: BASOPHILS # (AUTO) 0.1 (0.0-0.1); BASOPHILS % 0.4 % (0.0-1.0); EOSINOPHILS # (AUTO) 0.1 (0.0-0.4); EOSINOPHILS % 0.8 % (0.0-6.0); HEMATOCRIT 36.7 % (34.2-44.1); HEMOGLOBIN 12.5 g/dL (12.0-16.0); LYMPHOCYTES # (AUTO) 1.8 (1.0-3.2); LYMPHOCYTES % 13.9 % (18.0-39.1); MEAN CORPUSCULAR HEMOGLOBIN 29.3 pg (28-32); MEAN CORPUSCULAR HGB CONC 34.1 g/dL (31-35); MEAN CORPUSCULAR VOLUME 85.9 fL (81-99); MONOCYTES % 7.7 % (4.4-11.3); NEUTROPHILS # (AUTO) 9.8 (2.1-6.9); NEUTROPHILS % 76.9 % (38.7-80.0); PLATELET COUNT 305 x10e3/uL (140-360); RED BLOOD COUNT 4.27 x10e6/uL (3.6-5.1); RED CELL DISTRIBUTION WIDTH 14.3 % (11.7-14.4)
[2022-08-15 15:13] LABS: INR 1.12; PROTHROMBIN TIME 14.9 seconds (11.9-14.5)
[2022-08-15 15:14] LABS: PARTIAL THROMBOPLASTIN TIME 32.8 seconds (23.8-35.5)
[2022-08-15 15:24] LABS: ALBUMIN 4.1 g/dL (3.5-5.0); ALBUMIN/GLOBULIN RATIO 0.9 (0.8-2.0); ANION GAP 18.1 mmol/L (8-16); CALCIUM 9.9 mg/dL (8.4-10.2); CREATININE, SERUM 0.81 mg/dL (0.57-1.11); POTASSIUM 4.1 mmol/L (3.5-5.1)
[2022-08-15] MEDS ORDERED: CEFTRIAXONE 1 GM VIAL IV ONE (15:30)
[2022-08-15 15:31] LABS: CREATINE KINASE MB 1.2 ng/mL (0-5.0)
[2022-08-15 15:39] LABS: CLARITY,URINE TURBID (CLEAR); COLOR,URINE AMBER (YELLOW); KETONES,URINE TRACE (NEGATIVE); LEUKOCYTE ESTERASE ,URINE SMALL (NEGATIVE); NITRITE,URINE NEGATIVE (NEGATIVE); PROTEIN,URINE DIPSTICK >=300 (NEGATIVE); URINE UROBILINOGEN 1 mg/dL (0.2 - 1)
[2022-08-15 15:51] LABS: BACTERIA,URINE MODERATE /HPF; WBC,URINE (MAN) 21-50 /HPF (0-5)
[2022-08-15] MEDS ORDERED: IOPAMIDOL 370 MG/ML 100 ML INFUS..BTL INJ ONE (16:18)
[2022-08-15] MEDS ORDERED: MINERAL OIL 132 ML BTL PR ONE (17:45)
[2022-08-15] MEDS ORDERED: SODIUM CHLORIDE FLUSH 10 ML SYR INJ PRN (17:45)
[2022-08-15] MEDS: SODIUM CHLORIDE 0.9% 1000ML 1,000 ML IV SCH (18:56)
[2022-08-15 20:00] VITALS: BP 129/83; PULSE 87; RESP 18; TEMP 97.4; O2SAT 100
[2022-08-15 21:00] VITALS: BP 129/83; PULSE 87; RESP 18; TEMP 97.4; O2SAT 100
[2022-08-15] MEDS ORDERED: ACETAMINOPHEN-1 EAC4 PO (22:53)
[2022-08-15] MEDS ORDERED: NITROFURANTOIN100 MG PO (22:53)
[2022-08-16] VITALS (8 sets, daily range): BP systolic 103–145; BP diastolic 52–87; PULSE 79–92; RESP 14–21; TEMP 97.5–99.1; O2SAT 97–100
[2022-08-16 05:18] LABS: BASOPHILS % 0.4 % (0.0-1.0); EOSINOPHILS # (AUTO) 0.2 (0.0-0.4); HEMATOCRIT 28.1 % (34.2-44.1); HEMOGLOBIN 9.3 g/dL (12.0-16.0); LYMPHOCYTES # (AUTO) 1.5 (1.0-3.2); LYMPHOCYTES % 16.6 % (18.0-39.1); MEAN CORPUSCULAR HEMOGLOBIN 29.2 pg (28-32); MEAN CORPUSCULAR HGB CONC 33.1 g/dL (31-35); MEAN CORPUSCULAR VOLUME 88.4 fL (81-99); MONOCYTES # (AUTO) 0.7 (0.2-0.8); MONOCYTES % 7.3 % (4.4-11.3); NEUTROPHILS # (AUTO) 6.7 (2.1-6.9); NEUTROPHILS % 73.4 % (38.7-80.0); PLATELET COUNT 207 x10e3/uL (140-360); RED BLOOD COUNT 3.18 x10e6/uL (3.6-5.1); RED CELL DISTRIBUTION WIDTH 14.1 % (11.7-14.4)
[2022-08-16] MEDS: SODIUM CHLORIDE 0.9% 1000ML 1,000 ML IV SCH ×2 (05:25→09:31)
[2022-08-16 05:34] LABS: ALBUMIN 2.9 g/dL (3.5-5.0); ALBUMIN/GLOBULIN RATIO 0.8 (0.8-2.0); ANION GAP 11.7 mmol/L (8-16); CALCIUM 8.4 mg/dL (8.4-10.2); CREATININE, SERUM 0.65 mg/dL (0.57-1.11); POTASSIUM 3.7 mmol/L (3.5-5.1)
[2022-08-16] MEDS ORDERED: ACETAMINOPHEN 325 MG TAB PO PRN (09:00)
[2022-08-16] MEDS ORDERED: DOCUSATE SODIUM 100 MG CAP PO PRN (09:00)
[2022-08-16] MEDS ORDERED: MIDODRINE HCL 5 MG TABLET PO PRN (09:00)
[2022-08-16] MEDS: MAGNESIUM OXIDE 400 MG TAB PO SCH ×2 (09:30→17:12)
[2022-08-16] MEDS: METOPROLOL TARTRATE 25 MG TAB PO SCH ×2 (09:30→20:49)
[2022-08-16] MEDS: OXYBUTYNIN CHLORIDE 5 MG TAB PO SCH ×3 (09:30→20:49)
[2022-08-16] MEDS ORDERED: CLOPIDOGREL BISULFATE 75 MG TAB PO SCH (09:45)
[2022-08-16] MEDS: LEVOTHYROXINE SODIUM 25 MCG TABLET PO SCH (10:30)
[2022-08-16] MEDS: BENZONATATE 100 MG CAP PO SCH ×2 (13:05→17:10)
[2022-08-16] MEDS: TRAZODONE HCL 50 MG TAB PO SCH (20:49)
[2022-08-16] MEDS: ATORVASTATIN 40 MG TAB PO SCH (20:49)
[2022-08-17] VITALS (8 sets, daily range): BP systolic 100–141; BP diastolic 52–84; PULSE 67–85; RESP 16–19; TEMP 97.1–98.5; O2SAT 98–100
[2022-08-17] MEDS: SODIUM CHLORIDE 0.9% 1000ML 1,000 ML IV SCH ×2 (01:09→13:20)
[2022-08-17] MEDS: ACETAMINOPHEN/CODEINE 300MG - 30MG TAB PO PRN (01:20)
[2022-08-17] MEDS: LEVOTHYROXINE SODIUM 25 MCG TABLET PO SCH (05:05)
[2022-08-17] MEDS: BENZONATATE 100 MG CAP PO SCH ×5 (05:08→22:20)
[2022-08-17] MEDS ORDERED: MAGNESIUM HYDROXIDE 30 ML UDC PO PRN (09:15)
[2022-08-17] MEDS: SENNA-S TABLET PO SCH ×2 (09:27→17:14)
[2022-08-17] MEDS: MAGNESIUM OXIDE 400 MG TAB PO SCH ×2 (09:27→17:14)
[2022-08-17] MEDS: OXYBUTYNIN CHLORIDE 5 MG TAB PO SCH ×3 (09:27→22:07)
[2022-08-17] MEDS: METOPROLOL TARTRATE 25 MG TAB PO SCH ×2 (09:27→22:01)
[2022-08-17] MEDS ORDERED: FLUCONAZOLE 200 MG/100 ML 100 ML IV SCH (19:00)
[2022-08-17] MEDS: ATORVASTATIN 40 MG TAB PO SCH (22:00)
[2022-08-17] MEDS: TRAZODONE HCL 50 MG TAB PO SCH (22:00)
[2022-08-18] VITALS (9 sets, daily range): BP systolic 103–147; BP diastolic 46–90; PULSE 68–87; RESP 17–19; TEMP 96.7–98.2; O2SAT 97–100
[2022-08-18] MEDS: SODIUM CHLORIDE 0.9% 1000ML 1,000 ML IV SCH ×2 (02:19→16:33)
[2022-08-18 05:47] LABS: BASOPHILS % 0.7 % (0.0-1.0); EOSINOPHILS # (AUTO) 0.3 (0.0-0.4); EOSINOPHILS % 5.6 % (0.0-6.0); HEMATOCRIT 25.9 % (34.2-44.1); HEMOGLOBIN 8.7 g/dL (12.0-16.0); LYMPHOCYTES # (AUTO) 1.4 (1.0-3.2); LYMPHOCYTES % 25.9 % (18.0-39.1); MEAN CORPUSCULAR HEMOGLOBIN 29.3 pg (28-32); MEAN CORPUSCULAR HGB CONC 33.6 g/dL (31-35); MEAN CORPUSCULAR VOLUME 87.2 fL (81-99); MONOCYTES # (AUTO) 0.4 (0.2-0.8); MONOCYTES % 7.3 % (4.4-11.3); NEUTROPHILS # (AUTO) 3.2 (2.1-6.9); NEUTROPHILS % 60.3 % (38.7-80.0); PLATELET COUNT 196 x10e3/uL (140-360); RED BLOOD COUNT 2.97 x10e6/uL (3.6-5.1); RED CELL DISTRIBUTION WIDTH 14.1 % (11.7-14.4)
[2022-08-18] MEDS: LEVOTHYROXINE SODIUM 25 MCG TABLET PO SCH (05:58)
[2022-08-18 06:11] LABS: ANION GAP 11.7 mmol/L (8-16); CALCIUM 8.2 mg/dL (8.4-10.2); CREATININE, SERUM 0.59 mg/dL (0.57-1.11); POTASSIUM 3.7 mmol/L (3.5-5.1)
[2022-08-18] MEDS: METOPROLOL TARTRATE 25 MG TAB PO SCH ×2 (08:58→20:50)
[2022-08-18] MEDS: OXYBUTYNIN CHLORIDE 5 MG TAB PO SCH ×3 (08:58→20:53)
[2022-08-18] MEDS: MAGNESIUM OXIDE 400 MG TAB PO SCH ×2 (08:59→17:00)
[2022-08-18] MEDS: SENNA-S TABLET PO SCH ×2 (08:59→17:00)
[2022-08-18] MEDS: FLUCONAZOLE 200 MG/100 ML 100 ML IV SCH (09:11)
[2022-08-18] MEDS: BENZONATATE 100 MG CAP PO SCH ×2 (12:00→18:00)
[2022-08-18] MEDS ORDERED: FENTANYL CITRATE/PF 100MCG/2 ML INJ ONE (13:39)
[2022-08-18] MEDS ORDERED: MIDAZOLAM HCL 2 MG/2 ML VIAL ONE (13:39)
[2022-08-18] MEDS ORDERED: IOPAMIDOL 610MG/1ML 300 MG/ML VIAL IV ONE (15:45)
[2022-08-18] MEDS ORDERED: BOTULINUM TOXIN TYPE A 100 UNIT VIAL IM ONE (15:45)
[2022-08-18] MEDS ORDERED: METOPROLOL TARTRATE INJ 1 MG/ML VIAL ONE (17:07)
[2022-08-18] MEDS: ATORVASTATIN 40 MG TAB PO SCH (20:47)
[2022-08-18] MEDS: MELATONIN 5 MG TABLET PO PRN (20:48)
[2022-08-18] MEDS: ACETAMINOPHEN/CODEINE 300MG - 30MG TAB PO PRN (20:48)
[2022-08-18] MEDS: TRAZODONE HCL 50 MG TAB PO SCH (20:48)
[2022-08-19] VITALS (10 sets, daily range): BP systolic 94–143; BP diastolic 45–99; PULSE 68–86; RESP 17–19; TEMP 97.1–97.9; O2SAT 98–100
[2022-08-19] MEDS: BENZONATATE 100 MG CAP PO SCH ×4 (05:13→17:24)
[2022-08-19] MEDS: SODIUM CHLORIDE 0.9% 1000ML 1,000 ML IV SCH ×2 (05:20→18:19)
[2022-08-19] MEDS: ACETAMINOPHEN/CODEINE 300MG - 30MG TAB PO PRN ×3 (05:20→20:57)
[2022-08-19] MEDS: LEVOTHYROXINE SODIUM 25 MCG TABLET PO SCH (05:21)
[2022-08-19] MEDS: MAGNESIUM OXIDE 400 MG TAB PO SCH ×2 (08:12→16:38)
[2022-08-19] MEDS: OXYBUTYNIN CHLORIDE 5 MG TAB PO SCH ×3 (08:13→20:58)
[2022-08-19] MEDS: SENNA-S TABLET PO SCH ×2 (08:13→16:38)
[2022-08-19] MEDS: METOPROLOL TARTRATE 25 MG TAB PO SCH ×2 (08:13→20:58)
[2022-08-19] MEDS: FLUCONAZOLE 200 MG/100 ML 100 ML IV SCH (09:18)
[2022-08-19] MEDS: MELATONIN 5 MG TABLET PO PRN (20:56)
[2022-08-19] MEDS: PHENAZOPYRIDINE HCL 100 MG TAB PO PRN (20:57)
[2022-08-19] MEDS: ATORVASTATIN 40 MG TAB PO SCH (20:57)
[2022-08-19] MEDS: TRAZODONE HCL 50 MG TAB PO SCH (21:00)
[2022-08-20] VITALS (7 sets, daily range): BP systolic 106–130; BP diastolic 58–67; PULSE 61–104; RESP 17–21; TEMP 97.4–98.1; O2SAT 98–100
[2022-08-20] MEDS: BENZONATATE 100 MG CAP PO SCH ×4 (05:18→18:00)
[2022-08-20] MEDS: LEVOTHYROXINE SODIUM 25 MCG TABLET PO SCH (05:20)
[2022-08-20] MEDS: MAGNESIUM OXIDE 400 MG TAB PO SCH ×2 (09:00→16:32)
[2022-08-20] MEDS: FLUCONAZOLE 200 MG/100 ML 100 ML IV SCH (09:14)
[2022-08-20] MEDS: OXYBUTYNIN CHLORIDE 5 MG TAB PO SCH ×3 (09:15→21:28)
[2022-08-20] MEDS: METOPROLOL TARTRATE 25 MG TAB PO SCH ×2 (09:15→21:28)
[2022-08-20] MEDS: SENNA-S TABLET PO SCH ×2 (09:15→16:31)
[2022-08-20] MEDS: PHENAZOPYRIDINE HCL 100 MG TAB PO PRN ×2 (13:55→21:26)
[2022-08-20] MEDS: SODIUM CHLORIDE 0.9% 1000ML 1,000 ML IV SCH ×2 (14:37→21:29)
[2022-08-20] MEDS: ATORVASTATIN 40 MG TAB PO SCH (21:26)
[2022-08-20] MEDS: ACETAMINOPHEN/CODEINE 300MG - 30MG TAB PO PRN (21:26)
[2022-08-20] MEDS: TRAZODONE HCL 50 MG TAB PO SCH (21:26)
[2022-08-20] MEDS: MELATONIN 5 MG TABLET PO PRN (21:27)
[2022-08-21 00:42] VITALS: BP 114/70; PULSE 51; RESP 17; TEMP 98.3; O2SAT 99
[2022-08-21] MEDS: BENZONATATE 100 MG CAP PO SCH ×3 (03:21→12:00)
[2022-08-21 04:00] VITALS: BP 117/72; PULSE 69; RESP 17; TEMP 97.6; O2SAT 100
[2022-08-21] MEDS: LEVOTHYROXINE SODIUM 25 MCG TABLET PO SCH (05:48)
[2022-08-21 08:13] VITALS: BP 111/69; PULSE 66; RESP 18; TEMP 97.5; O2SAT 99
[2022-08-21 08:38] VITALS: BP 111/69; PULSE 66; RESP 18; TEMP 97.5; O2SAT 99
[2022-08-21] MEDS: MAGNESIUM OXIDE 400 MG TAB PO SCH (09:30)
[2022-08-21] MEDS: SENNA-S TABLET PO SCH (09:30)
[2022-08-21] MEDS: OXYBUTYNIN CHLORIDE 5 MG TAB PO SCH (09:30)
[2022-08-21] MEDS: METOPROLOL TARTRATE 25 MG TAB PO SCH (09:31)
[2022-08-21] MEDS: FLUCONAZOLE 200 MG/100 ML 100 ML IV SCH (10:13)
[2022-08-21] MEDS: SODIUM CHLORIDE 0.9% 1000ML 1,000 ML IV SCH (10:19)
[2022-08-21 11:50] VITALS: BP 138/56; PULSE 62; RESP 18; TEMP 98.4; O2SAT 100
[2022-08-22] MEDS ORDERED: FLUCONAZOLE 100 MG TAB PO SCH (10:00)
== END 2022-08-21 12:12 | disposition home or self-care (01) | DRG 698 ==
LOC: ER 14:31 → ERHOLD 17:41 → MED/SURG2 20:25
PROVIDERS: ADMIT Internal Medicine; ATTEND Internal Medicine
PROC: 0T788ZZ Dilation of Bilateral Ureters, Via Natural or Artificial Opening Endoscopic (ICD-10-PCS; 2022-08-18)
PROC: 3E0K8GC Introduction of Other Therapeutic Substance into Genitourinary Tract, Via Natural or Artificial Opening Endoscopic (ICD-10-PCS; 2022-08-18)
PROC: BT141ZZ Fluoroscopy of Kidneys, Ureters and Bladder using Low Osmolar Contrast (ICD-10-PCS; 2022-08-18)
PROC: 0T2BX0Z Change Drainage Device in Bladder, External Approach (ICD-10-PCS; principal; 2022-08-18 16:29)
DX: T83.518A Infection and inflammatory reaction due to other urinary catheter, initial encounter (principal); A41.52 Sepsis due to Pseudomonas; N39.0 Urinary tract infection, site not specified; N31.9 Neuromuscular dysfunction of bladder, unspecified; N39.498 Other specified urinary incontinence; Z99.3 Dependence on wheelchair; D64.9 Anemia, unspecified
CPT/HCPCS: 0223U; 36415; 74177; 74420; 80048; 80053; 81001; 82550; 82553; 82948; 83605; 83690; 84484; 85025; 85610; 85730; 87040; 87086; 87186; 93005; 99284; C1758; J0587; J0696; J1100; J1450; J2001; J2250; J2405; J2543; J7030; Q9967

== ENCOUNTER 2023-10-17 09:54 | Inpatient (IN) | payer MEDICARE, OTHER ==
[2023-10-17] VITALS (8 sets, daily range): BP systolic 142–178; BP diastolic 66–88; PULSE 60–69; RESP 16–18; TEMP 97.5–98.4; O2SAT 100
[~2023-10-17] VITALS: Ht 177.8 cm; Wt 65.8 kg
[~2023-10-17 09:54] MED LIST changes: +ACETAMINOPHEN-1 EAC4 PO; +BACTRIM DS TAB1 EACH PO; +CEFDINIR300 MG PO; -DEXAMETHASONE SOD PHOS INJ 4 MG/ML SDV ONE; -EPHEDRINE SULFATE INJ 50 MG/ML VIAL ONE; +GOLYTELY SOLU4000 M1 PO; -LIDOCAINE HCL 2% LOCAL INJ 5 ML SDV VIAL INJ ONE; +MACROBID 100 M100 MG PO; +NITROFURANTOIN100 MG PO; -ONDANSETRON HCL INJ 2MG/ML 2ML 2 MG/ML VIAL ONE; -POVIDONE IODINE 0.05% 0.05 % ML PO ONE; -PROPOFOL IV EMULSION 10 MG/ML 20 ML VIAL ONE; -SEVOFLURANE INHAL SOLN 250 ML PEN BTL ONE; +ZETIA10 MG PO
[2023-10-17 11:50] LABS: BASOPHILS % 0.5 % (0.0-1.0); EOSINOPHILS # (AUTO) 0.1 (0.0-0.4); EOSINOPHILS % 1.4 % (0.0-6.0); HEMATOCRIT 35.7 % (34.2-44.1); HEMOGLOBIN 12.3 g/dL (12.0-16.0); LYMPHOCYTES # (AUTO) 1.9 (1.0-3.2); LYMPHOCYTES % 32.5 % (18.0-39.1); MEAN CORPUSCULAR HEMOGLOBIN 31.6 pg (28-32); MEAN CORPUSCULAR HGB CONC 34.5 g/dL (31-35); MEAN CORPUSCULAR VOLUME 91.8 fL (81-99); MONOCYTES # (AUTO) 0.4 (0.2-0.8); MONOCYTES % 6.1 % (4.4-11.3); NEUTROPHILS # (AUTO) 3.4 (2.1-6.9); NEUTROPHILS % 59.3 % (38.7-80.0); PLATELET COUNT 238 x10e3/uL (140-360); RED BLOOD COUNT 3.89 x10e6/uL (3.6-5.1); WHITE BLOOD COUNT 5.76 x10e3/uL (4.8-10.8)
[2023-10-17 12:09] LABS: INR 0.94; PARTIAL THROMBOPLASTIN TIME 31.8 seconds (23.8-35.5); PROTHROMBIN TIME 13.2 seconds (11.9-14.5)
[2023-10-17 12:16] LABS: ALBUMIN 4.2 g/dL (3.5-5.0); ALKALINE PHOSPHATASE 85 IU/L (40-150); ANION GAP 14.3 mmol/L (8-16); BILIRUBIN,TOTAL 0.9 mg/dL (0.2-1.2); BLOOD UREA NITROGEN 14 mg/dL (7-26); BUN/CREATININE RATIO 18 (6-25); CALCIUM 9.6 mg/dL (8.4-10.2); CARBON DIOXIDE 23 mmol/L (22-29); CHLORIDE 101 mmol/L (98-107); CREATININE, SERUM 0.78 mg/dL (0.57-1.11); EST GLOMERULAR FILTRATION RATE 86 ML/MIN (>=60); GLUCOSE 122 mg/dL (74-118); SODIUM 135 mmol/L (136-145); TOTAL PROTEIN 8.5 g/dL (6.5-8.1)
[2023-10-17 12:20] LABS: ALANINE AMINOTRANSFERASE < 6 IU/L (0-55); POTASSIUM 3.3 mmol/L (3.5-5.1)
[2023-10-17] MEDS ORDERED: SODIUM CHLORIDE FLUSH 10 ML SYR INJ PRN (13:15)
[2023-10-17] MEDS ORDERED: ONDANSETRON HCL INJ 2MG/ML 2ML 2 MG/ML VIAL IV PRN (13:15)
[2023-10-17] MEDS ORDERED: SODIUM CHLORIDE 0.9% 500ML 500 ML ONE (14:56)
[2023-10-17] MEDS ORDERED: LIDOCAINE HCL 1% LOCAL INJ 20 ML VIAL ONE (14:56)
[2023-10-17 16:23] LABS: CLARITY,URINE CLOUDY (CLEAR); LEUKOCYTE ESTERASE ,URINE 1+ (NEGATIVE); NITRITE,URINE NEGATIVE (NEGATIVE); PH,URINE 5.5 (5 - 7)
[2023-10-17 16:24] LABS: BILIRUBIN,URINE NEGATIVE (NEGATIVE); COLOR,URINE RED (YELLOW); GLUCOSE, URINE NEGATIVE (NEGATIVE); KETONES,URINE NEGATIVE (NEGATIVE); PROTEIN,URINE DIPSTICK 2+ (NEGATIVE); URINE UROBILINOGEN 0.2 mg/dL (0.2 - 1)
[2023-10-17 16:30] LABS: BACTERIA,URINE RARE /HPF; EPITHELIAL CELLS,URINE RARE /LPF; RBC,URINE >50 /HPF (0-5)
[2023-10-17] MEDS ORDERED: METOPROLOL TART25 MG PO (16:50)
[2023-10-17] MEDS ORDERED: NITROFURANTOIN100 MG PO (16:50)
[2023-10-17] MEDS ORDERED: NEURONTIN100 MG PO (16:50)
[2023-10-17] MEDS ORDERED: DEXTROSE 50% SYRINGE 50 ML IV PRN (18:45)
[2023-10-17] MEDS ORDERED: DOCUSATE SODIUM 100 MG CAP PO PRN (18:45)
[2023-10-17] MEDS: METOPROLOL TARTRATE 25 MG TAB PO SCH (18:54)
[2023-10-17] MEDS: INSULIN GLARGINE 100 UNITS/ML VIAL SQ SCH (21:00)
[2023-10-17] MEDS: INSULIN LISPRO 100 UNIT/1 ML 3ML VIAL SQ SCH (21:00)
[2023-10-17] MEDS: GABAPENTIN 100 MG CAP PO SCH (21:40)
[2023-10-17] MEDS: OXYBUTYNIN CHLORIDE 5 MG TAB PO SCH (21:40)
[2023-10-17] MEDS: TRAZODONE HCL 50 MG TAB PO SCH (21:40)
[2023-10-18] VITALS (8 sets, daily range): BP systolic 96–152; BP diastolic 52–79; PULSE 64–78; RESP 18–20; TEMP 97.4–98.6; O2SAT 99–100
[2023-10-18 05:19] LABS: BASOPHILS % 0.7 % (0.0-1.0); EOSINOPHILS # (AUTO) 0.1 (0.0-0.4); EOSINOPHILS % 1.7 % (0.0-6.0); HEMATOCRIT 34.6 % (34.2-44.1); LYMPHOCYTES # (AUTO) 1.4 (1.0-3.2); LYMPHOCYTES % 22.9 % (18.0-39.1); MEAN CORPUSCULAR HEMOGLOBIN 31.4 pg (28-32); MEAN CORPUSCULAR HGB CONC 34.7 g/dL (31-35); MEAN CORPUSCULAR VOLUME 90.6 fL (81-99); MONOCYTES # (AUTO) 0.3 (0.2-0.8); MONOCYTES % 5.4 % (4.4-11.3); NEUTROPHILS # (AUTO) 4.1 (2.1-6.9); NEUTROPHILS % 69.1 % (38.7-80.0); PLATELET COUNT 230 x10e3/uL (140-360); RED BLOOD COUNT 3.82 x10e6/uL (3.6-5.1); RED CELL DISTRIBUTION WIDTH 11.9 % (11.7-14.4); WHITE BLOOD COUNT 5.95 x10e3/uL (4.8-10.8)
[2023-10-18] MEDS: LEVOTHYROXINE SODIUM 50 MCG TAB PO SCH (05:20)
[2023-10-18 05:44] LABS: ALBUMIN 3.5 g/dL (3.5-5.0); ALBUMIN/GLOBULIN RATIO 0.9 (0.8-2.0); ALKALINE PHOSPHATASE 63 IU/L (40-150); ANION GAP 15.9 mmol/L (8-16); BILIRUBIN,TOTAL 0.9 mg/dL (0.2-1.2); BLOOD UREA NITROGEN 13 mg/dL (7-26); BUN/CREATININE RATIO 19 (6-25); CALCIUM 8.9 mg/dL (8.4-10.2); CARBON DIOXIDE 22 mmol/L (22-29); CHLORIDE 105 mmol/L (98-107); CREATININE, SERUM 0.69 mg/dL (0.57-1.11); EST GLOMERULAR FILTRATION RATE 98 ML/MIN (>=60); GLUCOSE 103 mg/dL (74-118); POTASSIUM 3.9 mmol/L (3.5-5.1); SODIUM 139 mmol/L (136-145); TOTAL PROTEIN 7.3 g/dL (6.5-8.1)
[2023-10-18 05:47] LABS: ALANINE AMINOTRANSFERASE < 6 IU/L (0-55)
[2023-10-18] MEDS: INSULIN GLARGINE 100 UNITS/ML VIAL SQ SCH (07:30)
[2023-10-18] MEDS: EZETIMIBE 10 MG TAB PO SCH ×2 (08:10→20:56)
[2023-10-18] MEDS: ACETAMINOPHEN 325 MG TAB PO PRN (13:34)
[2023-10-19] VITALS: BP 92/66; PULSE 65; RESP 16; TEMP 97.8; O2SAT 100
[2023-10-19 05:30] VITALS: BP 101/58; PULSE 66; RESP 18; TEMP 97.7; O2SAT 100
[2023-10-19 08:09] VITALS: BP 116/60; PULSE 64; RESP 20; TEMP 98.8; O2SAT 99
[2023-10-19 09:00] VITALS: BP 116/60; PULSE 64; RESP 20; TEMP 98.8; O2SAT 99
[2023-10-19] MEDS ORDERED: ONDANSETRON HCL 4 MG ORAL DISINTEGRATING TAB PO PRN (11:30)
[2023-10-19 12:18] VITALS: BP 115/61; PULSE 65; RESP 19; TEMP 98.3; O2SAT 100
== END 2023-10-19 12:10 | disposition home or self-care (01) | DRG 699 ==
LOC: ER 09:59 → ERHOLD 13:13 → MED/SURG2 13:52 → OBSVTOIN 18:35
PROVIDERS: ADMIT Internal Medicine; ATTEND Internal Medicine
PROC: 0T2BX0Z Change Drainage Device in Bladder, External Approach (ICD-10-PCS; principal; 2023-10-17)
DX: T83.510A Infection and inflammatory reaction due to cystostomy catheter, initial encounter (principal); I69.359 Hemiplegia and hemiparesis following cerebral infarction affecting unspecified side; N82.0 Vesicovaginal fistula; Z16.24 Resistance to multiple antibiotics; N39.0 Urinary tract infection, site not specified; T83.020A Displacement of cystostomy catheter, initial encounter; Z43.5 Encounter for attention to cystostomy; B96.5 Pseudomonas (aeruginosa) (mallei) (pseudomallei) as the cause of diseases classified elsewhere; B96.20 Unspecified Escherichia coli [E. coli] as the cause of diseases classified elsewhere; Y83.3 Surgical operation with formation of external stoma as the cause of abnormal reaction of the patient, or of later complication, without mention of misadventure at the time of the procedure; Y92.009 Unspecified place in unspecified non-institutional (private) residence as the place of occurrence of the external cause; N31.9 Neuromuscular dysfunction of bladder, unspecified; R33.9 Retention of urine, unspecified; I10 Essential (primary) hypertension; R53.81 Other malaise; D64.9 Anemia, unspecified; R63.4 Abnormal weight loss; Z68.20 Body mass index [BMI] 20.0-20.9, adult; M24.50 Contracture, unspecified joint; E11.9 Type 2 diabetes mellitus without complications; R31.29 Other microscopic hematuria; Z91.199 Patient's noncompliance with other medical treatment and regimen due to unspecified reason; Z85.42 Personal history of malignant neoplasm of other parts of uterus; Z90.710 Acquired absence of both cervix and uterus; Z74.01 Bed confinement status; Z99.3 Dependence on wheelchair
CPT/HCPCS: 36415; 51705; 72192; 74470; 80053; 81001; 82948; 85025; 85610; 85730; 87086; 87186; 99284; J0692; J1815; J2001; J7040; U0002